=== PATIENT | male | born 1945 | race Caucasian/White ===

== ENCOUNTER → 2018-08-28 09:57 | Outpatient (CLI) | payer MEDICARE, SELFPAY | PROVIDERS: Family Provider Family Medicine; PCP Family Medicine; Visit Provider Family Medicine | DX: E11.621 Type 2 diabetes mellitus with foot ulcer (principal); L97.521 Non-pressure chronic ulcer of other part of left foot limited to breakdown of skin | CPT/HCPCS: 97597; 99202; 99213 ==

== ENCOUNTER → 2018-09-04 10:33 | Outpatient (CLI) | payer MEDICARE, SELFPAY | PROVIDERS: Family Provider Family Medicine; PCP Family Medicine; Visit Provider Family Medicine | DX: L89.893 Pressure ulcer of other site, stage 3 (principal); E08.40 Diabetes mellitus due to underlying condition with diabetic neuropathy, unspecified; E08.621 Diabetes mellitus due to underlying condition with foot ulcer; E11.59 Type 2 diabetes mellitus with other circulatory complications | CPT/HCPCS: 11042; 87070; 87077; 87186; 87205; 93922; 99213 ==

== ENCOUNTER → 2018-09-11 11:08 | Outpatient (CLI) | payer MEDICARE, SELFPAY | PROVIDERS: Family Provider Family Medicine; PCP Family Medicine; Visit Provider Podiatrist Primary Podiatric Medicine | DX: E11.621 Type 2 diabetes mellitus with foot ulcer (principal); L97.521 Non-pressure chronic ulcer of other part of left foot limited to breakdown of skin | CPT/HCPCS: 97597 ==

== ENCOUNTER → 2018-09-18 09:40 | Outpatient (CLI) | payer MEDICARE, SELFPAY | PROVIDERS: Family Provider Family Medicine; PCP Family Medicine; Visit Provider Podiatrist Primary Podiatric Medicine | DX: E11.621 Type 2 diabetes mellitus with foot ulcer (principal); L97.511 Non-pressure chronic ulcer of other part of right foot limited to breakdown of skin | CPT/HCPCS: 97597 ==

== ENCOUNTER → 2018-10-02 09:05 | Outpatient (CLI) | payer MEDICARE, SELFPAY | PROVIDERS: Family Provider Family Medicine; PCP Family Medicine; Visit Provider Family Medicine | DX: E11.621 Type 2 diabetes mellitus with foot ulcer (principal); L97.521 Non-pressure chronic ulcer of other part of left foot limited to breakdown of skin | CPT/HCPCS: 97597 ==

== ENCOUNTER → 2018-10-09 08:43 | Outpatient (CLI) | payer MEDICARE, SELFPAY | PROVIDERS: Family Provider Family Medicine; PCP Family Medicine; Visit Provider Podiatrist Primary Podiatric Medicine | DX: E11.621 Type 2 diabetes mellitus with foot ulcer (principal); L97.521 Non-pressure chronic ulcer of other part of left foot limited to breakdown of skin | CPT/HCPCS: 97597 ==

== ENCOUNTER → 2018-10-16 09:04 | Outpatient (CLI) | payer MEDICARE, SELFPAY | PROVIDERS: Family Provider Family Medicine; PCP Family Medicine; Visit Provider Podiatrist Primary Podiatric Medicine | DX: E11.621 Type 2 diabetes mellitus with foot ulcer (principal); L97.521 Non-pressure chronic ulcer of other part of left foot limited to breakdown of skin | CPT/HCPCS: 97597 ==

== ENCOUNTER → 2018-10-23 09:30 | Outpatient (CLI) | payer MEDICARE, SELFPAY | PROVIDERS: Family Provider Family Medicine; PCP Family Medicine; Visit Provider Podiatrist Primary Podiatric Medicine | DX: E11.621 Type 2 diabetes mellitus with foot ulcer (principal); L97.521 Non-pressure chronic ulcer of other part of left foot limited to breakdown of skin | CPT/HCPCS: 97597 ==

== ENCOUNTER → 2018-11-06 09:39 | Outpatient (CLI) | payer MEDICARE, SELFPAY | PROVIDERS: Family Provider Family Medicine; PCP Family Medicine; Visit Provider Podiatrist Primary Podiatric Medicine | DX: Z48.817 Encounter for surgical aftercare following surgery on the skin and subcutaneous tissue (principal) | CPT/HCPCS: 99212; 99213 ==

== ENCOUNTER → 2019-06-05 09:08 | Outpatient (CLI) | payer MEDICARE, SELFPAY ==
--- NOTE | 2019-06-05 | DI.US.S_ITS ---
PROCEDURE: US ABDOMEN COMPLETE INDICATIONS: EPIGASTRIC PAIN TECHNIQUE: Real-time scanning was performed of the abdominal and retroperitoneal organs, with image documentation. COMPARISON: None. FINDINGS: Liver: Liver is normal in size and homogeneous in echotexture. Gallbladder: No findings of gallstones or sludge are seen. The gallbladder wall is not thickened, measuring 3 mm or less. No specific pericholecystic fluid is seen. The sonographic Crawford sign is negative. Biliary ducts: Intrahepatic bile ducts are non-dilated. Extrahepatic bile duct caliber measures 5 mm. Normal is 6-7 mm or less in diameter, or 10 mm or less post-cholecystectomy. Pancreas: Visualized portions of the pancreas are sonographically normal. Spleen: Spleen is normal in size and homogeneous in echotexture. Kidneys: Kidneys are normal in size and echotexture. Right kidney measures 11.9 cm long; left kidney measures 11.4 cm long. No hydronephrosis or nephrolithiasis. No solid masses. Aorta: Visualized aorta is normal in caliber at less than 3 cm. Iliacs: Not seen. IVC: Intrahepatic inferior vena cava is patent. Miscellaneous: No free abdominal fluid. IMPRESSION: The gallbladder demonstrates a normal sonographic appearance. No biliary dilatation is seen. Dictated by: Chetan Saab M.D. on 06/05/2019 at 11:27 Approved by: Chetan Saab M.D. on 06/05/2019 at 11:28
== END ==
PROVIDERS: Family Provider Family Medicine; PCP Family Medicine; Referring Provider Family Medicine; Visit Provider Family Medicine
DX: R10.13 Epigastric pain (principal)
CPT/HCPCS: 76700

== ENCOUNTER → 2019-08-14 13:19 | Outpatient (CLI) | payer MEDICARE, SELFPAY ==
--- NOTE | 2019-08-14 | DI.MRI.S_ITS ---
PROCEDURE: MR STROKE Pre- and post-contrast brain MRI, non-contrast brain MR angiogram, pre- and postcontrast neck MR angiogram INDICATIONS: Sensorineural hearing loss, bilateral TECHNIQUE: Brain: Noncontrast axial T1 spin echo, axial T2 fast spin echo, sagittal and axial FLAIR, coronal T2 fast spin echo, axial gradient echo, axial diffusion and ADC through the brain. After the administration of contrast, axial 3D VIBE of the cranial vasculature and brain. Brain MRA: Non-contrast 3-D time of flight MR angiogram, with multiple gkgsyyr-dkjzrorxs-wmhkyiwajw (MIP) reformats performed. Neck MRA: Axial and sagittal TruFISP through the neck. Coronal dynamic MR angiogram during administration of contrast in the arterial and venous phases, with 3-dimenstional oflmhea-hajnnuzas-kmrzvkvqtd (MIP) reformats constructed from subtraction images. COMPARISON: None. FINDINGS: Image quality: Excellent. BRAIN: CSF spaces: Ventricles are normal in size and shape. Basal cisterns are patent. No extra-axial fluid collections. Brain: There is a small area of old infarct in the right frontoparietal lobe with encephalomalacia and gliosis. No intracranial bleeds or mass effects. Price-white matter interface is normal. Diffusion weighted images show no acute ischemic insults. Brainstem appears normal. Normal intravascular flow voids are present. No abnormal intracranial enhancement. Skull and face: Calvarial marrow signal is normal. Orbits appear normal. Sinuses: There is a mucus retention cyst or polyp in the left maxillary sinus. The mastoids are clear. BRAIN MR ANGIOGRAM: Anterior circulation: The right internal carotid artery is occluded distally. The left internal carotid is normal in size and enhancement. Possible small saccular aneurysm along the inferior wall of the distal left internal carotid (cavernous segment). The flow within the paired anterior cerebral arteries is normal and symmetric. The flow within the middle cerebral arteries is normal and symmetric. The right middle cerebral artery is supplied from collateral flows via the [place]. The anterior communicating artery is seen. No aneurysms. Posterior circulation: The visualized portions of the vertebral arteries demonstrate normal caliber, and join to form a normal appearing basilar artery. The flow within the posterior cerebral arteries is normal and symmetric. No stenoses, occlusions, or aneurysms. NECK MR ANGIOGRAM: Carotids: Great vessels demonstrate a conventional anatomy as they arise from the aortic arch. The origins of the common carotid arteries appear patent. The calibers and courses of both common carotid arteries are normal. There is occlusion of the right internal cord artery just beyond the carotid bifurcation. The left internal carotid artery demonstrates normal course and caliber. Posterior circulation: Dominant right vertebral artery which is patent and normal in caliber. The origin of the left vertebral artery is not well seen. More superior portions of both vertebral arteries demonstrate normal course and caliber, and join to form a normal appearing basilar artery. Miscellaneous: Subclavian arteries appear patent. Pre-contrast images through the neck show no soft tissue abnormalities. IMPRESSION: BRAIN MRI: 1. No acute intracranial abnormalities. 2. 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 3. Cerebral volume loss and chronic microvascular ischemic changes. 4. Mucus retention cyst or polyp in the left maxillary sinus. BRAIN MR ANGIOGRAM: 1. 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 2. 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 NECK MR ANGIOGRAM: 1. Occlusion of the right internal carotid artery just beyond the carotid bifurcation. 2. Left vertebral artery origin is not well-seen. 3. Dominant right vertebral artery. Dictated by: Emanuel Ricketts M.D. on 08/14/2019 at 15:11 Approved by: Emanuel Ricketts M.D. on 08/14/2019 at 15:46
== END ==
PROVIDERS: Family Provider Family Medicine; PCP Family Medicine; Referring Provider Family Medicine; Visit Provider Family Medicine
DX: H90.3 Sensorineural hearing loss, bilateral (principal); R27.0 Ataxia, unspecified; I65.21 Occlusion and stenosis of right carotid artery; I69.398 Other sequelae of cerebral infarction; G93.89 Other specified disorders of brain
CPT/HCPCS: 70548; 70553; A9579

== ENCOUNTER → 2020-04-23 09:32 | Outpatient (CLI) | payer MEDICARE, OTHER, SELFPAY ==
--- NOTE | 2020-04-23 18:29 | DI.NM.S_ITS ---
DATE OF SERVICE: 04/23/2020 PROCEDURE: Exercise perfusion study. INDICATIONS: Coronary artery disease, history of RCA stent, peripheral artery disease, hypertension, hyperlipidemia, shortness of breath, COPD. RADIOPHARMACEUTICAL: 26.9 millicurie technetium-99m Myoview IV was injected at stress and 13.9 millicurie technetium-99m Myoview IV was injected at rest. CARDIAC STRESS: The patient underwent exercise perfusion study under the supervision of an attending staff. He walked on modified Wally protocol for 3 minutes 28 seconds and achieved a heart rate of 123 beats per minute. There was a normal blood pressure response. The patient developed significant shortness of breath within 1 minute of exercise. No chest pain. Baseline rhythm was atrial fibrillation with controlled ventricular rate. During exercise, there was enhanced chronotropic response. Maximum heart rate was 179 beats per minute. During exercise, there were significant artifacts seen. Hence, difficult interpretation, however, in the immediate recovery, there were no significant ischemic changes seen. The patient remained in AFib. RAW DATA: There is increased subdiaphragmatic activity. GATED STUDY: Stress LV ejection fraction is 73 percent without any obvious wall motion abnormalities. Resting end-diastolic volume 115 mL. TID ratio 0.75, which is within normal limits. Lung/heart ratio 0.38, which is within normal limits. MYOCARDIAL PERFUSION: Stress supine, resting supine and stress prone images were compared to each other. Stress supine images revealed very small minimally decreased perfusion of inferior wall, which got resolved during prone images suggestive of diaphragmatic tissue attenuation artifact. Overall, I do not see any convincing ischemia infarction pattern. CONCLUSION: I will call this likely a normal myocardial perfusion study with evidence of diaphragmatic tissue attenuation artifact ,which got improved during prone images. The patient has baseline AFib. Poor exercise tolerance. Patient developed significant shortness of breath during exercise. The patient has underlying COPD, as well. Left ventricular function appears to be preserved. Overall, as far as perfusion scan is concerned, this is a low-risk myocardial perfusion scan. Correlate clinically. Brian Helton - MEENAKSHI/ebony/michael doc#: [id number]/job#: [id number] dd: 04/23/2020 17:25:00 dt: 04/23/2020 18:18:00 DICTATING MD/COPIES TO: Sidra Quijano MD COPIES MNE: BERNADINE;
== END ==
PROVIDERS: Family Provider Family Medicine; PCP Family Medicine; Referring Provider Internal Medicine Cardiovascular Disease; Visit Provider Internal Medicine Cardiovascular Disease
DX: I25.10 Atherosclerotic heart disease of native coronary artery without angina pectoris (principal); R42 Dizziness and giddiness; I73.9 Peripheral vascular disease, unspecified; I10 Essential (primary) hypertension; E78.5 Hyperlipidemia, unspecified; R06.02 Shortness of breath; J44.9 Chronic obstructive pulmonary disease, unspecified; Z95.5 Presence of coronary angioplasty implant and graft
CPT/HCPCS: 78452; 93017; A9502

== ENCOUNTER → 2020-05-22 10:51 | Outpatient (CLI) | payer MEDICARE, OTHER, SELFPAY ==
--- NOTE | 2020-05-22 | DI.MRI.S_ITS ---
PROCEDURE: MR STROKE Pre- and post-contrast brain MRI, non-contrast brain MR angiogram, pre- and postcontrast neck MR angiogram INDICATIONS: Dizziness and giddiness TECHNIQUE: Brain: Noncontrast axial T1 spin echo, axial T2 fast spin echo, sagittal and axial FLAIR, coronal T2 fast spin echo, axial gradient echo, axial diffusion and ADC through the brain. After the administration of contrast, axial 3D VIBE of the cranial vasculature and brain. Brain MRA: Non-contrast 3-D time of flight MR angiogram, with multiple dkxhwke-bavompkpp-dhxhdsiavn (MIP) reformats performed. Neck MRA: Axial and sagittal TruFISP through the neck. Coronal dynamic MR angiogram during administration of contrast in the arterial and venous phases, with 3-dimenstional rybpzic-aojscmirx-msraqkidgo (MIP) reformats constructed from subtraction images. COMPARISON: [facility], MR, MR STROKE, 08/14/2019, 13:58. FINDINGS: Image quality: Excellent. BRAIN: CSF spaces: Ventricles are normal in size and shape, with note made of stable asymmetry of the lateral ventricles, with the right smaller than the left. This is considered to be within developmental limits.. Basal cisterns are patent. No extra-axial fluid collections. Brain: No intracranial bleeds or mass effects. Price-white matter interface is normal. Diffusion weighted images show no acute ischemic insults. A remote infarction is again seen involving the right frontal parietal region. Brain parenchymal volume loss is seen. Chronic small vessel ischemic changes are seen. Brainstem appears normal. No abnormal intracranial enhancement. Relatively prominent perivascular spaces are noted. Skull and face: Calvarial marrow signal is normal. Orbits appear normal. Sinuses: No significant paranasal sinus abnormality is seen. There is moderate abnormal fluid seen within the left mastoid air cells. Mild leftward nasal septal deviation is incidentally noted. BRAIN MR ANGIOGRAM: Anterior circulation: There is no flow seen within the right internal carotid artery. The left internal carotid artery is robust. 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 The flow within the paired anterior cerebral arteries is normal and symmetric. The flow within the middle cerebral arteries is asymmetric and decreased on the right. The anterior communicating artery is seen. Posterior circulation: The visualized portions of the vertebral arteries demonstrate normal caliber, and join to form a normal appearing basilar artery. The flow within the posterior cerebral arteries is normal and symmetric. No stenoses, occlusions, or aneurysms. NECK MR ANGIOGRAM: Carotids: Great vessels demonstrate a conventional anatomy as they arise from the aortic arch. The origins of the common carotid arteries appear patent. The calibers and courses of both common carotid arteries are normal. The bifurcation regions demonstrate atherosclerotic irregularity. There is complete occlusion of the right internal carotid artery at its origin. There is a high-grade stenosis seen involving the right proximal external carotid artery, approximately 70%. No hemodynamically significant stenosis can be seen involving the left internal carotid artery. Posterior circulation: There is approximately 50% narrowing seen involving the origin of the left vertebral artery. More superior portions of both vertebral arteries demonstrate normal course. The right vertebral artery is dominant to the left. Miscellaneous: Subclavian arteries appear patent. Pre-contrast images through the neck show no soft tissue abnormalities. IMPRESSION: BRAIN MRI: No findings of acute or subacute infarction can be seen. Note is made of age-appropriate brain parenchymal volume loss and chronic small vessel ischemic changes. There is a remote right frontoparietal region infarct. No masses or abnormal enhancement can be seen. BRAIN MR ANGIOGRAM: No flow seen within the right internal carotid artery. There is mild asymmetric flow seen within the middle cerebral arteries, right decreased compared to left. 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 NECK MR ANGIOGRAM: There is complete occlusion of the right internal carotid artery at its origin, as previously demonstrated. There is no significant stenosis seen of the left internal carotid artery. There is approximately 50% narrowing seen involving the origin of the left vertebral artery. The right vertebral artery is dominant to the left. Dictated by: Chetan Saab M.D. on 05/22/2020 at 11:04 Approved by: Chetan Saab M.D. on 05/22/2020 at 11:22
== END ==
PROVIDERS: Family Provider Family Medicine; PCP Family Medicine; Referring Provider Family Medicine; Visit Provider Family Medicine
DX: R42 Dizziness and giddiness (principal); I65.21 Occlusion and stenosis of right carotid artery
CPT/HCPCS: 70548; 70553

== ENCOUNTER → 2020-10-10 11:43 | Outpatient (CLI) | payer MEDICARE, OTHER, SELFPAY ==
[2020-10-10 20:22] LABS: COVID19 - ORCAS (NP or Nasal) Negative (Negative)
== END ==
PROVIDERS: Family Provider Family Medicine; PCP Family Medicine; Visit Provider Family Medicine
DX: Z20.822 Contact with and (suspected) exposure to COVID-19 (principal)
CPT/HCPCS: C9803; U0003

== ENCOUNTER → 2020-12-05 08:33 | Outpatient (CLI) | payer MEDICARE, OTHER, SELFPAY ==
[2020-12-05 19:31] LABS: COVID19 - ORCAS (NP or Nasal) Negative (Negative)
== END ==
PROVIDERS: Family Provider Family Medicine; PCP Family Medicine; Referring Provider Family Medicine; Visit Provider Family Medicine
DX: Z20.822 Contact with and (suspected) exposure to COVID-19 (principal)
CPT/HCPCS: U0003

== ENCOUNTER → 2021-07-30 11:23 | Outpatient (CLI) | payer MEDICARE, OTHER, SELFPAY ==
[2021-07-30 20:05] LABS: Prothrombin Time 70.7 SECONDS (10.1-12.7)
[2021-07-30 20:15] LABS: INR 5.9 (0.9-1.3)
== END ==
PROVIDERS: Family Provider Family Medicine; PCP Family Medicine; Visit Provider Family Medicine
DX: Z79.01 Long term (current) use of anticoagulants (principal)
CPT/HCPCS: 85610

== ENCOUNTER → 2021-09-11 11:13 | Outpatient (CLI) | payer MEDICARE, OTHER, SELFPAY ==
[2021-09-11 19:57] LABS: COVID19 - ORCAS (NP or Nasal) Negative (Negative)
== END ==
PROVIDERS: Family Provider Family Medicine; PCP Family Medicine; Visit Provider Physician Assistant Medical
DX: Z20.822 Contact with and (suspected) exposure to COVID-19 (principal)
CPT/HCPCS: U0003

== ENCOUNTER → 2021-10-29 10:46 | Outpatient (CLI) | payer MEDICARE, OTHER, SELFPAY ==
[2021-10-29 19:33] LABS: Hemoglobin A1C% w Est Avg Glu 8.6 % (4.0-6.0)
== END ==
PROVIDERS: Family Provider Family Medicine; PCP Family Medicine; Visit Provider Physician Assistant
DX: E11.69 Type 2 diabetes mellitus with other specified complication (principal); E78.5 Hyperlipidemia, unspecified
CPT/HCPCS: 83036

== ENCOUNTER 2021-12-16 12:30 | Outpatient (RCR) | payer MEDICARE, OTHER, SELFPAY | END 2021-12-16 14:30 | LOC: PUL 12:30 | PROVIDERS: Family Provider Family Medicine; PCP Family Medicine; Referring Provider Internal Medicine Critical Care Medicine; Visit Provider Internal Medicine Critical Care Medicine | DX: J43.2 Centrilobular emphysema (principal) | CPT/HCPCS: 94626 ==

== ENCOUNTER → 2022-02-23 14:45 | Outpatient (CLI) | payer MEDICARE, OTHER, SELFPAY ==
[2022-02-23 19:23] LABS: Add Manual Diff / Slide Review NO; Alanine Aminotransferase 22 IU/L (<50); Albumin 3.7 g/dL (3.5-5.0); Albumin Globulin Ratio 1.3 (1.0-2.8); Alkaline Phosphatase 133 U/L (38-126); Aspartate Aminotransferase 23 IU/L (17-59); BUN Creatinine Ratio 19.4 (6-22); Basophils Absolute Auto 100 /uL (0-100); Basophils Percent Auto 1.2 % (0-2); Bilirubin Total 0.5 mg/dL (0.2-1.3); Blood Urea Nitrogen 19 mg/dL (9-20); Calcium 9.2 mg/dL (8.4-10.2); Carbon Dioxide 25 mmol/L (22-32); Chloride 103 mmol/L (98-107); Eosinophils Absolute Auto 700 /uL (0-450); Estimated Glomerular Filt Rate > 60 mL/min (>60); Globulin 2.8 g/dL (1.7-4.1); Glucose 132 mg/dL (80-110); HEMOLYSIS < 15 (0-50); Hematocrit 36.3 % (41-53); Hemoglobin 12.3 g/dL (13.5-17.5); Lymphocytes Absolute Auto 1200 /uL (1100-4500); Lymphocytes Percent Auto 13.9 % (25-40); Mean Corpuscular HGB Conc 33.8 % (30-36); Mean Corpuscular Hemoglobin 30.7 PG (26-34); Mean Corpuscular Volume 90.9 fL (80-100); Monocytes Absolute Auto 800 /uL (0-900); Monocytes Percent Auto 9.3 % (3-14); Neutrophils Absolute Auto 5900 /uL (1500-7000); Neutrophils Percent Auto 67.6 % (50-75); Platelet Count 195 X10^3/uL (150-400); Potassium 4.2 mmol/L (3.4-5.1); Red Blood Cell Count 3.99 X10^6/uL (4.5-5.9); Red Cell Distribution Width 15.1 % (11.6-14.8); Sodium 140 mmol/L (137-145); Total Protein 6.5 g/dL (6.3-8.2); Uric Acid 5.7 mg/dL (3.5-8.5); White Blood Cell Count 8.8 X10^3/uL (4.5-11.0)
[2022-02-23 20:25] LABS: Erythrocyte Sedimentation Rate 34 MM/HR (0-15)
== END ==
PROVIDERS: Family Provider Family Medicine; PCP Physician Assistant; Visit Provider Physician Assistant
DX: I27.81 Cor pulmonale (chronic) (principal); E11.9 Type 2 diabetes mellitus without complications; M79.673 Pain in unspecified foot
CPT/HCPCS: 80053; 84550; 85025; 85651

== ENCOUNTER → 2022-04-27 09:19 | Outpatient (CLI) | payer MEDICARE, OTHER, SELFPAY ==
[2022-04-27 19:46] LABS: BUN Creatinine Ratio 19.1 (6-22); Blood Urea Nitrogen 18 mg/dL (9-20); Calcium 8.7 mg/dL (8.4-10.2); Carbon Dioxide 25 mmol/L (22-32); Chloride 103 mmol/L (98-107); Cholesterol 138 mg/dL (140-199); Estimated Glomerular Filt Rate > 60 mL/min (>60); Glucose 117 mg/dL (80-110); HDL Cholesterol 36 mg/dL (40-60); HEMOLYSIS < 15 (0-50); LDL Cholesterol Calculated 82 mg/dL (<100); Potassium 4.5 mmol/L (3.4-5.1); Sodium 137 mmol/L (137-145); Triglycerides 98 mg/dL (35-150)
[2022-04-27 19:49] LABS: Add Manual Diff / Slide Review NO; Basophils Absolute Auto 100 /uL (0-100); Basophils Percent Auto 1.3 % (0-2); Eosinophils Absolute Auto 500 /uL (0-450); Hematocrit 37.6 % (41-53); Hemoglobin 12.2 g/dL (13.5-17.5); Lymphocytes Absolute Auto 1200 /uL (1100-4500); Mean Corpuscular HGB Conc 32.6 % (30-36); Mean Corpuscular Hemoglobin 29.6 PG (26-34); Mean Corpuscular Volume 90.9 fL (80-100); Monocytes Absolute Auto 700 /uL (0-900); Monocytes Percent Auto 9.5 % (3-14); Neutrophils Absolute Auto 5100 /uL (1500-7000); Neutrophils Percent Auto 66.2 % (50-75); Platelet Count 186 X10^3/uL (150-400); Red Blood Cell Count 4.14 X10^6/uL (4.5-5.9); Red Cell Distribution Width 14.3 % (11.6-14.8); White Blood Cell Count 7.8 X10^3/uL (4.5-11.0)
== END ==
PROVIDERS: Family Provider Family Medicine; PCP Physician Assistant; Visit Provider Internal Medicine Cardiovascular Disease
DX: I25.10 Atherosclerotic heart disease of native coronary artery without angina pectoris (principal); E78.5 Hyperlipidemia, unspecified
CPT/HCPCS: 80048; 80061; 85025

== ENCOUNTER → 2022-10-13 09:25 | Outpatient (CLI) | payer MEDICARE, OTHER, SELFPAY ==
[2022-10-13 19:57] LABS: Add Manual Diff / Slide Review NO; Basophils Absolute Auto 100 /uL (0-100); Basophils Percent Auto 1.2 % (0-2); Eosinophils Absolute Auto 300 /uL (0-450); Eosinophils Percent Auto 5.5 % (2-4); Hematocrit 33.3 % (41-53); Hemoglobin 11.1 g/dL (13.5-17.5); Lymphocytes Absolute Auto 1300 /uL (1100-4500); Lymphocytes Percent Auto 19.9 % (25-40); Mean Corpuscular HGB Conc 33.5 % (30-36); Mean Corpuscular Hemoglobin 30.3 PG (26-34); Mean Corpuscular Volume 90.6 fL (80-100); Monocytes Absolute Auto 800 /uL (0-900); Monocytes Percent Auto 12.2 % (3-14); Neutrophils Absolute Auto 3900 /uL (1500-7000); Neutrophils Percent Auto 61.2 % (50-75); Platelet Count 202 X10^3/uL (150-400); Red Blood Cell Count 3.67 X10^6/uL (4.5-5.9); Red Cell Distribution Width 15.9 % (11.6-14.8); White Blood Cell Count 6.3 X10^3/uL (4.5-11.0)
[2022-10-13 19:58] LABS: Alanine Aminotransferase 20 IU/L (<50); Albumin 3.4 g/dL (3.5-5.0); Alkaline Phosphatase 107 U/L (38-126); Aspartate Aminotransferase 20 IU/L (17-59); BUN Creatinine Ratio 18.3 (6-22); Bilirubin Total 0.8 mg/dL (0.2-1.3); Blood Urea Nitrogen 17 mg/dL (9-20); Calcium 8.9 mg/dL (8.4-10.2); Carbon Dioxide 25 mmol/L (22-32); Chloride 103 mmol/L (98-107); Estimated Glomerular Filt Rate > 60 mL/min (>60); Globulin 3.3 g/dL (1.7-4.1); Glucose 105 mg/dL (80-110); HEMOLYSIS < 15 (0-50); Potassium 4.5 mmol/L (3.4-5.1); Sodium 136 mmol/L (137-145); Total Protein 6.7 g/dL (6.3-8.2)
[2022-10-14 21:40] LABS: x Labcorp Estim. Avg Glu (eAG) 143 mg/dL (.); x Labcorp Hemoglobin A1c 6.6 % (4.8-5.6)
== END ==
PROVIDERS: Family Provider Family Medicine; PCP Physician Assistant; Visit Provider Physician Assistant
DX: I27.81 Cor pulmonale (chronic) (principal); E11.9 Type 2 diabetes mellitus without complications; L08.9 Local infection of the skin and subcutaneous tissue, unspecified
CPT/HCPCS: 80053; 83036; 85025

== ENCOUNTER → 2022-10-21 13:16 | Outpatient (CLI) | payer MEDICARE, OTHER, SELFPAY ==
[2022-10-25 11:52] LABS: Fecal Immunochemical Test Positive (Negative)
== END ==
PROVIDERS: Family Provider Family Medicine; PCP Physician Assistant; Visit Provider Physician Assistant
DX: D64.9 Anemia, unspecified (principal)
CPT/HCPCS: 82274

== ENCOUNTER → 2022-10-28 12:50 | Outpatient (CLI) | payer MEDICARE, OTHER, SELFPAY | PROVIDERS: Family Provider Family Medicine; PCP Physician Assistant; Referring Provider Physician Assistant; Visit Provider Surgery | DX: E11.622 Type 2 diabetes mellitus with other skin ulcer (principal); L98.492 Non-pressure chronic ulcer of skin of other sites with fat layer exposed; M19.041 Primary osteoarthritis, right hand; I48.91 Unspecified atrial fibrillation; Z79.84 Long term (current) use of oral hypoglycemic drugs; Z79.85 Long-term (current) use of injectable non-insulin antidiabetic drugs; Z79.01 Long term (current) use of anticoagulants | CPT/HCPCS: 11042; 99203; 99212 ==

== ENCOUNTER → 2022-11-04 15:34 | Outpatient (CLI) | payer MEDICARE, OTHER, SELFPAY | PROVIDERS: Family Provider Family Medicine; PCP Physician Assistant; Referring Provider Physician Assistant; Visit Provider Surgery | DX: E11.622 Type 2 diabetes mellitus with other skin ulcer (principal); L98.492 Non-pressure chronic ulcer of skin of other sites with fat layer exposed; Z79.01 Long term (current) use of anticoagulants | CPT/HCPCS: 11042 ==

== ENCOUNTER → 2022-11-11 10:32 | Outpatient (CLI) | payer MEDICARE, OTHER, SELFPAY | PROVIDERS: Family Provider Family Medicine; PCP Physician Assistant; Referring Provider Physician Assistant; Visit Provider Surgery | DX: E11.622 Type 2 diabetes mellitus with other skin ulcer (principal); L98.492 Non-pressure chronic ulcer of skin of other sites with fat layer exposed | CPT/HCPCS: 15275; Q4196 ==

== ENCOUNTER → 2022-11-18 11:12 | Outpatient (CLI) | payer MEDICARE, OTHER, SELFPAY | PROVIDERS: Family Provider Family Medicine; PCP Physician Assistant; Referring Provider Physician Assistant; Visit Provider Surgery | DX: E11.628 Type 2 diabetes mellitus with other skin complications (principal); S61.202A Unspecified open wound of right middle finger without damage to nail, initial encounter | CPT/HCPCS: 15275; Q4196 ==

== ENCOUNTER → 2023-01-07 09:26 | Outpatient (CLI) | payer MEDICARE, OTHER, SELFPAY | PROVIDERS: Family Provider Family Medicine; PCP Family Medicine; Visit Provider Family Medicine | DX: M00.9 Pyogenic arthritis, unspecified (principal) | CPT/HCPCS: 87070; 87075; 87077; 87147; 87186; 87205 ==

== ENCOUNTER → 2023-01-12 11:16 | Outpatient (CLI) | payer MEDICARE, OTHER, SELFPAY ==
[2023-01-12 12:46] LABS: Add Manual Diff / Slide Review NO; Basophils Absolute Auto 100 /uL (0-100); Basophils Percent Auto 1.2 % (0-2); Eosinophils Absolute Auto 400 /uL (0-450); Eosinophils Percent Auto 4.6 % (2-4); Hematocrit 23.6 % (41-53); Lymphocytes Absolute Auto 1200 /uL (1100-4500); Lymphocytes Percent Auto 15.9 % (25-40); Mean Corpuscular HGB Conc 34.1 % (30-36); Monocytes Absolute Auto 600 /uL (0-900); Monocytes Percent Auto 8.4 % (3-14); Neutrophils Absolute Auto 5400 /uL (1500-7000); Neutrophils Percent Auto 69.9 % (50-75); Platelet Count 290 X10^3/uL (150-400); Red Blood Cell Count 2.59 X10^6/uL (4.5-5.9); Red Cell Distribution Width 15.5 % (11.6-14.8); White Blood Cell Count 7.7 X10^3/uL (4.5-11.0)
[2023-01-12 12:55] LABS: Hemoglobin A1C% w Est Avg Glu 6.9 % (4.0-6.0)
[2023-01-12 13:37] LABS: Erythrocyte Sedimentation Rate > 140 MM/HR (0-15)
[2023-01-12 13:38] LABS: C-Reactive Protein Quant 2.8 mg/dL (<1.0)
[2023-01-12 16:41] LABS: Creatinine Urine Random 64.6 mg/dL
[2023-01-12 16:46] LABS: Microalbumi Creatinin Ratio Ur 122.2 ug/mg CR (<30); Microalbumin Urine Random 7.9 mg/dL (0-1.6)
== END ==
PROVIDERS: Family Provider Family Medicine; PCP Family Medicine; Referring Provider Family Medicine; Visit Provider Family Medicine
DX: I27.81 Cor pulmonale (chronic) (principal); E10.22 Type 1 diabetes mellitus with diabetic chronic kidney disease; M00.9 Pyogenic arthritis, unspecified; N18.5 Chronic kidney disease, stage 5; Z99.2 Dependence on renal dialysis
CPT/HCPCS: 36415; 82043; 82570; 83036; 85025; 85651; 86140

== ENCOUNTER → 2023-02-09 11:16 | Outpatient (CLI) | payer MEDICARE, OTHER, SELFPAY ==
[2023-02-09 19:19] LABS: BUN Creatinine Ratio 9.6 (6-22); Blood Urea Nitrogen 22 mg/dL (9-20); Cholesterol 115 mg/dL (140-199); Estimated Glomerular Filt Rate 29 mL/min (>60); HDL Cholesterol 39 mg/dL (40-60); LDL Cholesterol Calculated 58 mg/dL (<100); Triglycerides 91 mg/dL (35-150)
[2023-02-09 19:22] LABS: Add Manual Diff / Slide Review NO; Basophils Absolute Auto 100 /uL (0-100); Eosinophils Absolute Auto 200 /uL (0-450); Eosinophils Percent Auto 3.7 % (2-4); Hematocrit 23.7 % (41-53); Lymphocytes Absolute Auto 1100 /uL (1100-4500); Lymphocytes Percent Auto 17.9 % (25-40); Mean Corpuscular HGB Conc 33.8 % (30-36); Mean Corpuscular Hemoglobin 31.9 PG (26-34); Mean Corpuscular Volume 94.3 fL (80-100); Monocytes Absolute Auto 600 /uL (0-900); Monocytes Percent Auto 9.1 % (3-14); Neutrophils Absolute Auto 4200 /uL (1500-7000); Neutrophils Percent Auto 68.3 % (50-75); Platelet Count 208 X10^3/uL (150-400); Red Blood Cell Count 2.52 X10^6/uL (4.5-5.9); Red Cell Distribution Width 15.4 % (11.6-14.8); White Blood Cell Count 6.2 X10^3/uL (4.5-11.0)
[2023-02-09 19:25] LABS: HEMOLYSIS < 15 (0-50); Iron 102 ug/dL (49-181)
[2023-02-09 19:36] LABS: Percent Iron Saturation 34 % (20-50); Total Iron Binding Capacity 304 ug/dL (261-462); Transferrin 198 mg/dL (206-381)
[2023-02-09 19:43] LABS: Creatinine Urine Random 65.1 mg/dL
[2023-02-09 19:48] LABS: Microalbumi Creatinin Ratio Ur 79.8 ug/mg CR (<30); Microalbumin Urine Random 5.2 mg/dL (0-1.6)
[2023-02-09 19:49] LABS: TSH w/ Reflex to FT4 2.12 uIU/mL (0.47-4.68)
[2023-02-09 19:58] LABS: Reticulocyte Count, Percent 1.5 % (0.9-2.6)
[2023-02-09 20:04] LABS: Vitamin B12 935 pg/mL (239-931)
== END ==
PROVIDERS: Family Provider Family Medicine; PCP Family Medicine; Visit Provider Family Medicine
DX: E11.9 Type 2 diabetes mellitus without complications (principal); E11.8 Type 2 diabetes mellitus with unspecified complications; D64.9 Anemia, unspecified; I25.10 Atherosclerotic heart disease of native coronary artery without angina pectoris; E10.22 Type 1 diabetes mellitus with diabetic chronic kidney disease; N18.5 Chronic kidney disease, stage 5; E11.621 Type 2 diabetes mellitus with foot ulcer; L97.509 Non-pressure chronic ulcer of other part of unspecified foot with unspecified severity; E78.2 Mixed hyperlipidemia; E11.59 Type 2 diabetes mellitus with other circulatory complications; I15.2 Hypertension secondary to endocrine disorders; R19.5 Other fecal abnormalities; Z99.2 Dependence on renal dialysis; N18.6 End stage renal disease; D63.1 Anemia in chronic kidney disease
CPT/HCPCS: 80061; 82043; 82565; 82570; 82607; 83540; 83550; 84443; 84520; 85025; 85045

== ENCOUNTER → 2023-02-28 12:56 | Outpatient (CLI) | payer MEDICARE, OTHER, SELFPAY | LOC: WC 12:58 | PROVIDERS: Family Provider Family Medicine; PCP Family Medicine; Referring Provider Physician Assistant Surgical; Visit Provider Surgery | DX: I70.235 Atherosclerosis of native arteries of right leg with ulceration of other part of foot (principal); E11.51 Type 2 diabetes mellitus with diabetic peripheral angiopathy without gangrene; E11.622 Type 2 diabetes mellitus with other skin ulcer; L97.512 Non-pressure chronic ulcer of other part of right foot with fat layer exposed; M79.674 Pain in right toe(s); L98.492 Non-pressure chronic ulcer of skin of other sites with fat layer exposed | CPT/HCPCS: 97597; 99214 ==

== ENCOUNTER → 2023-03-09 08:47 | Outpatient (CLI) | payer MEDICARE, OTHER, SELFPAY ==
--- NOTE | 2023-03-09 08:49 | DI.RAD.S_ITS ---
PROCEDURE: XR FOOT RT MIN 3V INDICATIONS: Wounds to right foot TECHNIQUE: 3 views of the foot were acquired. COMPARISON: None. FINDINGS: Bones: No fractures or dislocations. No suspicious bony lesions. Dtbc-eq-qxjllony osteoarthritic changes. Soft tissues: No tibiotalar joint effusion. Achilles tendon appears normal. Soft tissue swelling. IMPRESSION: No acute osseous abnormalities. If there is clinical suspicion for osteomyelitis, consider a triple phase bone scan or MRI with and without contrast for further evaluation. Dictated by: Emanuel Ricketts M.D. on 03/09/2023 at 12:48 Approved by: Emanuel Ricketts M.D. on 03/09/2023 at 12:55
== END ==
PROVIDERS: Family Provider Family Medicine; PCP Family Medicine; Referring Provider Surgery; Visit Provider Surgery
DX: S91.301A Unspecified open wound, right foot, initial encounter (principal); M79.89 Other specified soft tissue disorders
CPT/HCPCS: 73630

== ENCOUNTER → 2023-03-09 12:51 | Outpatient (CLI) | payer MEDICARE, OTHER, SELFPAY | PROVIDERS: Family Provider Family Medicine; PCP Family Medicine; Referring Provider Physician Assistant Surgical; Visit Provider Surgery | DX: S91.301A Unspecified open wound, right foot, initial encounter (principal); M79.89 Other specified soft tissue disorders; E11.51 Type 2 diabetes mellitus with diabetic peripheral angiopathy without gangrene; L97.512 Non-pressure chronic ulcer of other part of right foot with fat layer exposed; R23.4 Changes in skin texture; L98.492 Non-pressure chronic ulcer of skin of other sites with fat layer exposed; R60.0 Localized edema; E11.22 Type 2 diabetes mellitus with diabetic chronic kidney disease; I12.9 Hypertensive chronic kidney disease with stage 1 through stage 4 chronic kidney disease, or unspecified chronic kidney disease; N18.9 Chronic kidney disease, unspecified; M19.90 Unspecified osteoarthritis, unspecified site; I25.119 Atherosclerotic heart disease of native coronary artery with unspecified angina pectoris; I48.91 Unspecified atrial fibrillation; J44.9 Chronic obstructive pulmonary disease, unspecified; Z95.820 Peripheral vascular angioplasty status with implants and grafts; Z95.818 Presence of other cardiac implants and grafts | CPT/HCPCS: 11042; 73630; 99212 ==

== ENCOUNTER → 2023-03-22 13:06 | Outpatient (CLI) | payer MEDICARE, OTHER, SELFPAY | PROVIDERS: Family Provider Family Medicine; PCP Family Medicine; Referring Provider Physician Assistant Surgical; Visit Provider Surgery | DX: I70.235 Atherosclerosis of native arteries of right leg with ulceration of other part of foot (principal); L97.512 Non-pressure chronic ulcer of other part of right foot with fat layer exposed; R60.0 Localized edema; L53.9 Erythematous condition, unspecified | CPT/HCPCS: 99213 ==

== ENCOUNTER → 2023-03-23 10:15 | Outpatient (CLI) | payer MEDICARE, OTHER, SELFPAY ==
[2023-03-23 19:16] LABS: Calcium 9.4 mg/dL (8.4-10.2); Carbon Dioxide 20 mmol/L (22-32); Chloride 106 mmol/L (98-107); Cholesterol 111 mg/dL (140-199); Estimated Glomerular Filt Rate 30 mL/min (>60); Glucose 182 mg/dL (80-110); HDL Cholesterol 35 mg/dL (40-60); HEMOLYSIS < 15 (0-50); LDL Cholesterol Calculated 65 mg/dL (<100); Potassium 4.7 mmol/L (3.4-5.1); Sodium 137 mmol/L (137-145); Triglycerides 56 mg/dL (35-150)
[2023-03-23 19:24] LABS: Add Manual Diff / Slide Review NO; Basophils Absolute Auto 100 /uL (0-100); Basophils Percent Auto 0.6 % (0-2); Eosinophils Absolute Auto 700 /uL (0-450); Eosinophils Percent Auto 7.3 % (2-4); Hematocrit 24.5 % (41-53); Hemoglobin 8.3 g/dL (13.5-17.5); Lymphocytes Absolute Auto 800 /uL (1100-4500); Lymphocytes Percent Auto 8.2 % (25-40); Mean Corpuscular HGB Conc 33.9 % (30-36); Mean Corpuscular Hemoglobin 31.8 PG (26-34); Mean Corpuscular Volume 93.8 fL (80-100); Monocytes Absolute Auto 1200 /uL (0-900); Monocytes Percent Auto 12.2 % (3-14); Neutrophils Absolute Auto 6900 /uL (1500-7000); Neutrophils Percent Auto 71.7 % (50-75); Platelet Count 231 X10^3/uL (150-400); Red Blood Cell Count 2.61 X10^6/uL (4.5-5.9); Red Cell Distribution Width 14.5 % (11.6-14.8); White Blood Cell Count 9.7 X10^3/uL (4.5-11.0)
[2023-03-23 19:32] LABS: BUN Creatinine Ratio 21.8 (6-22); Blood Urea Nitrogen 48 mg/dL (9-20)
[2023-03-23 19:34] LABS: Creatinine Urine Random 62.5 mg/dL
[2023-03-23 19:39] LABS: Microalbumi Creatinin Ratio Ur 52.8 ug/mg CR (<30); Microalbumin Urine Random 3.3 mg/dL (0-1.6)
[2023-03-23 19:57] LABS: Hemoglobin A1C% w Est Avg Glu 7.7 % (4.0-6.0)
== END ==
PROVIDERS: Family Provider Family Medicine; PCP Family Medicine; Visit Provider Family Medicine
DX: E11.9 Type 2 diabetes mellitus without complications (principal); N18.4 Chronic kidney disease, stage 4 (severe); D64.9 Anemia, unspecified; I25.10 Atherosclerotic heart disease of native coronary artery without angina pectoris; E78.2 Mixed hyperlipidemia; E11.59 Type 2 diabetes mellitus with other circulatory complications; I15.2 Hypertension secondary to endocrine disorders
CPT/HCPCS: 80048; 80061; 82043; 82570; 83036; 84443; 85025

== ENCOUNTER → 2023-04-05 11:49 | Outpatient (CLI) | payer MEDICARE, OTHER, SELFPAY | PROVIDERS: Family Provider Family Medicine; PCP Family Medicine; Referring Provider Physician Assistant Surgical; Visit Provider Surgery | DX: I70.235 Atherosclerosis of native arteries of right leg with ulceration of other part of foot (principal); L97.512 Non-pressure chronic ulcer of other part of right foot with fat layer exposed; R60.0 Localized edema; L84 Corns and callosities; L53.9 Erythematous condition, unspecified | CPT/HCPCS: 99211; 99213 ==

== ENCOUNTER → 2023-04-05 12:33 | Outpatient (CLI) | payer MEDICARE, OTHER, SELFPAY ==
[2023-04-05 13:06] LABS: Add Manual Diff / Slide Review NO; Basophils Absolute Auto 0 /uL (0-100); Basophils Percent Auto 0.2 % (0-2); Eosinophils Absolute Auto 0 /uL (0-450); Eosinophils Percent Auto 0.2 % (2-4); Hematocrit 25.4 % (41-53); Hemoglobin 8.4 g/dL (13.5-17.5); Lymphocytes Absolute Auto 1100 /uL (1100-4500); Lymphocytes Percent Auto 7.5 % (25-40); Mean Corpuscular HGB Conc 33.3 % (30-36); Mean Corpuscular Hemoglobin 31.6 PG (26-34); Mean Corpuscular Volume 94.9 fL (80-100); Monocytes Absolute Auto 400 /uL (0-900); Monocytes Percent Auto 2.5 % (3-14); Neutrophils Absolute Auto 13100 /uL (1500-7000); Neutrophils Percent Auto 89.6 % (50-75); Platelet Count 271 X10^3/uL (150-400); Red Blood Cell Count 2.67 X10^6/uL (4.5-5.9); Red Cell Distribution Width 14.6 % (11.6-14.8); White Blood Cell Count 14.6 X10^3/uL (4.5-11.0)
== END ==
PROVIDERS: Family Provider Family Medicine; PCP Family Medicine; Referring Provider Specialist; Visit Provider Specialist
DX: N18.5 Chronic kidney disease, stage 5 (principal)
CPT/HCPCS: 36415; 85025

== ENCOUNTER → 2023-04-13 12:01 | Outpatient (CLI) | payer MEDICARE, OTHER, SELFPAY | PROVIDERS: Family Provider Family Medicine; PCP Family Medicine; Referring Provider Physician Assistant Surgical; Visit Provider Surgery | DX: I70.235 Atherosclerosis of native arteries of right leg with ulceration of other part of foot (principal); L97.512 Non-pressure chronic ulcer of other part of right foot with fat layer exposed; R60.0 Localized edema; L84 Corns and callosities; L53.9 Erythematous condition, unspecified | CPT/HCPCS: 11042 ==

== ENCOUNTER → 2023-04-14 10:26 | Outpatient (CLI) | payer MEDICARE, OTHER, SELFPAY ==
[2023-04-14 21:17] LABS: Add Manual Diff / Slide Review NO; Basophils Absolute Auto 100 /uL (0-100); Basophils Percent Auto 0.8 % (0-2); Eosinophils Absolute Auto 400 /uL (0-450); Eosinophils Percent Auto 4.3 % (2-4); Hematocrit 25.4 % (41-53); Hemoglobin 8.7 g/dL (13.5-17.5); Lymphocytes Absolute Auto 800 /uL (1100-4500); Lymphocytes Percent Auto 9.8 % (25-40); Mean Corpuscular HGB Conc 34.4 % (30-36); Mean Corpuscular Hemoglobin 32.6 PG (26-34); Mean Corpuscular Volume 94.8 fL (80-100); Monocytes Absolute Auto 800 /uL (0-900); Neutrophils Absolute Auto 6200 /uL (1500-7000); Neutrophils Percent Auto 75.1 % (50-75); Platelet Count 152 X10^3/uL (150-400); Red Blood Cell Count 2.68 X10^6/uL (4.5-5.9); Red Cell Distribution Width 14.8 % (11.6-14.8); White Blood Cell Count 8.2 X10^3/uL (4.5-11.0)
[2023-04-14 21:28] LABS: BUN Creatinine Ratio 24.8 (6-22); Blood Urea Nitrogen 55 mg/dL (9-20); Calcium 8.6 mg/dL (8.4-10.2); Carbon Dioxide 27 mmol/L (22-32); Chloride 98 mmol/L (98-107); Estimated Glomerular Filt Rate 30 mL/min (>60); Glucose 315 mg/dL (80-110); HEMOLYSIS < 15 (0-50); Potassium 3.4 mmol/L (3.4-5.1); Sodium 135 mmol/L (137-145)
[2023-04-14 21:37] LABS: NT-proBNP (BNP-Adult 18+) 2180 pg/mL (<450)
[2023-04-15 19:05] LABS: Hemoglobin A1C% w Est Avg Glu 8.9 % (4.0-6.0)
== END ==
PROVIDERS: Family Provider Family Medicine; PCP Family Medicine; Visit Provider Family Medicine
DX: I50.9 Heart failure, unspecified (principal); E11.9 Type 2 diabetes mellitus without complications; R06.02 Shortness of breath; N18.4 Chronic kidney disease, stage 4 (severe)
CPT/HCPCS: 80048; 83036; 83880; 85025

== ENCOUNTER → 2023-04-26 10:13 | Outpatient (CLI) | payer MEDICARE, OTHER, SELFPAY | PROVIDERS: Family Provider Family Medicine; PCP Family Medicine; Visit Provider Physician Assistant | DX: R10.9 Unspecified abdominal pain (principal) | CPT/HCPCS: 87086 ==

== ENCOUNTER → 2023-05-12 11:20 | Outpatient (CLI) | payer MEDICARE, OTHER, SELFPAY | PROVIDERS: Family Provider Family Medicine; PCP Family Medicine; Referring Provider Physician Assistant Surgical; Visit Provider Surgery | DX: L97.512 Non-pressure chronic ulcer of other part of right foot with fat layer exposed (principal); I73.9 Peripheral vascular disease, unspecified; R60.0 Localized edema; L53.9 Erythematous condition, unspecified; E11.621 Type 2 diabetes mellitus with foot ulcer; N18.9 Chronic kidney disease, unspecified | CPT/HCPCS: 11042 ==

== ENCOUNTER → 2023-05-26 13:53 | Outpatient (CLI) | payer MEDICARE, OTHER, SELFPAY | PROVIDERS: Family Provider Family Medicine; PCP Family Medicine; Referring Provider Family Medicine; Visit Provider Surgery | DX: I73.9 Peripheral vascular disease, unspecified (principal); L97.512 Non-pressure chronic ulcer of other part of right foot with fat layer exposed; L97.516 Non-pressure chronic ulcer of other part of right foot with bone involvement without evidence of necrosis; E11.621 Type 2 diabetes mellitus with foot ulcer; R60.0 Localized edema; R23.4 Changes in skin texture; N18.9 Chronic kidney disease, unspecified; Z87.891 Personal history of nicotine dependence | CPT/HCPCS: 11042; 99212; 99213 ==

== ENCOUNTER → 2023-05-26 14:08 | Outpatient (CLI) | payer MEDICARE, OTHER, SELFPAY ==
--- NOTE | 2023-05-26 14:10 | DI.RAD.S_ITS ---
PROCEDURE: XR FOOT RT MIN 3V INDICATIONS: bone exposed on right 5th toe wound TECHNIQUE: 3 views of the foot were acquired. COMPARISON: [facility], CR, XR FOOT RT MIN 3V, 03/09/2023, 8:59. FINDINGS: Bones: There is osteopenia within the distal medial aspect of the 5th distal phalanx with possible cortical erosion. Osseous structures otherwise appear to be intact. Mild scattered degenerative changes throughout the forefoot. Small plantar calcaneal enthesophyte. Soft tissues: Arteriovascular calcifications are present and. Soft tissue edema is seen throughout the forefoot. There is abnormal skin contour within the 5th toe. Soft tissue calcifications are partially included in the lower leg overlying the distal fibular shaft on oblique view only. IMPRESSION: Osteopenia and suspected cortical erosion at the medial aspect of the 5th distal phalanx suspicious for osteomyelitis. MRI could be performed for further evaluation if indicated clinically. Approved by: Juarez Plata M.D. on 05/26/2023 at 17:02
[2023-05-26 15:25] LABS: Hemoglobin A1C% w Est Avg Glu 8.1 % (4.0-6.0)
[2023-05-26 15:42] LABS: BUN Creatinine Ratio 17.7 (6-22); Blood Urea Nitrogen 45 mg/dL (9-20); Estimated Glomerular Filt Rate 25 mL/min (>60)
== END ==
PROVIDERS: Family Provider Family Medicine; PCP Family Medicine; Referring Provider Surgery; Visit Provider Surgery
DX: E11.22 Type 2 diabetes mellitus with diabetic chronic kidney disease (principal); I12.9 Hypertensive chronic kidney disease with stage 1 through stage 4 chronic kidney disease, or unspecified chronic kidney disease; N18.4 Chronic kidney disease, stage 4 (severe); E11.621 Type 2 diabetes mellitus with foot ulcer; L97.516 Non-pressure chronic ulcer of other part of right foot with bone involvement without evidence of necrosis; L97.512 Non-pressure chronic ulcer of other part of right foot with fat layer exposed; E11.59 Type 2 diabetes mellitus with other circulatory complications; M85.871 Other specified disorders of bone density and structure, right ankle and foot; I25.10 Atherosclerotic heart disease of native coronary artery without angina pectoris; D64.9 Anemia, unspecified; I73.9 Peripheral vascular disease, unspecified; R60.0 Localized edema; Z87.891 Personal history of nicotine dependence
CPT/HCPCS: 11042; 36415; 73630; 82565; 83036; 84520; 99212

== ENCOUNTER → 2023-06-02 11:14 | Outpatient (CLI) | payer MEDICARE, OTHER, SELFPAY | PROVIDERS: Family Provider Family Medicine; PCP Family Medicine; Referring Provider Physician Assistant Surgical; Visit Provider Surgery | DX: I73.9 Peripheral vascular disease, unspecified (principal); E11.621 Type 2 diabetes mellitus with foot ulcer; S91.301D Unspecified open wound, right foot, subsequent encounter; S91.101D Unspecified open wound of right great toe without damage to nail, subsequent encounter; S91.109D Unspecified open wound of unspecified toe(s) without damage to nail, subsequent encounter; L97.512 Non-pressure chronic ulcer of other part of right foot with fat layer exposed; L97.516 Non-pressure chronic ulcer of other part of right foot with bone involvement without evidence of necrosis; L53.9 Erythematous condition, unspecified; R23.4 Changes in skin texture; R60.0 Localized edema; N18.9 Chronic kidney disease, unspecified; Z79.2 Long term (current) use of antibiotics; R20.8 Other disturbances of skin sensation | CPT/HCPCS: 11042; 87070; 87075; 87077; 87147; 87186; 87205; 99214 ==

== ENCOUNTER → 2023-06-07 14:51 | Outpatient (CLI) | payer MEDICARE, OTHER, SELFPAY | LOC: WC 15:00 | PROVIDERS: Family Provider Family Medicine; PCP Family Medicine; Referring Provider Physician Assistant Surgical; Visit Provider Surgery | DX: E11.621 Type 2 diabetes mellitus with foot ulcer (principal); L97.512 Non-pressure chronic ulcer of other part of right foot with fat layer exposed; I73.9 Peripheral vascular disease, unspecified; R23.4 Changes in skin texture | CPT/HCPCS: 11042 ==

== ENCOUNTER → 2023-06-09 11:25 | Outpatient (CLI) | payer MEDICARE, OTHER, SELFPAY ==
[2023-06-09 20:39] LABS: Add Manual Diff / Slide Review NO; Basophils Absolute Auto 100 /uL (0-100); Basophils Percent Auto 0.6 % (0-2); Eosinophils Absolute Auto 1000 /uL (0-450); Eosinophils Percent Auto 11.2 % (2-4); Hematocrit 26.3 % (41-53); Hemoglobin 8.8 g/dL (13.5-17.5); Lymphocytes Absolute Auto 1000 /uL (1100-4500); Lymphocytes Percent Auto 11.1 % (25-40); Mean Corpuscular HGB Conc 33.6 % (30-36); Mean Corpuscular Hemoglobin 31.3 PG (26-34); Mean Corpuscular Volume 93.3 fL (80-100); Monocytes Absolute Auto 1000 /uL (0-900); Monocytes Percent Auto 11.3 % (3-14); Neutrophils Absolute Auto 5900 /uL (1500-7000); Neutrophils Percent Auto 65.8 % (50-75); Platelet Count 131 X10^3/uL (150-400); Red Blood Cell Count 2.82 X10^6/uL (4.5-5.9); Red Cell Distribution Width 14.7 % (11.6-14.8)
[2023-06-09 20:56] LABS: BUN Creatinine Ratio 19.5 (6-22); Blood Urea Nitrogen 32 mg/dL (9-20); Calcium 8.7 mg/dL (8.4-10.2); Carbon Dioxide 23 mmol/L (22-32); Chloride 108 mmol/L (98-107); Estimated Glomerular Filt Rate 42 mL/min (>60); Glucose 117 mg/dL (80-110); HEMOLYSIS < 15 (0-50); Potassium 4.1 mmol/L (3.4-5.1); Sodium 138 mmol/L (137-145)
[2023-06-09 21:09] LABS: Hemoglobin A1C% w Est Avg Glu 7.7 % (4.0-6.0)
== END ==
PROVIDERS: Family Provider Family Medicine; PCP Family Medicine; Visit Provider Family Medicine
DX: N18.4 Chronic kidney disease, stage 4 (severe) (principal); E11.9 Type 2 diabetes mellitus without complications; E78.2 Mixed hyperlipidemia; E11.59 Type 2 diabetes mellitus with other circulatory complications; I15.2 Hypertension secondary to endocrine disorders
CPT/HCPCS: 80048; 83036; 85025

== ENCOUNTER → 2023-06-14 14:50 | Outpatient (CLI) | payer MEDICARE, OTHER, SELFPAY | PROVIDERS: Family Provider Family Medicine; PCP Family Medicine; Referring Provider Physician Assistant Surgical; Visit Provider Surgery | DX: I73.9 Peripheral vascular disease, unspecified (principal); L97.512 Non-pressure chronic ulcer of other part of right foot with fat layer exposed; E11.621 Type 2 diabetes mellitus with foot ulcer; L97.516 Non-pressure chronic ulcer of other part of right foot with bone involvement without evidence of necrosis; R60.0 Localized edema; R23.4 Changes in skin texture; N18.9 Chronic kidney disease, unspecified | CPT/HCPCS: 11042 ==

== ENCOUNTER → 2023-06-27 10:10 | Outpatient (CLI) | payer MEDICARE, OTHER, SELFPAY ==
[2023-06-27 20:41] LABS: Alanine Aminotransferase 15 IU/L (<50); Albumin 3.4 g/dL (3.5-5.0); Albumin Globulin Ratio 1.1 (1.0-2.8); Alkaline Phosphatase 105 U/L (38-126); Aspartate Aminotransferase 20 IU/L (17-59); BUN Creatinine Ratio 22.3 (6-22); Bilirubin Total 0.6 mg/dL (0.2-1.3); Blood Urea Nitrogen 40 mg/dL (9-20); Calcium 9.3 mg/dL (8.4-10.2); Carbon Dioxide 23 mmol/L (22-32); Chloride 109 mmol/L (98-107); Cholesterol 109 mg/dL (140-199); Estimated Glomerular Filt Rate 38 mL/min (>60); Globulin 3.1 g/dL (1.7-4.1); Glucose 119 mg/dL (80-110); HDL Cholesterol 47 mg/dL (40-60); HEMOLYSIS < 15 (0-50); LDL Cholesterol Calculated 51 mg/dL (<100); Potassium 4.7 mmol/L (3.4-5.1); Sodium 140 mmol/L (137-145); Total Protein 6.5 g/dL (6.3-8.2); Triglycerides 57 mg/dL (35-150)
[2023-06-27 20:46] LABS: Add Manual Diff / Slide Review NO; Basophils Absolute Auto 100 /uL (0-100); Basophils Percent Auto 1.1 % (0-2); Eosinophils Absolute Auto 300 /uL (0-450); Eosinophils Percent Auto 4.9 % (2-4); Hemoglobin 9.3 g/dL (13.5-17.5); Lymphocytes Absolute Auto 1100 /uL (1100-4500); Lymphocytes Percent Auto 16.5 % (25-40); Mean Corpuscular HGB Conc 33.4 % (30-36); Mean Corpuscular Hemoglobin 31.1 PG (26-34); Mean Corpuscular Volume 93.1 fL (80-100); Monocytes Absolute Auto 500 /uL (0-900); Monocytes Percent Auto 8.3 % (3-14); Neutrophils Absolute Auto 4400 /uL (1500-7000); Neutrophils Percent Auto 69.2 % (50-75); Platelet Count 174 X10^3/uL (150-400); Red Cell Distribution Width 15.1 % (11.6-14.8); White Blood Cell Count 6.4 X10^3/uL (4.5-11.0)
[2023-06-27 20:48] LABS: Hemoglobin A1C% w Est Avg Glu 6.7 % (4.0-6.0)
[2023-06-27 20:54] LABS: Reticulocyte Count, Percent 1.1 % (0.9-2.6)
[2023-06-27 21:13] LABS: Creatinine Urine Random 73.9 mg/dL
[2023-06-27 21:30] LABS: Microalbumi Creatinin Ratio Ur 18.9 ug/mg CR (<30); Microalbumin Urine Random 1.4 mg/dL (0-1.6)
== END ==
PROVIDERS: Family Provider Family Medicine; PCP Family Medicine; Visit Provider Family Medicine
DX: E11.9 Type 2 diabetes mellitus without complications (principal); N18.6 End stage renal disease; D63.1 Anemia in chronic kidney disease; Z99.2 Dependence on renal dialysis; N18.4 Chronic kidney disease, stage 4 (severe); E11.59 Type 2 diabetes mellitus with other circulatory complications; I15.2 Hypertension secondary to endocrine disorders
CPT/HCPCS: 80053; 80061; 82043; 82570; 83036; 85025; 85045

== ENCOUNTER → 2023-06-28 10:50 | Outpatient (CLI) | payer MEDICARE, OTHER, SELFPAY | LOC: WC 10:51 | PROVIDERS: Family Provider Family Medicine; PCP Family Medicine; Referring Provider Physician Assistant Surgical; Visit Provider Surgery | DX: L97.512 Non-pressure chronic ulcer of other part of right foot with fat layer exposed (principal); I73.9 Peripheral vascular disease, unspecified; E11.621 Type 2 diabetes mellitus with foot ulcer; L97.516 Non-pressure chronic ulcer of other part of right foot with bone involvement without evidence of necrosis; I96 Gangrene, not elsewhere classified; R60.0 Localized edema; R23.4 Changes in skin texture; N18.9 Chronic kidney disease, unspecified | CPT/HCPCS: 11042; 99213 ==

== ENCOUNTER → 2023-07-12 11:04 | Outpatient (CLI) | payer MEDICARE, OTHER, SELFPAY | PROVIDERS: Family Provider Family Medicine; PCP Family Medicine; Referring Provider Physician Assistant Surgical; Visit Provider Surgery | DX: I73.9 Peripheral vascular disease, unspecified (principal); L97.512 Non-pressure chronic ulcer of other part of right foot with fat layer exposed; E11.621 Type 2 diabetes mellitus with foot ulcer; L97.516 Non-pressure chronic ulcer of other part of right foot with bone involvement without evidence of necrosis; R60.0 Localized edema; R23.4 Changes in skin texture; N18.9 Chronic kidney disease, unspecified | CPT/HCPCS: 11042; 97597 ==

== ENCOUNTER → 2023-07-26 10:58 | Outpatient (CLI) | payer MEDICARE, OTHER, SELFPAY | LOC: WC 10:59 | PROVIDERS: Family Provider Family Medicine; PCP Family Medicine; Referring Provider Physician Assistant Surgical; Visit Provider Surgery | DX: E11.621 Type 2 diabetes mellitus with foot ulcer (principal); L97.512 Non-pressure chronic ulcer of other part of right foot with fat layer exposed; L97.516 Non-pressure chronic ulcer of other part of right foot with bone involvement without evidence of necrosis; I73.9 Peripheral vascular disease, unspecified; R60.0 Localized edema; R23.4 Changes in skin texture | CPT/HCPCS: 11042; 99212; 99213 ==

== ENCOUNTER → 2023-08-11 14:50 | Outpatient (CLI) | payer MEDICARE, OTHER, SELFPAY | LOC: WC 14:51 | PROVIDERS: Family Provider Family Medicine; PCP Family Medicine; Referring Provider Physician Assistant Surgical; Visit Provider Surgery | DX: L97.512 Non-pressure chronic ulcer of other part of right foot with fat layer exposed (principal); L97.516 Non-pressure chronic ulcer of other part of right foot with bone involvement without evidence of necrosis; I73.9 Peripheral vascular disease, unspecified; E11.621 Type 2 diabetes mellitus with foot ulcer; R60.0 Localized edema; R23.4 Changes in skin texture | CPT/HCPCS: 99213 ==

== ENCOUNTER → 2023-08-17 15:03 | Outpatient (CLI) | payer MEDICARE, OTHER, SELFPAY ==
--- NOTE | 2023-08-17 15:04 | DI.US.S_ITS ---
PROCEDURE: US ABDOMEN COMPLETE INDICATIONS: pain around umbilical hernia TECHNIQUE: Real-time scanning was performed of the abdominal and retroperitoneal organs, with image documentation. COMPARISON: [facility], US, US ABDOMEN COMPLETE, 06/05/2019, 9:27. FINDINGS: Liver: Liver is normal in size and homogeneous in echotexture. Gallbladder: No gallstones identified. Normal gallbladder wall. No pericholecystic fluid. Negative sonographic Crawford sign. Biliary ducts: Intrahepatic bile ducts are non-dilated. Extrahepatic bile duct caliber measures 5.5 mm. Normal is 6-7 mm or less in diameter, or 10 mm or less post-cholecystectomy. Pancreas: Not well seen Spleen: Spleen is normal in size and homogeneous in echotexture. Kidneys: Kidneys are normal in size and echotexture. Right kidney measures 10.4 cm long; left kidney measures 10 cm long. No hydronephrosis or nephrolithiasis. No solid masses. Aorta: Visualized aorta is normal in caliber at less than 3 cm. Iliacs: Proximal common iliac arteries are normal in caliber at less than 2.5 cm. IVC: Intrahepatic inferior vena cava is patent. Miscellaneous: No free abdominal fluid. Reducible fat containing umbilical hernia. IMPRESSION: 1. Increased hepatic echogenicity noted possibly related to hepatic steatosis but other sources of hepatocellular disease cannot be excluded. Recommend clinical correlation. 2. Reducible umbilical hernia. Dictated by: Jitendra Edgar [facility] Interpreted: Porsche Meehan MD on 08/17/2023 at 16:36 Transcribed by: CLARISA on 08/18/2023 at 17:00 Approved by: Porsche Meehan M.D. on 08/22/2023 at 9:56
== END ==
PROVIDERS: Family Provider Family Medicine; PCP Family Medicine; Referring Provider Physician Assistant Medical; Visit Provider Physician Assistant Medical
DX: K42.9 Umbilical hernia without obstruction or gangrene (principal); R10.9 Unspecified abdominal pain
CPT/HCPCS: 76700

== ENCOUNTER → 2023-10-24 08:24 | Outpatient (CLI) | payer MEDICARE, OTHER, SELFPAY ==
[2023-10-24 20:04] LABS: Add Manual Diff / Slide Review NO; Alanine Aminotransferase 20 IU/L (<50); Albumin 3.5 g/dL (3.5-5.0); Albumin Globulin Ratio 1.2 (1.0-2.8); Alkaline Phosphatase 87 U/L (38-126); Aspartate Aminotransferase 21 IU/L (17-59); BUN Creatinine Ratio 20.8 (6-22); Basophils Absolute Auto 100 /uL (0-100); Basophils Percent Auto 1.3 % (0-2); Bilirubin Total 0.5 mg/dL (0.2-1.3); Blood Urea Nitrogen 38 mg/dL (9-20); Calcium 8.8 mg/dL (8.4-10.2); Carbon Dioxide 24 mmol/L (22-32); Chloride 113 mmol/L (98-107); Cholesterol 95 mg/dL (140-199); Eosinophils Absolute Auto 500 /uL (0-450); Eosinophils Percent Auto 7.4 % (2-4); Estimated Glomerular Filt Rate 37 mL/min (>60); Globulin 2.9 g/dL (1.7-4.1); Glucose 115 mg/dL (80-110); HDL Cholesterol 39 mg/dL (40-60); HEMOLYSIS < 15 (0-50); Hematocrit 27.3 % (41-53); Hemoglobin 9.3 g/dL (13.5-17.5); LDL Cholesterol Calculated 41 mg/dL (<100); Lymphocytes Absolute Auto 1200 /uL (1100-4500); Lymphocytes Percent Auto 17.4 % (25-40); Mean Corpuscular Hemoglobin 31.8 PG (26-34); Mean Corpuscular Volume 93.5 fL (80-100); Monocytes Absolute Auto 700 /uL (0-900); Neutrophils Absolute Auto 4300 /uL (1500-7000); Neutrophils Percent Auto 63.9 % (50-75); Platelet Count 142 X10^3/uL (150-400); Potassium 4.3 mmol/L (3.4-5.1); Red Blood Cell Count 2.92 X10^6/uL (4.5-5.9); Red Cell Distribution Width 13.9 % (11.6-14.8); Sodium 140 mmol/L (137-145); Total Protein 6.4 g/dL (6.3-8.2); Triglycerides 74 mg/dL (35-150); White Blood Cell Count 6.7 X10^3/uL (4.5-11.0)
[2023-10-24 20:10] LABS: Hemoglobin A1C% w Est Avg Glu 6.2 % (4.0-6.0)
[2023-10-24 20:11] LABS: Creatinine Urine Random 38.23 mg/dL
[2023-10-24 20:19] LABS: Microalbumin Urine Random 0.9 mg/dL (0-1.6)
== END ==
PROVIDERS: Family Provider Family Medicine; PCP Family Medicine; Referring Provider Family Medicine; Visit Provider Family Medicine
DX: I50.9 Heart failure, unspecified (principal); E11.22 Type 2 diabetes mellitus with diabetic chronic kidney disease; N18.4 Chronic kidney disease, stage 4 (severe); E11.59 Type 2 diabetes mellitus with other circulatory complications; E78.2 Mixed hyperlipidemia; I25.10 Atherosclerotic heart disease of native coronary artery without angina pectoris; D64.9 Anemia, unspecified; I73.9 Peripheral vascular disease, unspecified; I15.2 Hypertension secondary to endocrine disorders; I48.20 Chronic atrial fibrillation, unspecified
CPT/HCPCS: 80053; 80061; 82043; 82570; 83036; 85025

== ENCOUNTER → 2023-11-03 12:09 | Outpatient (CLI) | payer MEDICARE, OTHER, SELFPAY | PROVIDERS: Family Provider Family Medicine; PCP Family Medicine; Visit Provider Physician Assistant Medical | DX: T87.43 Infection of amputation stump, right lower extremity (principal) | CPT/HCPCS: 87070; 87075; 87205 ==

== ENCOUNTER → 2023-11-22 13:01 | Outpatient (CLI) | payer MEDICARE, OTHER, SELFPAY ==
--- NOTE | 2023-11-22 13:03 | DI.CT.S_ITS ---
PROCEDURE: CT ABDOMEN PELVIS W CON INDICATIONS: LLQ pain, emesis TECHNIQUE: After the administration of intravenous contrast, axial sections acquired from the lung bases to the pubic symphysis. Coronal and sagittal reformats were performed. For radiation dose reduction, the following was used: automated exposure control, adjustment of mA and/or kV according to patient size. COMPARISON: None. FINDINGS: Lower thorax: Heart size is enlarged. Right basilar pleural based atelectasis and or consolidation/infiltrate. Left lung bases clear.. Liver: Normal in size and attenuation. No contour deformity present. Biliary system: No calcified cholelithiasis or pericholecystic inflammation. No intra or extrahepatic bile duct dilatation. Pancreas: Unremarkable without mass or inflammation evident. Spleen: Normal in size and density. Adrenals: Normal morphology and density. Reproductive system: Unremarkable as visualized. Urinary system: Normal renal size and attenuation. No renal calculi, hydronephrosis, or solid mass present. Urinary bladder is nondistended resulting in bladder wall thickening Gastrointestinal system: The bowel is unremarkable without evidence of bowel obstruction or inflammation. The stomach appears unremarkable. Moderate fecal debris noted throughout the colon Appendix: Normal appendix identified. No evidence of appendicitis. Peritoneal spaces: No mesenteric or retroperitoneal adenopathy. No free air. No free fluid. Vasculature: Aortic atherosclerotic vascular calcification noted without evidence of aneurysm. Abdominal wall: Left inguinal hernia(s) contain fat without bowel involvement. Musculoskeletal: Normal bone mineralization. Degenerative disc disease and arthropathy noted in lower lumbar spine. No acute fractures. IMPRESSION: No acute CT findings in the abdomen and pelvis. Moderate fecal debris throughout the colon. No evidence of diverticulitis. Dense atherosclerotic vascular calcification. Additional chronic findings as above. Approved by: Jayjay May M.D. on 11/22/2023 at 16:47
== END ==
PROVIDERS: Family Provider Family Medicine; PCP Family Medicine; Referring Provider Family Medicine; Visit Provider Family Medicine
DX: K40.90 Unilateral inguinal hernia, without obstruction or gangrene, not specified as recurrent (principal); I70.0 Atherosclerosis of aorta; R10.32 Left lower quadrant pain; R11.10 Vomiting, unspecified; I51.7 Cardiomegaly; M51.36 Other intervertebral disc degeneration, lumbar region; M47.816 Spondylosis without myelopathy or radiculopathy, lumbar region
CPT/HCPCS: 74177; Q9967

== ENCOUNTER → 2023-12-12 09:40 | Outpatient (CLI) | payer MEDICARE, OTHER, SELFPAY ==
--- NOTE | 2023-12-12 18:01 | DI.NM.S_ITS ---
DATE OF SERVICE: 12/12/2023 NUCLEAR CARDIOLOGY MYOCARDIAL PERFUSION STUDY PROCEDURE: Pharmacologic vasodilator stress and rest myocardial perfusion imaging with gating to assess ejection fraction and regional wall motion. ORDERING PROVIDER: Dr. Irving Dominguez. INDICATIONS: The patient is a 78-year-old male with chronic atrial fibrillation and renal insufficiency with atypical chest discomfort. PHARMACOLOGIC STRESS: Per protocol, 0.4 mg of regadenoson was infused with a normal hemodynamic response. He had no chest discomfort or other anginal symptoms. His resting ECG showed atrial fibrillation with a controlled ventricular response and normal ST segments. With stress, there were no significant ST-segment shifts or additional arrhythmias. Per protocol, 26.5 millicuries of technetium-99m Myoview was injected and was imaged 15 minutes later using a gated acquisition SPECT protocol. Earlier in the day while at rest, he had been injected with 10.3 millicuries of technetium-99m Myoview was imaged 15 minutes later, again using a gated SPECT acquisition protocol. FINDINGS: 1. Raw data. There is fairly good myocardial tracer uptake. The lung/heart ratio is normal at 0.32 with a normal TID ratio of 0.77. 2. Quantitated gated SPECT: Post-stress ejection fraction is estimated at 77% without any focal wall motion abnormality. The resting ejection fraction is estimated at 70% with a mildly increased resting end- diastolic volume of 127 mL. 3. Myocardial perfusion imaging: Post-stress supine images show a fairly uniform pattern of tracer activity without any significant perfusion defects, supported by normal perfusion imaging in the prone position. The resting images show similar perfusion pattern without any clear areas of improvement. IMPRESSION: 1. Normal myocardial perfusion study. 2. No significant perfusion defects to suggest myocardial ischemia or previous myocardial infarction. 3. Normal left ventricular systolic function without any focal wall motion abnormality but mildly increased left ventricular volumes. 4. No angina or ECG evidence of ischemia with pharmacologic vasodilator stress. 5. Compared to the previous myocardial perfusion study of 04/23/2020, there has been no significant change. The previous resting end-diastolic volume was 115 mL with similar ejection fractions and today's perfusion images appear unchanged from the previous study. Brian Helton - LENCHO/ebony/DEMARIO doc#: [id number]/job#: [id number] dd: 12/12/2023 16:58:00 dt: 12/12/2023 17:21:00 DICTATING MD/COPIES TO: Irving Mcmillan MD; Irving Dominguez MD COPIES MNE: SIMBA;
== END ==
PROVIDERS: Family Provider Family Medicine; PCP Family Medicine; Referring Provider Family Medicine; Visit Provider Family Medicine
DX: R07.9 Chest pain, unspecified (principal)
CPT/HCPCS: 78452; 93017; A9502; J2785

== ENCOUNTER → 2024-07-17 10:37 | Outpatient (CLI) | payer MEDICARE, OTHER, SELFPAY | PROVIDERS: PCP Family Medicine; Referring Provider Family Medicine; Visit Provider Surgery | DX: E11.622 Type 2 diabetes mellitus with other skin ulcer (principal); L97.812 Non-pressure chronic ulcer of other part of right lower leg with fat layer exposed; I73.9 Peripheral vascular disease, unspecified; L53.8 Other specified erythematous conditions | CPT/HCPCS: 11042; 87070; 87075; 87077; 87147; 87186; 87205; 99213; 99214 ==

== ENCOUNTER → 2024-07-17 11:46 | Outpatient (CLI) | payer MEDICARE, OTHER, SELFPAY ==
--- NOTE | 2024-07-17 11:48 | DI.RAD.S_ITS ---
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 COMPARISON: None. FINDINGS: Bones: BKA amputation changes are typical. No plain film evidence of osteomyelitis. Joints: The tibialfemoral and patellofemoral joints show mild degeneration. Soft tissues: Normal IMPRESSION: Typical BK amputation changes. No plain film evidence of osteomyelitis. Dictated by: Apolinar Desouza M.D. on 07/18/2024 at 7:42 Approved by: Apolinar Desouza M.D. on 07/18/2024 at 7:43
== END ==
PROVIDERS: PCP Family Medicine; Referring Provider Surgery; Visit Provider Surgery
DX: S81.801A Unspecified open wound, right lower leg, initial encounter (principal); Z89.511 Acquired absence of right leg below knee
CPT/HCPCS: 73590; 87070; 87075; 87205

== ENCOUNTER → 2024-07-24 13:29 | Outpatient (CLI) | payer MEDICARE, OTHER, SELFPAY ==
--- NOTE | 2024-07-24 | OV.WND_ITS ---
PROGRESS NOTE DETAILS PATIENT NAME: ESVIN ROWLEY PATIENT NUMBER: [id number] CLINICIAN: AYDEN POPE RN PATIENT DATE OF : 1945 PHYSICIAN / REDUCING SALON ATTENDANT: AICHA ROMO PATIENT SUBJECTIVE CHIEF COMPLAINT THIS INFORMATION WAS OBTAINED FROM THE PATIENT. THE WOUND IS DOING OKAY I THINK GENERAL NOTES RIGHT LEG DIABETIC ULCER. ALLERGIES PENICILLIN (SEVERITY: MODERATE, REACTION: HIVES, SWELLINING, BLISTERS), BACTRIM (SEVERITY: SEVERE, REACTION: KIDNEY FAILURE) HPI THIS INFORMATION WAS OBTAINED FROM THE PATIENT. THE FOLLOWING HPI ELEMENTS WERE DOCUMENTED FOR THE PATIENT'S WOUND: LOCATION: R BKA INCISION DURATION: 08/23/23 CONTEXT: SURGICAL/DIABETIC ASSOCIATED SIGNS AND SYMPTOMS: NONE THE PATIENT IS A 79 YEAR OLD MALE WITH ARTHRITIS, CAD, CKD, ATRIAL FIBRILLATION, TYPE II DIABETES MELLITUS, AND PAD WHO RETURNS TODAY FOR FOLLOW UP OF SURGICAL/DIABETIC WOUND ON RIGHT BKA INCISION. THE PATIENT UNDERWENT A RIGHT BELOW-KNEE AMPUTATION AUGUST 23, 2023 BECAUSE OF OSTEOMYELITIS RIGHT FOOT AND REPORTS THAT HE HAS HAD AN OPEN WOUND EVER SINCE HIS SURGERY. THE WOUND GOT LARGER WHEN HE STARTED USING A PROSTHESIS. HE WAS SEEN FOR THE 1ST TIME LAST WEEK AND STARTED ON DRESSING CHANGES WITH HYDROFERA BLUE. THE PATIENT REPORTS HAVING SOME MILD DISCOMFORT AND SOME SLIGHT DRAINAGE BUT HAS NOT NOTED ANY ERYTHEMA NOR HAS HE HAD ANY FEVER OR CHILLS. HE IS NOT CURRENTLY USING THE PROSTHESIS. THE PATIENT REPORTS A GOOD APPETITE AND DENIES HAVING ANY OTHER RECENT CHANGES IN HIS OVERALL HEALTH. HE DOES NOT ROUTINELY MEASURE HIS BLOOD SUGARS. HIS LAST HEMOGLOBIN A1C WAS 6.2 ON OCTOBER 24, 2023. THE PATIENT IS ON OZEMPIC AND ELIQUIS. HE DOES NOT SMOKE CIGARETTES. ON EXAM TODAY THE ULCER HAS UNCHANGED, NO SIGN OF INFECTION. LABS: 07/17/24: CULTURE GREW MRSA. 07/17/24: X-RAY RIGHT BKA: TYPICAL BK AMPUTATION CHANGES. NO PLAIN FILM EVIDENCE OF OSTEOMYELITIS. 10/24/23: HEMOGLOBIN A1C 6.2 MEDICAL HISTORY THIS INFORMATION WAS OBTAINED FROM THE CHART, PATIENT. PATIENT HAS A MEDICAL HISTORY OF: ESVIN ROWLEY [id number] 1945 CORONARY ARTERY DISEASE (CAD) CHRONIC OBSTRUCTIVE PULMONARY DISEASE (COPD) TYPE II DIABETES ANEMIA PAD ATRIAL FIBRILLATION PANIOBULAR EMPHYSEMA ANGINA HYPERTENSION BRONCHITIS KIDNEY FAILURE - 11/23/2022 GASTRO ESOPH. REFLUX DISEASE (GERD) OSTEOMYELITIS HYPERLIPIDEMIA PERIPHERAL VASCULAR DISEASE ADDITIONAL INFORMATION DOES PATIENT HAVE A HISTORY OF CANCER? YES? COMPLETE ALL QUESTIONS.: NO SURGICAL HISTORY THIS INFORMATION WAS OBTAINED FROM THE CHART, PATIENT. PATIENT HAS A SURGICAL HISTORY OF: LEFT SFA ANGIO GRAM- 08/09/2018 CAD- 06/12/2018 HISTORY OF TONSILECTOMY- CARDIAC STENTS- RIGHT LOWER EXTREMITY ANGIOGRAM AND DRUG COATED BALLOON ANGIOPLASTY- ANGIOGRAM OF RLE W/ STENTING OF THE MID SFA- 02/23/2023 RIGHT BKA- 08/23/2023 OBJECTIVE VITALS HEIGHT/LENGTH: 68 IN (172.72 CM), WEIGHT: 209.2 LBS (95.09 KGS), BMI: 31.8, TEMPERATURE: 99.2 ?F (37.33 ?C), PULSE: 69 BPM, RESPIRATORY RATE: 18 BREATHS/MIN, BLOOD PRESSURE: 138/75 MMHG, PULSE OXIMETRY: 97 %. GENERAL NOTES PT DOES NOT CHECK GLUCOSE DAILY. PHYSICAL EXAM CONSTITUTIONAL: VITAL SIGNS REVIEWED AND NOTED. WELL DEVELOPED, WELL NOURISHED, AND IN NO ACUTE DISTRESS. ALERT AND ORIENTED X3. RESPIRATORY: EVEN RESPIRATIONS WITHOUT USE OF ACCESSORY MUSCLES. NO INTERCOASTAL RETRACTIONS NOTED. EVEN AND NON LABORED RESPIRATION. INTEGUMENTARY (HAIR, SKIN): RIGHT BELOW-KNEE AMPUTATION, NO ERYTHEMA. NO SWELLING OR TENDERNESS. SEE WOUND ASSESSMENT. SKIN WARM AND DRY. NO RASHES. ESVIN ROWLEY [id number] 1945 NEUROLOGICAL: SENSATION: SYMMETRIC FUNCTION BY INFORMAL OBSERVATION. PSYCHIATRIC: ORIENTATION TO TIME, PLACE AND PERSON: NORMAL AFFECT WITH NORMAL THOUGHT PATTERN. ADDITIONAL INFORMATION THE PATIENT'S POTENTIAL TO HEAL IS: FAIR. WOUND ASSESSMENT(S) WOUND #10 RIGHT LEG IS A CHRONIC GONSALVES GRADE 2 DIABETIC ULCER ACQUIRED ON 08/23/2023 AND HAS RECEIVED A STATUS OF NOT HEALED. INITIAL WOUND ENCOUNTER MEASUREMENTS ARE 0.3CM LENGTH X 0.6CM WIDTH X 0.3 CM DEPTH, WITH AN AREA OF 0.18 SQ CM AND A VOLUME OF 0.054 CUBIC CM.INITIAL WOUND ENCOUNTER PREVIOUS MEASUREMENTS FROM 07/17/2024 ARE 0.4CM LENGTH X 0.7CM WIDTH X 0.2CM DEPTH, WITH AN AREA OF 0.28 SQ CM AND A VOLUME OF 0.056 CUBIC CM. ADIPOSE IS EXPOSED. NO TUNNELING HAS BEEN NOTED. NO SINUS TRACT HAS BEEN NOTED. NO UNDERMINING HAS BEEN NOTED. THERE IS A SMALL AMOUNT OF SEROSANGUINEOUS DRAINAGE NOTED WHICH HAS NO ODOR. THE PATIENT REPORTS A WOUND PAIN OF LEVEL 5/10. THE WOUND MARGIN IS UNATTACHED WOUND BED HAS YES, PINK, FIRM, GRANULATION, YES SLOUGH, NO ESCHAR, NO EPITHELIALIZATION. THE PERIWOUND SKIN EXHIBITED ERYTHEMA. THE PERIWOUND SKIN DID NOT EXHIBIT BRAWNY INDURATION, EDEMA, EXCORIATION, INDURATION, CALLUS, CREPITUS, FLUCTUANCE, RASH, MACERATION, ATROPHIE NEGIN, CYANOSIS, ECCHYMOSIS, HEMOSIDEROSIS, PALLOR AND RUBOR. THE PERIWOUND SKIN WAS NOT FRIABLE, DRY/SCALY AND MOIST. THE TEMPERATURE OF THE PERIWOUND SKIN IS WNL. PERIWOUND SKIN DOES NOT EXHIBIT SIGNS OR SYMPTOMS OF INFECTION. LOCAL PULSE IS PALPABLE. ADDITIONAL INFORMATION OTHER DEVITALIZED TISSUE PRESENT: BIOFILM ASSESSMENT ACTIVE PROBLEMS ICD-10 (ENCOUNTER DIAGNOSIS) L97.812 - NON-PRESSURE CHRONIC ULCER OF OTHER PART OF RIGHT LOWER LEG WITH FAT LAYER EXPOSED (ENCOUNTER DIAGNOSIS) E11.622 - TYPE 2 DIABETES MELLITUS WITH OTHER SKIN ULCER (ENCOUNTER DIAGNOSIS) I73.9 - PERIPHERAL VASCULAR DISEASE, UNSPECIFIED GENERAL NOTES ULCER RIGHT BKA STABLE, NO SIGN OF INFECTION THE FOLLOWING FACTORS HAVE BEEN IDENTIFIED THAT MAY AFFECT WOUND HEALING: DEVITALIZED TISSUE BIOFILM PAD DIABETES ADVANCED AGE INFECTION MOISTURE IMBALANCE ANTICOAGULATION GOALS: REMOVED DEVITALIZED TISSUE REMOVE AND PREVENT BIOFILM PRESSURE OFFLOADING MANAGE COMORBIDITIES PREVENT AND TREAT INFECTION WOUND CLOSURE ESVIN ROWLEY [id number] 1945 PLAN: DEBRIDEMENT, SWITCH TO DRESSING CHANGES WITH GENTAMICIN CREAM, CONTINUE PROTEIN SUPPLEMENTATION , VITAMIN-C, AND ZINC. CHECK HEMOGLOBIN A1C. FOLLOW UP IN 1 WEEK FOR A RECHECK. NEED TO OBTAIN RESULTS OF RECENT LABS. PROCEDURES WOUND #10 WOUND #10 (DIABETIC ULCER) IS LOCATED ON THE RIGHT LEG. A SKIN/SUBCUTANEOUS TISSUE LEVEL SURGICAL DEBRIDEMENT WITH A TOTAL AREA DEBRIDED OF 0.45 SQ CM. WAS PERFORMED BY AICHA ROMO MD. DERMIS, EPIDERMIS AND SUBCUTANEOUS WERE REMOVED ALONG WITH DEVITALIZED TISSUE: BIOFILM, EXUDATE AND SLOUGH. THE FOLLOWING INSTRUMENT(S) WERE USED: CURETTE. PAIN CONTROL WAS ACHIEVED USING EMLA LIDOCAINE/PRILOCAINE 2.5%/2.5%. A TIME OUT WAS CONDUCTED PRIOR TO THE START OF THE PROCEDURE. A MODERATE AMOUNT OF BLEEDING WAS CONTROLLED WITH SILVER NITRATE. THE PROCEDURE WAS TOLERATED WELL WITH A PAIN LEVEL OF 0 THROUGHOUT AND A PAIN LEVEL OF 0 FOLLOWING THE PROCEDURE. POST DEBRIDEMENT MEASUREMENTS: 0.5CM LENGTH X 0.9CM WIDTH X 0.3CM DEPTH; WITH AN AREA OF 0.45 SQ CM AND A VOLUME OF 0.135 CUBIC CM. ADDITIONAL INFORMATION MUSCLE FASCIA OR BONE REMOVED AND SENT TO PATHOLOGY?: NO PLAN WOUND ORDERS: WOUND #10 RIGHT LEG HAND HYGIENE HAND HYGIENE - WASH HANDS BEFORE AND AFTER WOUND CARE. CALL THE WOUND CENTER AT [phone] IF YOU HAVE SIGNS OR SYMPTOMS OF INFECTION, FEVER CHILLS OR SHAKES, INCREASED DRAINAGE, INCREASED ODOR OR UNUSUAL REDNESS. AFTER WOUND CENTER HOURS PLEASE NOTIFY YOUR PCP OR GO TO THE EMERGENCY ROOM. CLEANSER CLEANSE WOUND WITH NORMAL SALINE CLEANSE WOUND WITH HYPOCHLOROUS ACID (VASHE OR SIMILAR) THEN APPLY HYPOCHLOROUS ACID SOAKED 4X4 GAUZE TO WOUND BED FOR 5-10 MINUTES AFTER WOUND ASSESSMENT COMPLETED. - PURCHASE VASHE TO USE WOUND CLEANSER. MAY SHOWER, LEAVE WOUND DRESSING INTACT. COVER WOUND DRESSING WITH A WATERPROOF BARRIER. KEEP DRESSING DRY. NO BATHS PLEASE. PROCEDURE / ANESTHETIC 5% TOPICAL LIDOCAINE TO WOUND BED PRIOR TO PROCEDURE, IN CLINIC ONLY. TOPICAL TREATMENTS APPLY ANTIBIOTIC/ANTIMICROBIAL OINTMENT/CREAM TO THE WOUND BED. - GENTAMICIN CREAM, FILLING WOUND BED. DRESSING ORDERS APPLY DRESSING(S) AND SECURE WITH: - FOAM SECURED WITH TAPE. DRESSING CHANGE FREQUENCY CHANGE DRESSING DAILY. - TO APPLY THE GENTAMICIN CREAM. ADDITIONAL ORDERS: OFF-LOADING / PRESSURE RELIEF OTHER ORDER: - KEEP PRESSURE OFF YOUR WOUND. USE WHEELCHAIR TO OFFLOAD ULCER. DIETARY TAKE VITAMIN C 1000MG BY MOUTH DAILY. TAKE ZINC 25MG BY MOUTH DAILY. FOLLOW A DIABETIC DIET. INCREASE THE PROTEIN IN YOUR DIET. - AIM FOR ADDITIONAL 30 GRAMS BETWEEN MEALS. ESVIN ROWLEY [id number] 1945 FOLLOW-UP APPOINTMENTS RETURN APPOINTMENT 1 WEEK SCRIBING ATTESTATION I ATTEST, THE NURSE, THAT I SCRIBED THESE ORDERS FOR THE WOUND CARE PROVIDER. PROVIDER REVIEW AND ATTESTATION: REVIEWED AND EVALUATED LABS. REVIEWED HOSPITAL RECORDS. DISCUSSED THE PLAN OF CARE @ BEDSIDE WITH - THE PATIENT AND I AGREE AND ATTEST TO THE ABOVE INFORMATION PROVIDED FROM OTHER LICENSED PROFESSIONALS. PLAN OF CARE: 01. ENSURE/ESTABLISH OPTIMAL BLOOD FLOW : - ORDER VASCULAR CONSULT FOR EVALUATION/TREATMENT AND/OR NON-INVASIVE VASCULAR TESTING. - PT CURRENTLY SEEING VASCULAR SURGEON - DR. FERGUSON @ [facility] VASCULAR. STATUS: COMPLETED DATE: 07/17/2024 02. ASSESS FOR/TREAT INFECTION : - EVALUATE FOR SIGNS AND SYMPTOMS OF INFECTION AND DOCUMENT FINDINGS. STATUS: CONTINUED DATE: 07/24/2024 - OBTAIN CULTURE AND SENSITIVITY (CANDS) OR TISSUE CULTURE WHEN INFECTION IS SUSPECTED. (NOTE:) CONSIDER REPEATING WHEN WOUND HEALING <40% AFTER 30 DAYS OF WOUND CARE. STATUS: COMPLETED DATE: 07/17/2024 03. DEBRIDE WEEKLY OR MORE OFTEN PRN : - DEBRIDEMENT BY ANY METHOD TO REMOVE DEVITALIZED/NECROTIC TISSUE TO PROMOTE HEALING AND PREVENT FURTHER COMPLICATIONS. GOAL IS TO STIMULATE AND/OR MAINTAIN ACUTE PHASE OF WOUND HEALING BY REDUCING BACTERIAL BURDEN AND DEVITALIZED/NON-VIABLE TISSUE. STATUS: CONTINUED DATE: 07/24/2024 04. OPTIMIZE GLUCOSE CONTROL AND NUTRITION : - ORDER/REVIEW PERTINENT LABS TO EVALUATE RENAL FUNCTION, GLUCOSE CONTROL, AND NUTRITIONAL STATUS. STATUS: CONTINUED DATE: 07/24/2024 - COMPLETE A NUTRITION RISK ASSESSMENT. STATUS: COMPLETED DATE: 07/17/2024 05. OFFLOADING PLAN : - ORDER/REVIEW RADIOLOGY TESTS FOR SUSPECTED INFECTION, SIGNIFICANT FINDINGS, OR WHEN STRUCTURE PRESENT AND/OR ULCER LOCATED OVER BONY PROMINENCE. STATUS: COMPLETED DATE: 07/17/2024 06. OPTIMIZE HOST FACTORS: - ASSESS AND REVIEW PATIENT HISTORY FOR WOUND ETIOLOGY, CO-MORBID CONDITIONS, MEDICATION REGIME, AND SMOKING HISTORY. STATUS: CONTINUED DATE: 07/24/2024 07. DRESSING SELECTION : - EDUCATE THE PATIENT/FAMILY/CAREGIVER TO MONITOR DRESSING DAILY. CHANGE DRESSING ONLY NEEDED BUT NEVER LESS FREQUENTLY THAN WEEKLY SO THAT WOUND BED CAN BE REASSESSED. STATUS: CONTINUED DATE: 07/24/2024 08. ADVANCED MODALITIES : - RE-EVALUATE PLAN OF CARE IF NO EVIDENCE OF HEALING (40% IN 4 WEEKS). STATUS: CONTINUED DATE: 07/24/2024 09. FALL PREVENTION : - COMPLETE FALL ASSESSMENT. STATUS: COMPLETED DATE: 07/17/2024 10. PAIN MANAGEMENT : - COMPLETE PAIN ASSESSMENT STATUS: COMPLETED DATE: 07/17/2024 - INSTRUCT THE PATIENT TO CALL ?TIME-OUT? IF PAIN IS TOO INTENSE DURING PROCEDURE. ESVIN ROWLEY [id number] 1945 STATUS: CONTINUED DATE: 07/24/2024 11. MEASURABLE GOALS FOR WOUND HEALING AND/OR HYPERBARIC OXYGEN THERAPY : - WOUND CLOSURE STATUS: CONTINUED DATE: 07/24/2024 12. DURATION/FREQUENCY OF WOUND CARE VISITS : - 1X WEEKLY FOR 30 DAYS STATUS: CONTINUED DATE: 07/24/2024 ELECTRONIC SIGNATURE(S) SIGNED BY: DATE: AICHA ROMO MD 07/24/2024 16:43:20 (PT) ENTERED BY: AICHA ROMO MD ON 07/24/2024 16:41:31 (PT) ESVIN ROWLEY [id number] 1945
== END ==
LOC: WC 13:33
PROVIDERS: PCP Family Medicine; Referring Provider Family Medicine; Visit Provider Surgery
DX: E11.622 Type 2 diabetes mellitus with other skin ulcer (principal); L97.812 Non-pressure chronic ulcer of other part of right lower leg with fat layer exposed; I73.9 Peripheral vascular disease, unspecified; L53.8 Other specified erythematous conditions
CPT/HCPCS: 11042

== ENCOUNTER → 2024-07-31 11:08 | Outpatient (CLI) | payer MEDICARE, OTHER, SELFPAY | LOC: WC 11:10 | PROVIDERS: PCP Family Medicine; Referring Provider Family Medicine; Visit Provider Surgery | DX: E11.622 Type 2 diabetes mellitus with other skin ulcer (principal); L97.812 Non-pressure chronic ulcer of other part of right lower leg with fat layer exposed; I73.9 Peripheral vascular disease, unspecified | CPT/HCPCS: 11042; 99213 ==

== ENCOUNTER 2024-08-07 12:53 | Observation (INO) | payer MEDICARE, OTHER, SELFPAY ==
[2024-08-07 13:06] VITALS: BP 170/70; PULSE 70; RESP 18; TEMP 36.3; O2SAT 97; BMI 30.4
[2024-08-07 13:35] LABS: Add Manual Diff / Slide Review NO; Basophils Absolute Auto 100 /uL (0-100); Basophils Percent Auto 0.8 % (0-2); Eosinophils Absolute Auto 300 /uL (0-450); Eosinophils Percent Auto 3.8 % (2-4); Hematocrit 31.4 % (41-53); Hemoglobin 10.6 g/dL (13.5-17.5); Lymphocytes Absolute Auto 1200 /uL (1100-4500); Lymphocytes Percent Auto 18.3 % (25-40); Mean Corpuscular HGB Conc 33.8 % (30-36); Mean Corpuscular Hemoglobin 31.7 PG (26-34); Mean Corpuscular Volume 93.7 fL (80-100); Monocytes Absolute Auto 500 /uL (0-900); Neutrophils Absolute Auto 4700 /uL (1500-7000); Neutrophils Percent Auto 69.1 % (50-75); Platelet Count 155 X10^3/uL (150-400); Red Blood Cell Count 3.35 X10^6/uL (4.5-5.9); White Blood Cell Count 6.7 X10^3/uL (4.5-11.0)
[2024-08-07 13:47] LABS: Alanine Aminotransferase 36 IU/L (<50); Albumin 4.2 g/dL (3.5-5.0); Albumin Globulin Ratio 1.2 (1.0-2.8); Alkaline Phosphatase 76 U/L (38-126); Aspartate Aminotransferase 36 IU/L (17-59); BUN Creatinine Ratio 31.9 (6-22); Bilirubin Total 0.6 mg/dL (0.2-1.3); Blood Urea Nitrogen 67 mg/dL (9-20); Calcium 9.4 mg/dL (8.4-10.2); Carbon Dioxide 18 mmol/L (22-32); Chloride 110 mmol/L (98-107); Estimated Glomerular Filt Rate 31 mL/min (>60); Globulin 3.4 g/dL (1.7-4.1); Glucose 172 mg/dL (80-110); HEMOLYSIS < 15 (0-50); Potassium 4.5 mmol/L (3.4-5.1); Sodium 139 mmol/L (137-145); Total Protein 7.6 g/dL (6.3-8.2)
--- NOTE | 2024-08-07 14:05 | ED.WOUNDLAC ---
HPI - Wound/Laceration <Allen Muniz PA-C - Last Filed: 08/07/24 16:51> General Chief Complaint: Wound/Laceration Stated Complaint: Wound on right hand that isn't healing Time Seen by Provider: 08/07/24 13:31 History of Present Illness HPI narrative: 79-year-old male with past medical history diabetes, status post right BKA, GERD, CHF, hyperlipidemia, hypertension, chronic AFib, CAD, CKD, peripheral vascular disease, COPD presents to the ED with a worsening leg wound. Patient had a BKA of the right leg, developed an ulcer on the stump which has been worsening. Patient was seeing wound care weekly, was seen last week and started on p.o. linezolid for an infection. Wound culture from 07/20/2024 was positive for MRSA. Patient has been taking it for 5 days with no improvement and states that his wound is worsening. Patient was seen at Wound Care again today, they sent him to the ED for IV antibiotics and admission due to failure on outpatient antibiotics. Patient denies fever, chills, nausea, vomiting, chest pain, shortness of breath. Patient endorses worsening pain at the site of the wound, increased purulent drainage. Related Data Home Medications Medication Instructions Recorded Confirmed albuterol sulfate 90 mcg/actuation 2 puff inhalation Q4-6H PRN 08/04/20 08/07/24 aerosol inhaler Shortness Of Breath Or Wheezing mometasone 220 mcg/actuation(120 1 inh inhalation BID 10/10/20 08/07/24 doses)breath activated powder inhaler tiotropium 2.5 mcg-olodaterol 2.5 2 puff inhalation DAILY 12/24/22 08/07/24 mcg/actuation mist for inhalation rosuvastatin 10 mg tablet 10 mg PO DAILY 10/10/23 08/07/24 gabapentin 300 mg capsule See Rx Instructions PO BEDTIME PRN 11/09/23 08/07/24 Pain, Mild Vitamin B-12 daily 1,000 mcg PO DAILY 12/06/23 08/07/24 [address]ing Permit 1 ea DAILY 08/07/24 08/07/24 semaglutide 0.25 mg or 0.5 mg (2 0.5 mg SUBCUT QWEEK 08/07/24 08/07/24 mg/3 mL) subcutaneous pen injector (Ozempic) Previous Rx's Medication Instructions Recorded apixaban 2.5 mg tablet 2.5 mg PO BID #180 tabs 10/10/23 furosemide 20 mg tablet 20 mg PO Q OTHER DAY #45 tabs 10/10/23 montelukast 10 mg tablet 10 mg PO DAILY #90 tabs 10/10/23 omeprazole 20 mg capsule,delayed 20 mg PO DAILY #90 caps 10/10/23 release tamsulosin 0.4 mg capsule 0.4 mg PO DAILY #90 caps 07/05/24 metoprolol tartrate 25 mg tablet 25 mg PO BID #90 tabs 07/12/24 Allergies Allergy/AdvReac Type Severity Reaction Status Date / Time sulfamethoxazole Allergy Severe CHRIS Verified 06/21/24 10:05 [From Sulfamethoxazole-Trimethoprim] trimethoprim Allergy Severe CHRIS Verified 06/21/24 10:05 [From Sulfamethoxazole-Trimethoprim] Review of Systems <Allen Muniz PA-C - Last Filed: 08/07/24 16:51> Constitutional Constitutional: Denies chills, Denies fatigue, Denies fever(s), Denies frequent falls, Denies lethargy and Denies weakness Eyes Eyes: Denies change in vision, Denies eye discharge, Denies irritation and Denies loss of vision ENT Ears, Nose, Mouth, and Throat: Denies change in voice, Denies dizziness, Denies neck pain, Denies sore throat and Denies throat swelling Cardiovascular Cardiovascular: Denies chest pain, Denies irregular heart rhythm, Denies lightheadedness, Denies palpitations, Denies dyspnea, Denies dyspnea on exertion and Denies orthopnea Respiratory Respiratory: Denies cough, Denies dyspnea, Denies dyspnea on exertion and Denies wheezing Gastrointestinal Gastrointestinal: Denies abdominal pain, Denies change in bowel habits, Denies diarrhea, Denies nausea and Denies vomiting Musculoskeletal Musculoskeletal: Denies neck pain and Denies numbness Integumentary/Breasts Skin/Breast: Denies pruritus, Denies erythema, Denies rash and Reports wounds Comments: Worsening wound on right leg stump. Pain, swelling, redness, discharge. Neurologic Neurologic: Denies behavioral changes, Denies confusion, Denies dizziness, Denies frequent falls, Denies loss of vision, Denies numbness and Denies weakness Psychiatric Psychiatric: Denies anxiety, Denies behavioral changes, Denies confusion, Denies depression, Denies homicidal ideation and Denies suicidal ideation Endocrine Endocrine: Denies fatigue, Denies flushing and Denies palpitations Hematologic/Lymphatic Hematologic/Lymphatic: Denies easy bruising Allergic/Immunologic Allergic/Immunologic: Denies urticaria, Denies throat swelling and Denies wheezing Patient History <Allen Muniz PA-C - Last Filed: 08/07/24 16:51> Medical History Foot pain, left Diabetes mellitus type 2, uncontrolled Peripheral vascular disease Surgical History History of tonsillectomy Social History household members: spouse Smoking Status: Former smoker alcohol intake: former Smoking Status: Former smoker Exam <Allen Muniz PA-C - Last Filed: 08/07/24 16:51> Narrative Exam Narrative: Const General:?cooperative, healthy appearing and comfortable [facility] Head:?normal to inspection Ears:?hearing grossly normal bilaterally Nose:?external nose normal Face and sinus:?normal facial exam and sinuses nontender Mouth:?oral mucosae normal Throat:?posterior oropharynx normal Eyes General:?appearance normal, both eyes and all related structures Neck Neck:?normal visual inspection and no lymphadenopathy noted Resp Effort & Inspection:?normal respiratory effort Auscultation:?clear to auscultation bilaterally Cardio Rate:?regular rate Rhythm:?regular rhythm Integumentary There is a ulcer to the right leg stump. Mild purulence noted. Surrounding erythema. Tender to touch. Neurovascularly intact Neuro General:?patient alert, patient awake and patient oriented x3 Initial Vital Signs Initial Vital Signs: Vital Signs Temperature 97.4 F L 08/07/24 13:06 Pulse Rate 70 08/07/24 13:06 Respiratory Rate 18 08/07/24 13:06 Blood Pressure 170/70 H 08/07/24 13:06 Pulse Oximetry 97 08/07/24 13:06 Oxygen Delivery Method Room Air 08/07/24 13:06 <Edwin Gallo MD - Last Filed: 08/08/24 07:07> Initial Vital Signs Initial Vital Signs: Vital Signs Temperature 97.4 F L 08/07/24 13:06 Pulse Rate 70 08/07/24 13:06 Respiratory Rate 18 08/07/24 13:06 Blood Pressure 170/70 H 08/07/24 13:06 Pulse Oximetry 97 08/07/24 13:06 Oxygen Delivery Method Room Air 08/07/24 13:06 Course <Allen Muniz PA-C - Last Filed: 08/07/24 16:51> Orders Ordered: Acetaminophen (Acetaminophen 325 Mg Tablet) 650 mg PO Q6H PRN PRN Reason: Fever/Mild Pain (1-3) Hydrocodone Bitart/Acetaminophen (Hydrocodone/Acet 5/325 Tablet) 1 tab PO Q4H PRN PRN Reason: Pain, Moderate (4-6) Albuterol/Ipratropium (Albuterol/Ipratropium 3 Ml Ampul) 3 ml INH [id number] [facility] Last Admin: 08/07/24 23:08 Dose: Not Given Documented By: Admin: 08/07/24 20:16 Dose: 3 ml Documented By: MELI Albuterol/Ipratropium (Albuterol/Ipratropium 3 Ml Ampul) 3 ml INH RTQ2HR PRN PRN Reason: shortness of breath Apixaban (Apixaban 5 Mg Tablet) 2.5 mg PO BID [facility] Last Admin: 08/07/24 21:17 Dose: 2.5 mg Documented By: TOVA Atorvastatin Calcium (Atorvastatin 20 Mg Tablet) 20 mg PO DAILY [facility] Budesonide (Budesonide 0.5 Mg/2 Ml Neb) 0.5 mg INH RTBID [facility] Last Admin: 08/07/24 20:16 Dose: 0.5 mg Documented By: MELI Furosemide (Furosemide 20 Mg Tablet) 20 mg PO Q48H [facility] Last Admin: 08/07/24 17:41 Dose: 20 mg Documented By: JOSE MANUEL Vancomycin HCl 750 mg/ Sodium (Chloride) 250 mls @ 250 mls/hr IV Q24H [facility] Last Infusion: 08/07/24 19:56 Dose: Infused Documented By: Admin: 08/07/24 17:43 Dose: 250 mls/hr Documented By: JOSE MANUEL Dextrose (D10w) 100 mls @ 1,200 mls/hr IV PRN PRN PRN Reason: Hypoglycemia Insulin Human Lispro (Insulin Lispro 100 Unit/Ml 3ml Vial) 0 unit SUBCUT ACHS [facility]; Protocol Last Admin: 08/07/24 21:21 Dose: Not Given Documented By: Admin: 08/07/24 17:44 Dose: 2 unit Documented By: JOSE MANUEL Co-signed By: ABRIL Metoprolol Tartrate (Metoprolol Ir 25 Mg Tablet) 25 mg PO BID [facility] Last Admin: 08/07/24 21:17 Dose: 25 mg Documented By: TOVA Naloxone HCl (Naloxone 0.4 Mg/Ml Vial) 0.2 mg IV Q2MIN PRN PRN Reason: Opiate Reversal Ondansetron HCl (Ondansetron 4 Mg Odt) 4 mg PO Q8HR PRN PRN Reason: Nausea And Vomiting Pantoprazole Sodium (Pantoprazole Dr 20 Mg Tablet) 20 mg PO DAILY [facility] Tamsulosin HCl (Tamsulosin 0.4 Mg Capsule) 0.4 mg PO DAILY [facility] Vancomycin HCl (Vancomycin Per Pharmacy) 1 request MISC NOW PRN PRN Reason: Wound Healing Vancomycin HCl (Vancomycin Trough) 1 request MISC NOW ONE Stop: 08/10/24 16:31 Discontinued Medications Enoxaparin Sodium (Enoxaparin 40 Mg/0.4 Ml Syringe) 40 mg SUBCUT DAILY [facility] Vital Signs Vital signs: Vital Signs - 8 hr 08/07/24 13:06 Temperature 97.4 F L Pulse Rate 70 Respiratory Rate 18 Blood Pressure 170/70 H Pulse Oximetry 97 Oxygen Delivery Method Room Air <Edwin Gallo MD - Last Filed: 08/08/24 07:07> Orders Ordered: Acetaminophen (Acetaminophen 325 Mg Tablet) 650 mg PO Q6H PRN PRN Reason: Fever/Mild Pain (1-3) Hydrocodone Bitart/Acetaminophen (Hydrocodone/Acet 5/325 Tablet) 1 tab PO Q4H PRN PRN Reason: Pain, Moderate (4-6) Albuterol/Ipratropium (Albuterol/Ipratropium 3 Ml Ampul) 3 ml INH [id number] [facility] Last Admin: 08/07/24 23:08 Dose: Not Given Documented By: Admin: 08/07/24 20:16 Dose: 3 ml Documented By: MELI Albuterol/Ipratropium (Albuterol/Ipratropium 3 Ml Ampul) 3 ml INH RTQ2HR PRN PRN Reason: shortness of breath Apixaban (Apixaban 5 Mg Tablet) 2.5 mg PO BID [facility] Last Admin: 08/07/24 21:17 Dose: 2.5 mg Documented By: SHADIAW Atorvastatin Calcium (Atorvastatin 20 Mg Tablet) 20 mg PO DAILY [facility] Budesonide (Budesonide 0.5 Mg/2 Ml Neb) 0.5 mg INH RTBID [facility] Last Admin: 08/07/24 20:16 Dose: 0.5 mg Documented By: MELI Furosemide (Furosemide 20 Mg Tablet) 20 mg PO Q48H [facility] Last Admin: 08/07/24 17:41 Dose: 20 mg Documented By: JOSE MANUEL Vancomycin HCl 750 mg/ Sodium (Chloride) 250 mls @ 250 mls/hr IV Q24H [facility] Last Infusion: 08/07/24 19:56 Dose: Infused Documented By: Admin: 08/07/24 17:43 Dose: 250 mls/hr Documented By: JOSE MANUEL Dextrose (D10w) 100 mls @ 1,200 mls/hr IV PRN PRN PRN Reason: Hypoglycemia Insulin Human Lispro (Insulin Lispro 100 Unit/Ml 3ml Vial) 0 unit SUBCUT ACHS [facility]; Protocol Last Admin: 08/07/24 21:21 Dose: Not Given Documented By: Admin: 08/07/24 17:44 Dose: 2 unit Documented By: JOSE MANUEL Co-signed By: ABRIL Metoprolol Tartrate (Metoprolol Ir 25 Mg Tablet) 25 mg PO BID [facility] Last Admin: 08/07/24 21:17 Dose: 25 mg Documented By: TOVA Naloxone HCl (Naloxone 0.4 Mg/Ml Vial) 0.2 mg IV Q2MIN PRN PRN Reason: Opiate Reversal Ondansetron HCl (Ondansetron 4 Mg Odt) 4 mg PO Q8HR PRN PRN Reason: Nausea And Vomiting Pantoprazole Sodium (Pantoprazole Dr 20 Mg Tablet) 20 mg PO DAILY [facility] Tamsulosin HCl (Tamsulosin 0.4 Mg Capsule) 0.4 mg PO DAILY [facility] Vancomycin HCl (Vancomycin Per Pharmacy) 1 request MISC NOW PRN PRN Reason: Wound Healing Vancomycin HCl (Vancomycin Trough) 1 request MISC NOW ONE Stop: 08/10/24 16:31 Discontinued Medications Enoxaparin Sodium (Enoxaparin 40 Mg/0.4 Ml Syringe) 40 mg SUBCUT DAILY [facility] Vital Signs Vital signs: Vital Signs - 8 hr 04/08/25 13:06 Temperature 97.4 F L Pulse Rate 70 Respiratory Rate 18 Blood Pressure 170/70 H Pulse Oximetry 97 Oxygen Delivery Method Room Air MDM - Wound/Laceration <Allen Muniz PA-C - Last Filed: 08/07/24 16:51> Lab Data 08/07/24 13:20 08/07/24 17:27 Labs: Lab Results 08/07/24 Range/Units 13:20 WBC 6.7 (4.5-11.0) X10^3/uL RBC 3.35 L (4.5-5.9) X10^6/uL Hgb 10.6 L (13.5-17.5) g/dL Hct 31.4 L (41-53) % MCV 93.7 (80-100) fL MCH 31.7 (26-34) PG MCHC 33.8 (30-36) % RDW 14.0 (11.6-14.8) % Plt Count 155 (150-400) X10^3/uL Neut % (Auto) 69.1 (50-75) % Lymph % (Auto) 18.3 L (25-40) % [place] % (Auto) 8.0 (3-14) % Eos % (Auto) 3.8 (2-4) % Baso % (Auto) 0.8 (0-2) % Neut # (Auto) 4700 (0717-7366) /uL Lymph # (Auto) 1200 (4342-7812) /uL [place] # (Auto) 500 (0-900) /uL Eos # (Auto) 300 (0-450) /uL Baso # (Auto) 100 (0-100) /uL Sodium 139 (137-145) mmol/L Potassium 4.5 (3.4-5.1) mmol/L Chloride 110 H (98-107) mmol/L Carbon Dioxide 18 L (22-32) mmol/L BUN 67 H (9-20) mg/dL Creatinine 2.10 H (0.66-1.25) mg/dL Estimated GFR 31 L (>60) mL/min BUN/Creatinine Ratio 31.9 H (6-22) Glucose 172 H (80-110) mg/dL Hemoglobin A1c 6.6 H (4.0-6.0) % Calcium 9.4 (8.4-10.2) mg/dL Total Bilirubin 0.6 (0.2-1.3) mg/dL AST 36 (17-59) IU/L ALT 36 (<50) IU/L Alkaline Phosphatase 76 (38-126) U/L Total Protein 7.6 (6.3-8.2) g/dL Albumin 4.2 (3.5-5.0) g/dL Globulin 3.4 (1.7-4.1) g/dL Albumin/Globulin Ratio 1.2 (1.0-2.8) [facility] Narrative Medical decision making narrative: 79-year-old male with past medical history diabetes, status post right BKA, GERD, CHF, hyperlipidemia, hypertension, chronic AFib, CAD, CKD, peripheral vascular disease, COPD presents to the ED with a worsening leg wound. Spoke with Erna Valente Pa-c from the wound care clinic. She states that while she did not actually see the patient, the nurses did and sent him to the ED since they saw a drastic worsening of the wound. Labs, wound culture, blood cultures obtained. Labs significant for a creatinine of 2.1 GFR 31, indicating worsening kidney function from 10/24/2023 where the creatinine was 1.83 with a GFR of 37. Unclear if this is an CHRIS or a progression of CKD. WBCs 6.7. No indication of sepsis. Will start fluids, IV antibiotics, likely admit. Hospitalist Dr. Pederson was consulted. He graciously admits the patient for observation and IV antibiotics and wound care. Plan of care and disposition discussed with patient and patient's family. They verbalized understanding. Medical records reviewed: Yes <Edwin Gallo MD - Last Filed: 08/08/24 07:07> Lab Data Labs: Lab Results 08/07/24 Range/Units 13:20 WBC 6.7 (4.5-11.0) X10^3/uL RBC 3.35 L (4.5-5.9) X10^6/uL Hgb 10.6 L (13.5-17.5) g/dL Hct 31.4 L (41-53) % MCV 93.7 (80-100) fL MCH 31.7 (26-34) PG MCHC 33.8 (30-36) % RDW 14.0 (11.6-14.8) % Plt Count 155 (150-400) X10^3/uL Neut % (Auto) 69.1 (50-75) % Lymph % (Auto) 18.3 L (25-40) % [place] % (Auto) 8.0 (3-14) % Eos % (Auto) 3.8 (2-4) % Baso % (Auto) 0.8 (0-2) % Neut # (Auto) 4700 (3960-3854) /uL Lymph # (Auto) 1200 (6195-7783) /uL [place] # (Auto) 500 (0-900) /uL Eos # (Auto) 300 (0-450) /uL Baso # (Auto) 100 (0-100) /uL Sodium 139 (137-145) mmol/L Potassium 4.5 (3.4-5.1) mmol/L Chloride 110 H (98-107) mmol/L Carbon Dioxide 18 L (22-32) mmol/L BUN 67 H (9-20) mg/dL Creatinine 2.10 H (0.66-1.25) mg/dL Estimated GFR 31 L (>60) mL/min BUN/Creatinine Ratio 31.9 H (6-22) Glucose 172 H (80-110) mg/dL Hemoglobin A1c 6.6 H (4.0-6.0) % Calcium 9.4 (8.4-10.2) mg/dL Total Bilirubin 0.6 (0.2-1.3) mg/dL AST 36 (17-59) IU/L ALT 36 (<50) IU/L Alkaline Phosphatase 76 (38-126) U/L Total Protein 7.6 (6.3-8.2) g/dL Albumin 4.2 (3.5-5.0) g/dL Globulin 3.4 (1.7-4.1) g/dL Albumin/Globulin Ratio 1.2 (1.0-2.8) Discharge Plan Departure Patient Disposition: Admitted As Inpatient Clinical Impression: Infected wound Admit Date/Time: 08/07/24 16:21 Admit Provider: Ilan Wu ED Sign-out <Edwin Gallo MD - Last Filed: 08/08/24 07:07> Cosign ED Attending Cosignature Attestation: I was immediately available in the department for consultation. This documentation has been reviewed and I agree with assessment and plan. Supervised by Edwin Gallo MD
--- NOTE | 2024-08-07 16:37 | PM.HP.1 ---
History of Present Illness History of Present Illness Date Patient Seen: 08/07/24 Time Patient Seen: 16:37 Chief complaint: Wound Narrative: Chief complaint: Nonhealing and increasing wound right stump History of present illness: 79-year-old male status post right BKA August 2023 had a small wound that started in April the lateral aspect of the incision. Patient has been back and forth to vascular surgery wound clinic and placed on antibiotics including doxycycline ultimately linezolid. Unfortunately the wound has been progressively opening though not large is now 1.8 sq cm with margins that are not showing signs of healing. Request from the wound clinic for admission for intravenous antibiotics and inpatient care. Patient has type 2 diabetes peripheral vascular disease peripheral vascular insufficiency Current medications: Albuterol MDI 2 puffs q.4 hours as needed Ascorbic acid 250 mg daily Vitamin B12 1000 mcg daily Linezolid 600 mg daily Iron sulfate 325 mg daily Furosemide 20 mg every other day Gabapentin 300 mg 2 at HS Metoprolol 25 mg twice a day Mometasone 200/HFA aerosolized inhaler 2 inhalers b.i.d. Singulair 10 mg daily new line Nitrostat sublingual Omeprazole 20 mg daily MiraLax daily Crestor 40 mg daily Ozempic 0.25 mg injection daily Flomax 0.4 mg HS Anoro Ellipta Diskus inhaler inhaled daily Review of systems: No fever or chills new line no change in appetite No difficulty swallowing No palpitations chest pain No shortness a breath cough No nausea vomiting diarrhea No urinary symptoms Physical exam: Elderly gentleman obese with a below-knee amputation stump HEENT unremarkable Neck no JVD Nonlabored respirations Abdomen soft Right lower extremity stump has well-healed scar from medial to past the midline and then a 1.8 cm wound with small amount of kee and black eschar in the base poor margins without significant healing. Assessment and plan: Chronic wound with worsening a wound culture demonstrated MRSA although this is probably unreliable the wounds actually does not appear infected at the time of my evaluation. IV vancomycin for now dose per pharmacy Wound care evaluation and consensus decision on possible wound VAC that might help with healing Patient lives in [facility] and resources for wound care management need to be addressed Type 2 diabetes on Ozempic monotherapy Sliding scale insulin for hyperglycemia if needed DVT prophylaxis Lovenox Full code blue 55 minutes were required in the management of this patient for admission [facility] Medical History (Updated 06/06/24 @ 11:34 by Irving Dominguez MD) Foot pain, left Diabetes mellitus type 2, uncontrolled Peripheral vascular disease Surgical History (Updated 08/30/17 @ 06:19 by Conversion Provider) History of tonsillectomy Social History (Updated 08/04/20 @ 13:34 by Evelia Ham CMA) Smoking Status: Former smoker Meds Home Medications and Allergies Home Medications Medication Instructions Recorded Confirmed Type Disabled Parking Permit ea ##1 10/22/16 06/21/24 Rx albuterol sulfate 90 mcg/actuation 2 puff inhalation Q4-6H PRN 08/04/20 06/21/24 History aerosol inhaler mometasone 220 mcg/actuation(120 1 inh inhalation BID 10/10/20 06/21/24 History doses)breath activated powder inhaler tiotropium 2.5 mcg-olodaterol 2.5 2 puff inhalation DAILY 12/24/22 06/21/24 History mcg/actuation mist for inhalation apixaban 2.5 mg tablet 2.5 mg PO BID #180 tabs 10/10/23 06/21/24 Rx furosemide 20 mg tablet 20 mg PO Q OTHER DAY #45 tabs 10/10/23 06/21/24 Rx montelukast 10 mg tablet 10 mg PO DAILY #90 tabs 10/10/23 06/21/24 Rx omeprazole 20 mg capsule,delayed 20 mg PO DAILY #90 caps 10/10/23 06/21/24 Rx release rosuvastatin 10 mg tablet 10 mg PO DAILY 10/10/23 06/21/24 History semaglutide 0.25 mg or 0.5 mg (2 0.25 mg (0.368 mL) SUBCUT QWEEK #3 10/11/23 06/21/24 Rx mg/3 mL) subcutaneous pen injector mL (Ozempic) gabapentin 300 mg capsule See Rx Instructions PO BEDTIME PRN 11/09/23 06/21/24 History Vitamin B-12 daily PO 12/06/23 06/21/24 History amoxicillin 500 mg capsule 1,000 mg (2 x 500 mg) PO Q12H #28 06/06/24 06/21/24 Rx caps tamsulosin 0.4 mg capsule 0.4 mg PO DAILY #90 caps 07/05/24 Rx metoprolol tartrate 25 mg tablet 25 mg PO BID #90 tabs 07/12/24 Rx gentamicin 0.1 % topical cream 1 applic topical DAILY #30 grams 07/20/24 Rx Allergies Allergy/AdvReac Type Severity Reaction Status Date / Time sulfamethoxazole Allergy Severe CHRIS Verified 06/21/24 10:05 [From Sulfamethoxazole-Trimethoprim] trimethoprim Allergy Severe CHIRS Verified 06/21/24 10:05 [From Sulfamethoxazole-Trimethoprim] Exam Vital Signs (past 8 hours): - 08/07/24 13:06 Temperature 97.4 F L Pulse Rate 70 Respiratory Rate 18 Blood Pressure 170/70 H Pulse Oximetry 97 Oxygen Delivery Method Room Air Oxygen Delivery Method Room Air Objective Labs 08/07/24 13:20 08/07/24 13:20 Labs: Laboratory Results - last 24 hr 08/07/24 13:20 WBC 6.7 RBC 3.35 L Hgb 10.6 L Hct 31.4 L MCV 93.7 MCH 31.7 MCHC 33.8 RDW 14.0 Plt Count 155 Neut % (Auto) 69.1 Lymph % (Auto) 18.3 L [place] % (Auto) 8.0 Eos % (Auto) 3.8 Baso % (Auto) 0.8 Neut # (Auto) 4700 Lymph # (Auto) 1200 [place] # (Auto) 500 Eos # (Auto) 300 Baso # (Auto) 100 Sodium 139 Potassium 4.5 Chloride 110 H Carbon Dioxide 18 L BUN 67 H Creatinine 2.10 H Estimated GFR 31 L BUN/Creatinine Ratio 31.9 H Glucose 172 H Calcium 9.4 Total Bilirubin 0.6 AST 36 ALT 36 Alkaline Phosphatase 76 Total Protein 7.6 Albumin 4.2 Globulin 3.4 Albumin/Globulin Ratio 1.2 Assessment & Plan Time-Based Coding :: [TOTAL MINUTES] spent with patient and on the chart (including review of chart, obtaining history, exam, reviewing outside data, placing orders, documenting exam and treatment plan, and counseling patient) on [DATE].
[2024-08-07 16:50] VITALS: BP 188/77; PULSE 78; RESP 16; TEMP 36.3; O2SAT 97
[2024-08-07 17:06] VITALS: BMI 30.4
[2024-08-07] MEDS: FUROSEMIDE 20 MG TABLET PO (17:41)
[2024-08-07] MEDS: VANCOMYCIN HCL 750 MG in SODIUM CHLORIDE 0.9% 250 ML 250 MG IV (17:43)
[2024-08-07] MEDS: INSULIN LISPRO 100 UNIT/ML 3ML VIAL SUBCUT (17:44)
[2024-08-07 17:45] LABS: Alanine Aminotransferase 40 IU/L (<50); Albumin 4.3 g/dL (3.5-5.0); Albumin Globulin Ratio 1.2 (1.0-2.8); Alkaline Phosphatase 86 U/L (38-126); Aspartate Aminotransferase 39 IU/L (17-59); BUN Creatinine Ratio 30.4 (6-22); Bilirubin Total 0.5 mg/dL (0.2-1.3); Blood Urea Nitrogen 62 mg/dL (9-20); Calcium 9.3 mg/dL (8.4-10.2); Carbon Dioxide 18 mmol/L (22-32); Chloride 109 mmol/L (98-107); Estimated Glomerular Filt Rate 32 mL/min (>60); Globulin 3.6 g/dL (1.7-4.1); Glucose 193 mg/dL (80-110); HEMOLYSIS < 15 (0-50); Potassium 4.3 mmol/L (3.4-5.1); Sodium 138 mmol/L (137-145); Total Protein 7.9 g/dL (6.3-8.2)
[2024-08-07 18:00] VITALS: BP 168/52; PULSE 68; RESP 16; O2SAT 97
[2024-08-07 18:24] LABS: Hemoglobin A1C% w Est Avg Glu 6.6 % (4.0-6.0)
[2024-08-07 19:42] VITALS: BP 184/74; PULSE 67; RESP 16; TEMP 35.6; O2SAT 98
[2024-08-07 20:16] VITALS: PULSE 67; RESP 20; O2SAT 97
[2024-08-07] MEDS: ALBUTEROL/IPRATROPIUM 3 ML AMPUL INH (20:16)
[2024-08-07] MEDS: BUDESONIDE 0.5 MG/2 ML NEB INH (20:16)
[2024-08-07] MEDS: APIXABAN 5 MG TABLET 2.5 MG PO (21:17)
[2024-08-07] MEDS: METOPROLOL IR 25 MG TABLET PO (21:17)
[2024-08-08 02:00] VITALS: BP 149/50; PULSE 63; RESP 17; TEMP 35.7; O2SAT 99
[2024-08-08 07:54] VITALS: BP 149/62; PULSE 81; RESP 15; TEMP 36.3; O2SAT 97
[2024-08-08] MEDS: TAMSULOSIN 0.4 MG CAPSULE PO (08:56)
[2024-08-08] MEDS: APIXABAN 5 MG TABLET 2.5 MG PO ×2 (08:56→20:36)
[2024-08-08] MEDS: ATORVASTATIN 20 MG TABLET PO (08:56)
[2024-08-08] MEDS: METOPROLOL IR 25 MG TABLET PO ×2 (08:57→20:36)
[2024-08-08] MEDS: PANTOPRAZOLE DR 20 MG TABLET PO (08:58)
[2024-08-08] MEDS: ALBUTEROL/IPRATROPIUM 3 ML AMPUL INH ×4 (09:04→19:30)
[2024-08-08] MEDS: BUDESONIDE 0.5 MG/2 ML NEB INH ×2 (09:04→19:29)
[2024-08-08 09:05] VITALS: PULSE 86; RESP 16; O2SAT 99
[2024-08-08] MEDS: INSULIN LISPRO 100 UNIT/ML 3ML VIAL SUBCUT ×3 (12:20→20:43)
[2024-08-08 14:00] VITALS: BP 165/55; PULSE 77; RESP 16; TEMP 36.4; O2SAT 98
[2024-08-08 16:36] LABS: Alanine Aminotransferase 37 IU/L (<50); Albumin 4.3 g/dL (3.5-5.0); Albumin Globulin Ratio 1.2 (1.0-2.8); Alkaline Phosphatase 73 U/L (38-126); Aspartate Aminotransferase 33 IU/L (17-59); BUN Creatinine Ratio 24.3 (6-22); Bilirubin Total 0.5 mg/dL (0.2-1.3); Blood Urea Nitrogen 55 mg/dL (9-20); Calcium 9.1 mg/dL (8.4-10.2); Carbon Dioxide 18 mmol/L (22-32); Chloride 106 mmol/L (98-107); Estimated Glomerular Filt Rate 29 mL/min (>60); Globulin 3.6 g/dL (1.7-4.1); Glucose 185 mg/dL (80-110); HEMOLYSIS < 15 (0-50); Potassium 4.6 mmol/L (3.4-5.1); Sodium 137 mmol/L (137-145); Total Protein 7.9 g/dL (6.3-8.2)
--- NOTE | 2024-08-08 16:43 | CM.DANOTE ---
DCP Assessment note pt is a 79yo M admitted due to wound care concerns. PMH Of a right BKA August 2023 and the wound just has not healed right since. pt diabetes potential contributing factor to slow healing wound. PCP Irving Dominguez Payer Medicare and [facility]. NEPHROLOGY NURSE reviewed EMR. pt has been going to OP wound clinic at for long time. per RN, wound has improved with IV abx. per provider in morning rounds, wound small but 1/2 inch deep, wondering if wound vac would help with healing process to promote blood flow to area. wound care consult pending. NEPHROLOGY NURSE lvm with wound care clinic to notify of wound care consult. NEPHROLOGY NURSE met with pt and family in room and introduced self and role. pt lives with spouse mahi on [facility] [address] drives. has DME needed for home. has a year priority boarding [employer] pass. no Hx of HH. does not believe he is home bound to qualify. open to wound vac if recommended. waiting to hear from wound care provider. spouse is having catarac surgery in [place] tomorrow. dtr will transport pt home if he discharges tomorrow. if no wound vac needed, no DCP needs anticipated at this time. P: pending wound care plan. will follow closely for recs. home with family support at ok. CM team will continue to follow closely PARI Goddard Discharge Planning/Care Management CM Discharge Assessment Start: 08/08/24 16:42 Freq: Status: Active Protocol: Document 08/08/24 16:42 SL (Rec: 08/08/24 16:43 SL Desktop) Discharge Planning Assessment Assigned Tip Stitcher PARI Patel DPOA/Assigned Designee Name Suki spouse Contact Information [phone] Advance Directives? No History Provided By Patient,Significant Other Prior Living Arrangements House Household Members spouse Type of transporation used prior to Drives own vehicle admit Independent with ADL's Yes Is patient alert and oriented? Yes Community Services used prior to Wound Care admission: Discharge Plan Home Referrals Initiated None needed Whiteboard Updated in Patient Room with Yes name and ext. # of Tip Stitcher Review Status In Process Please Provide Date Initial DC 08/08/24 Assessment Was Performed Next Review Type Continued Stay Review
[2024-08-08] MEDS: VANCOMYCIN HCL 750 MG in SODIUM CHLORIDE 0.9% 250 ML 250 MG IV (17:19)
--- NOTE | 2024-08-08 17:36 | PM.PN.1 ---
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 Patient has been back and forth to vascular surgery wound clinic and placed on antibiotics including doxycycline ultimately linezolid. Unfortunately the wound has been progressively opening though not large is now 1.8 sq cm with margins that are not showing signs of healing. Request from the wound clinic for admission for intravenous antibiotics and inpatient care. Patient has type 2 diabetes peripheral vascular disease peripheral vascular insufficiency Hospital course: 08/08: Case reviewed with Erna MCKINNEY for the wound clinic a wound VAC was ordered: The order in [employer] is ?Apply change dressing? And then in the instructions put wound VAC Assessment and plan: Chronic wound with worsening a wound culture demonstrated MRSA although this is probably unreliable the wounds actually does not appear infected at the time of my evaluation. IV vancomycin for now dose per pharmacy Wound care evaluation and consensus decision on possible wound VAC that might help with healing Patient lives in [facility] and resources for wound care management need to be addressed Type 2 diabetes on Ozempic monotherapy Sliding scale insulin for hyperglycemia if needed DVT prophylaxis Lovenox Full code blue 35 minutes were required in the management of this patient Exam Vital Signs (past 8 hours): - 08/08/24 14:00 Temperature 97.5 F L Pulse Rate 77 Respiratory Rate 16 Blood Pressure 165/55 H Pulse Oximetry 98 Oxygen Flow Rate 0 Fraction of Inspired Oxygen 21 SaO2/FiO2 Ratio 461 Oxygen Delivery Method Room Air Oxygen Flow Rate 0 Objective Labs 08/07/24 13:20 08/08/24 16:20 Labs: Laboratory Results - last 24 hr 08/07/24 08/07/24 08/08/24 13:20 17:27 16:20 Sodium 138 137 Potassium 4.3 4.6 Chloride 109 H 106 Carbon Dioxide 18 L 18 L BUN 62 H 55 H Creatinine 2.04 H 2.26 H Estimated GFR 32 L 29 L BUN/Creatinine Ratio 30.4 H 24.3 H Glucose 193 H 185 H Hemoglobin A1c 6.6 H Calcium 9.3 9.1 Total Bilirubin 0.5 0.5 AST 39 33 ALT 40 37 Alkaline Phosphatase 86 73 Total Protein 7.9 7.9 Albumin 4.3 4.3 Globulin 3.6 3.6 Albumin/Globulin Ratio 1.2 1.2 [facility] Medical History Foot pain, left Diabetes mellitus type 2, uncontrolled Peripheral vascular disease Surgical History History of tonsillectomy Social History household members: spouse Smoking Status: Former smoker alcohol intake: former Assessment & Plan Time-Based Coding :: [TOTAL MINUTES] spent with patient and on the chart (including review of chart, obtaining history, exam, reviewing outside data, placing orders, documenting exam and treatment plan, and counseling patient) on [DATE].
--- NOTE | 2024-08-08 17:37 | PM.CN.IH.1 ---
History of Present Illness Consult details Date Patient Seen: 08/08/24 Time Patient Seen: 05:00 Chief complaint: Wound Reason for consult: wound consult Requesting provider: Ilan Wu Narrative: Chief complaint: Nonhealing and increasing wound right stump History of present illness: The patient is a 79 year old male with arthritis, CAD, CKD, atrial fibrillation, Type II diabetes mellitus, and PAD currently hospitalized for IV antibiotics to treat chronic wound of right BKA incision. He is a regular patient at the wound care clinic. The patient underwent a right below-knee amputation August 23, 2023 because of osteomyelitis of the right foot. The wound got larger when he started using a prosthesis. The patient has been receiving dressing changes with iodoflex and linezolid for the week prior to hospitalization. His wound was showing some deterioration at nursing follow up and we recommended transfer to the hospital for IV antibiotics. Culture 07/17/24 had shown scant MRSA with multiple antibiotic resistance. He is currently on IV vancomycin. His would does not appear infected at this time. He reports he is generally feeling well at his baseline without fevers or other complaints. On exam today, there is slough and granulation tissue in the wound bed with no significant erythema to periwound area. Expectation is to discharge tomorrow. Meds Home Medications and Allergies Home Medications Medication Instructions Recorded Confirmed Type albuterol sulfate 90 mcg/actuation 2 puff inhalation Q4-6H PRN 08/04/20 08/07/24 History aerosol inhaler Shortness Of Breath Or Wheezing mometasone 220 mcg/actuation(120 1 inh inhalation BID 10/10/20 08/07/24 History doses)breath activated powder inhaler tiotropium 2.5 mcg-olodaterol 2.5 2 puff inhalation DAILY 12/24/22 08/07/24 History mcg/actuation mist for inhalation apixaban 2.5 mg tablet 2.5 mg PO BID #180 tabs 10/10/23 08/07/24 Rx furosemide 20 mg tablet 20 mg PO Q OTHER DAY #45 tabs 10/10/23 08/07/24 Rx montelukast 10 mg tablet 10 mg PO DAILY #90 tabs 10/10/23 08/07/24 Rx omeprazole 20 mg capsule,delayed 20 mg PO DAILY #90 caps 10/10/23 08/07/24 Rx release rosuvastatin 10 mg tablet 10 mg PO DAILY 10/10/23 08/07/24 History gabapentin 300 mg capsule See Rx Instructions PO BEDTIME PRN 11/09/23 08/07/24 History Pain, Mild Vitamin B-12 daily 1,000 mcg PO DAILY 12/06/23 08/07/24 History tamsulosin 0.4 mg capsule 0.4 mg PO DAILY #90 caps 07/05/24 08/07/24 Rx metoprolol tartrate 25 mg tablet 25 mg PO BID #90 tabs 07/12/24 08/07/24 Rx Disabled Parking Permit 1 ea DAILY 08/07/24 08/07/24 History semaglutide 0.25 mg or 0.5 mg (2 0.5 mg SUBCUT QWEEK 08/07/24 08/07/24 History mg/3 mL) subcutaneous pen injector (Ozempic) Allergies Allergy/AdvReac Type Severity Reaction Status Date / Time sulfamethoxazole Allergy Severe CHRIS Verified 06/21/24 10:05 [From Sulfamethoxazole-Trimethoprim] trimethoprim Allergy Severe CHRIS Verified 06/21/24 10:05 [From Sulfamethoxazole-Trimethoprim] Exam Vital Signs (past 8 hours): - 08/08/24 14:00 Temperature 97.5 F L Pulse Rate 77 Respiratory Rate 16 Blood Pressure 165/55 H Pulse Oximetry 98 Oxygen Flow Rate 0 Fraction of Inspired Oxygen 21 SaO2/FiO2 Ratio 461 Oxygen Delivery Method Room Air Oxygen Flow Rate 0 Const General:?cooperative and comfortable HENMT Head:?normal to inspection Ears:?hearing grossly normal bilaterally Eyes General:?appearance normal, both eyes and all related structures Resp Effort & Inspection:?normal respiratory effort Integumentary There is a ulcer to the right leg stump. Slough and granulation tissue in wound bend. Periwound w/ slight inflammation no significant erythema. Ulcer appox 1x1 cm and 0.5cm deep. Neurovascularly intact Neuro General:?patient alert, patient awake and patient oriented x3 Family present: and daughter Objective Labs 08/07/24 13:20 08/08/24 16:20 Labs: Laboratory Results - last 24 hr 08/07/24 08/07/24 08/08/24 13:20 17:27 16:20 Sodium 138 137 Potassium 4.3 4.6 Chloride 109 H 106 Carbon Dioxide 18 L 18 L BUN 62 H 55 H Creatinine 2.04 H 2.26 H Estimated GFR 32 L 29 L BUN/Creatinine Ratio 30.4 H 24.3 H Glucose 193 H 185 H Hemoglobin A1c 6.6 H Calcium 9.3 9.1 Total Bilirubin 0.5 0.5 AST 39 33 ALT 40 37 Alkaline Phosphatase 86 73 Total Protein 7.9 7.9 Albumin 4.3 4.3 Globulin 3.6 3.6 Albumin/Globulin Ratio 1.2 1.2 [facility] Medical History Foot pain, left Diabetes mellitus type 2, uncontrolled Peripheral vascular disease Surgical History History of tonsillectomy Social History household members: spouse Tobacco & Substance Use Smoking Status: Former smoker alcohol intake: former Assessment & Plan Assessment and plan (1) Infected wound: Status: Acute (2) Non-healing wound of amputation stump: Status: Acute Plan Continue IV antibiotics while in patient, and recommend discharge on oral antibiotic until f/u at wound care Dressing: I applied new hydrofera blue dressing with bordered foam today until we can proceed with wound vac. Recommend proceed with wound vac placement - if unable to procure before discharge, switch to hydrofera blue foam covered with foam dressing QOD Discussed option for HBO therapy - likely will be difficult due to transportation from [facility]. Patient's family will consider. Consider referral to ID at f/u F/u as planned at wound clinic next week Tuesday Time-Based Coding :: [55 MINUTES] spent with patient and on the chart (including review of chart, obtaining history, exam, reviewing outside data, placing orders, documenting exam and treatment plan, and counseling patient) on [08/08/24]. PROFEE Charge Codes Inpatient or Observation consultation: [id number]
[2024-08-08 19:30] VITALS: PULSE 86; RESP 18; O2SAT 95
[2024-08-08 20:00] VITALS: BP 159/69; PULSE 99; RESP 17; TEMP 35.8; O2SAT 95
[2024-08-08] MEDS: HYDROCODONE/ACET 5/325 TABLET 1 TAB PO (20:36)
[2024-08-09] MEDS: GABAPENTIN 300 MG CAPSULE PO (00:06)
--- NOTE | 2024-08-09 01:37 | PC.NURSE ---
NOC Shift Note- Patient called complaining of burning pain to wound site. Patient reports burning pain at 9 or 10/10. Wound site is not red or warm to touch. sent message to hospitalist. Hospitalist asked if patient takes gabapentin oir lyrica at home. Patient does take gabapentin 300mg PO QHS at home which had not been ordered since this hospital admission. Doctor ordered gabapentin 300mg PO QHS to jeet now. Patient tolerated without issue. Patient currently sitting ujp to recliner chair resting quietly with eyes closeed, Safety6 measures in place. call lacy within reach. Will continue to monitor.
[2024-08-09] MEDS: ALBUTEROL/IPRATROPIUM 3 ML AMPUL INH ×2 (07:55→11:04)
[2024-08-09] MEDS: BUDESONIDE 0.5 MG/2 ML NEB INH (07:55)
[2024-08-09 08:00] VITALS: BP 153/78; PULSE 86; RESP 18; TEMP 36.2; O2SAT 95
[2024-08-09] MEDS: TAMSULOSIN 0.4 MG CAPSULE PO (08:51)
[2024-08-09] MEDS: METOPROLOL IR 25 MG TABLET PO (08:52)
[2024-08-09] MEDS: APIXABAN 5 MG TABLET 2.5 MG PO (08:52)
[2024-08-09] MEDS: PANTOPRAZOLE DR 20 MG TABLET PO (08:52)
[2024-08-09] MEDS: ATORVASTATIN 20 MG TABLET PO (08:52)
--- NOTE | 2024-08-09 12:54 | CM.DPC ---
DCP Discharge Home Per MD, placed Wound Consult order yesterday to confirm if wound vac needed at d/c and one was placed bedside here yesterday in case needed at d/c. Per Wound Consult, recommending ongoing dressing changes at home and outpt f/u and do not feel wound vac needed but if so then they can manage in outpt setting vs place wound vac in outpt setting. Ana at [facility] confirms that pt has next outpt appointment scheduled in a couple days on 08/14/24 at 1015 and they updated pt and spouse on this yesterday. Ana states pt has dressing supplies at home but they will call spouse today to confirm they have enough to get through the weekend and if not then spouse can stop by [facility] before they go back to [facility] to meat pickler some additional supplies. SW met bedside with pt and updated on above and he confirms he is agreeable with d/c to home today and is aware of his next appt at [facility] and states spouse is completing her eye procedure at [facility] today and Dtr providing transport for both of them home and should be bedside by around 1400. Updated RN and awaiting discharge orders. Pt and spouse already have priority board medical pass from his outpt [facility] appointments. PARI Cortes
--- NOTE | 2024-08-09 13:03 | P.DS_ITS ---
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 Patient has been back and forth to vascular surgery wound clinic and placed on antibiotics including doxycycline ultimately linezolid. Unfortunately the wound has been progressively opening though not large is now 1.8 sq cm with margins that are not showing signs of healing. Request from the wound clinic for admission for intravenous antibiotics and inpatient care. Patient has type 2 diabetes peripheral vascular disease peripheral vascular insufficiency Hospital course: Patient received 48 hours of IV vancomycin no changes in the wound wound VAC was placed. And was tolerated. Benefit of the wound VAC is questionable but this can be still considered however at this point will continue with the Iodoflex management discharge to home follow-up in 4 days wound care to monitor the progress by Erna MCKINNEY Review of systems: No fever or chills new line no change in appetite No difficulty swallowing No palpitations chest pain No shortness a breath cough No nausea vomiting diarrhea No urinary symptoms Physical exam: Elderly gentleman obese with a below-knee amputation stump HEENT unremarkable Neck no JVD Nonlabored respirations Abdomen soft Right lower extremity stump has well-healed scar from medial to past the midline and then a 1.8 cm wound with small amount of kee and black eschar in the base poor margins without significant healing. Assessment and plan: Chronic wound with worsening a wound culture demonstrated MRSA although this is probably unreliable the wounds actually does not appear infected at the time of my evaluation. IV vancomycin for now dose per pharmacy Wound care evaluation and consensus decision on possible wound VAC that might help with healing Patient lives in [facility] and resources for wound care management need to be addressed Per Wound Care Continue IV antibiotics while in patient, and recommend discharge on oral antibiotic until f/u at wound care Dressing: I applied new hydrofera blue dressing with bordered foam today until we can proceed with wound vac. Recommend proceed with wound vac placement - if unable to procure before discharge, switch to hydrofera blue foam covered with foam dressing QOD Discussed option for HBO therapy - likely will be difficult due to transportation from [facility]. Patient's family will consider. Consider referral to ID at f/u F/u as planned at wound clinic next week Tuesday Type 2 diabetes on Ozempic monotherapy Sliding scale insulin for hyperglycemia if needed DVT prophylaxis Lovenox Full code blue 35 minutes were required in the management of this patient for admission Discharge Providers Provider Date of admission: 08/07/24 16:21 Discharge Date: 08/09/24 Primary care physician: Irving Dominguez MD Consults: 08/07/24 16:36 Consult to Inpatient Wound Care Nurse Routine Comment: Reason for consultation: wound vac evaluation on-healing Has provider been notified: No Consult to Wound Care Routine Comment: Consulting Provider: Pranay Wound Care Discharge provider: Ilan Wu MD Exam Vital Signs (past 8 hours): - 08/09/24 08:00 Temperature 97.2 F L Pulse Rate 86 Respiratory Rate 18 Blood Pressure 153/78 H Pulse Oximetry 95 Oxygen Flow Rate 0 Fraction of Inspired Oxygen 21 SaO2/FiO2 Ratio 466 Oxygen Delivery Method Room Air Oxygen Flow Rate 0 Objective Labs 08/07/24 13:20 08/08/24 16:20 Labs: Laboratory Results - last 24 hr 08/08/24 16:20 Sodium 137 Potassium 4.6 Chloride 106 Carbon Dioxide 18 L BUN 55 H Creatinine 2.26 H Estimated GFR 29 L BUN/Creatinine Ratio 24.3 H Glucose 185 H Calcium 9.1 Total Bilirubin 0.5 AST 33 ALT 37 Alkaline Phosphatase 73 Total Protein 7.9 Albumin 4.3 Globulin 3.6 Albumin/Globulin Ratio 1.2 PFSH Medical History Foot pain, left Diabetes mellitus type 2, uncontrolled Peripheral vascular disease Surgical History History of tonsillectomy Social History household members: spouse Smoking Status: Former smoker alcohol intake: former Discharge Plan Discharge Plan Patient Disposition: Home Discharge orders & Medications Prescriptions: New linezolid [Zyvox] 600 mg tablet 600 mg PO BID Qty: 1 0RF Continued Vitamin B-12 daily 1,000 mcg PO DAILY tamsulosin 0.4 mg capsule 0.4 mg PO DAILY Qty: 90 1RF Rx Instructions: Take one capsule daily with dinner. metoprolol tartrate 25 mg tablet 25 mg PO BID Qty: 90 1RF Rx Instructions: Patient to take one half tablet twice daily. Check and record blood pressures. Disabled Parking Permit kit 1 ea DAILY Ozempic 0.25 mg or 0.5 mg (2 mg/3 mL) Pen Injector 0.5 mg SUBCUT QWEEK albuterol sulfate 90 mcg/actuation HFA aerosol inhaler 2 puff inhalation Q4-6H PRN (Reason: Shortness Of Breath Or Wheezing) gabapentin 300 mg capsule See Rx Instructions PO BEDTIME PRN (Reason: Pain, Mild) Rx Instructions: orally bedtime PRN; Take one to two capsules before bed for nerve pain mometasone 220 mcg/ actuation (120) aerosol powdr breath activated 1 inh inhalation BID tiotropium-olodaterol 2.5-2.5 mcg/actuation mist 2 puff inhalation DAILY apixaban 2.5 mg tablet 2.5 mg PO BID Qty: 180 0RF furosemide 20 mg tablet 20 mg PO Q OTHER DAY Qty: 45 0RF montelukast 10 mg tablet 10 mg PO DAILY Qty: 90 1RF omeprazole 20 mg capsule,delayed release(DR/EC) 20 mg PO DAILY Qty: 90 3RF rosuvastatin 10 mg tablet 10 mg PO DAILY Follow up/Referrals: Irving Dominguez MD [Primary Care Provider] - Visit Report/Discharge Packet Stand Alone Forms: Patient Portal/API, Stroke Signs & Symptoms Discharge Data Primary Care Provider: Irving Dominguez Attending Provider: Ilan Wu Admit Date/Time: 08/07/24 16:21
--- NOTE | 2024-08-09 15:46 | PC.NURSE ---
Pt sitting in chair most day. Denies discomfort. wound vac discontinued intact and new dsg placed as directed HOme instructions given Pt escorted by staff via W/C to waiting vehicle in stable condition.
== END 2024-08-09 15:55 | disposition home or self-care (01) ==
LOC: ED 15:22 → AC 16:21
PROVIDERS: Emergency Medicine; Admitting Provider Internal Medicine; Emergency Provider Student in an Organized Health Care Education/Training Program; PCP Family Medicine; Visit Provider Internal Medicine
DX: E11.622 Type 2 diabetes mellitus with other skin ulcer (principal); L97.819 Non-pressure chronic ulcer of other part of right lower leg with unspecified severity; I73.9 Peripheral vascular disease, unspecified; Z87.891 Personal history of nicotine dependence; Z89.511 Acquired absence of right leg below knee; Z89.512 Acquired absence of left leg below knee; Z79.84 Long term (current) use of oral hypoglycemic drugs
CPT/HCPCS: 36415; 80053; 82962; 83036; 85025; 87040; 87070; 87205; 94640; 96365; 96366; 99283; 99284; G0378; J1815; J3370

== ENCOUNTER → 2024-08-07 14:36 | Outpatient (CLI) | payer MEDICARE, OTHER, SELFPAY | PROVIDERS: PCP Family Medicine; Referring Provider Family Medicine; Visit Provider Physician Assistant | DX: E11.621 Type 2 diabetes mellitus with foot ulcer (principal); L97.812 Non-pressure chronic ulcer of other part of right lower leg with fat layer exposed | CPT/HCPCS: 99213 ==

== ENCOUNTER → 2024-08-14 14:04 | Outpatient (CLI) | payer MEDICARE, OTHER, SELFPAY ==
[2024-08-07 17:06] VITALS: BMI 30.4
== END ==
LOC: WC 14:06
PROVIDERS: PCP Family Medicine; Referring Provider Family Medicine; Visit Provider Surgery
DX: E11.622 Type 2 diabetes mellitus with other skin ulcer (principal); L97.812 Non-pressure chronic ulcer of other part of right lower leg with fat layer exposed; I73.9 Peripheral vascular disease, unspecified; M79.604 Pain in right leg; Z79.01 Long term (current) use of anticoagulants
CPT/HCPCS: 11042

== ENCOUNTER → 2024-08-21 12:49 | Outpatient (CLI) | payer MEDICARE, OTHER, SELFPAY ==
[2024-08-07 17:06] VITALS: BMI 30.4
== END ==
LOC: WC 12:53
PROVIDERS: PCP Family Medicine; Referring Provider Family Medicine; Visit Provider Surgery
DX: E11.622 Type 2 diabetes mellitus with other skin ulcer (principal); L97.812 Non-pressure chronic ulcer of other part of right lower leg with fat layer exposed; I73.9 Peripheral vascular disease, unspecified
CPT/HCPCS: 11042; 97607

== ENCOUNTER → 2024-08-23 13:39 | Outpatient (CLI) | payer MEDICARE, OTHER, SELFPAY ==
[2024-08-07 17:06] VITALS: BMI 30.4
== END ==
LOC: WC 13:41
PROVIDERS: PCP Family Medicine; Referring Provider Family Medicine; Visit Provider Surgery
DX: E11.621 Type 2 diabetes mellitus with foot ulcer (principal); L97.812 Non-pressure chronic ulcer of other part of right lower leg with fat layer exposed
CPT/HCPCS: 97607

== ENCOUNTER → 2024-08-30 09:50 | Outpatient (CLI) | payer MEDICARE, OTHER, SELFPAY ==
[2024-08-07 17:06] VITALS: BMI 30.4
== END ==
LOC: WC 09:51
PROVIDERS: PCP Family Medicine; Referring Provider Family Medicine; Visit Provider Surgery
DX: E11.622 Type 2 diabetes mellitus with other skin ulcer (principal); L97.812 Non-pressure chronic ulcer of other part of right lower leg with fat layer exposed; M86.171 Other acute osteomyelitis, right ankle and foot; I73.9 Peripheral vascular disease, unspecified; Z89.511 Acquired absence of right leg below knee; I48.91 Unspecified atrial fibrillation; M13.89 Other specified arthritis, multiple sites; I25.10 Atherosclerotic heart disease of native coronary artery without angina pectoris; E11.22 Type 2 diabetes mellitus with diabetic chronic kidney disease; N18.9 Chronic kidney disease, unspecified
CPT/HCPCS: 11042; 87070; 87075; 87205; 97607

== ENCOUNTER → 2024-09-03 13:54 | Outpatient (CLI) | payer MEDICARE, OTHER, SELFPAY ==
[2024-08-07 17:06] VITALS: BMI 30.4
[2024-09-03 19:26] LABS: Add Manual Diff / Slide Review NO; Basophils Absolute Auto 0 /uL (0-100); Basophils Percent Auto 0.7 % (0-2); Eosinophils Absolute Auto 200 /uL (0-450); Hematocrit 30.6 % (41-53); Hemoglobin 10.4 g/dL (13.5-17.5); Lymphocytes Absolute Auto 1100 /uL (1100-4500); Lymphocytes Percent Auto 16.4 % (25-40); Mean Corpuscular Hemoglobin 32.3 PG (26-34); Mean Corpuscular Volume 94.8 fL (80-100); Monocytes Absolute Auto 600 /uL (0-900); Monocytes Percent Auto 9.3 % (3-14); Neutrophils Absolute Auto 4800 /uL (1500-7000); Neutrophils Percent Auto 70.6 % (50-75); Platelet Count 141 X10^3/uL (150-400); Red Blood Cell Count 3.23 X10^6/uL (4.5-5.9); Red Cell Distribution Width 14.1 % (11.6-14.8); White Blood Cell Count 6.8 X10^3/uL (4.5-11.0)
[2024-09-03 19:40] LABS: Alanine Aminotransferase 28 IU/L (<50); Albumin 3.7 g/dL (3.5-5.0); Albumin Globulin Ratio 1.3 (1.0-2.8); Alkaline Phosphatase 84 U/L (38-126); Aspartate Aminotransferase 29 IU/L (17-59); Bilirubin Total 0.5 mg/dL (0.2-1.3); Blood Urea Nitrogen 44 mg/dL (9-20); Calcium 8.3 mg/dL (8.4-10.2); Carbon Dioxide 24 mmol/L (22-32); Chloride 104 mmol/L (98-107); Estimated Glomerular Filt Rate 37 mL/min (>60); Globulin 2.8 g/dL (1.7-4.1); Glucose 164 mg/dL (70-99); HEMOLYSIS < 15 (0-50); Potassium 4.9 mmol/L (3.4-5.1); Sodium 137 mmol/L (137-145); Total Protein 6.5 g/dL (6.3-8.2)
== END ==
PROVIDERS: PCP Family Medicine; Visit Provider Specialist
DX: I12.9 Hypertensive chronic kidney disease with stage 1 through stage 4 chronic kidney disease, or unspecified chronic kidney disease; N17.0 Acute kidney failure with tubular necrosis; N18.6 End stage renal disease; D63.1 Anemia in chronic kidney disease; E83.9 Disorder of mineral metabolism, unspecified; E78.2 Mixed hyperlipidemia
CPT/HCPCS: 80053; 85025

== ENCOUNTER → 2024-09-06 09:24 | Outpatient (CLI) | payer MEDICARE, OTHER, SELFPAY ==
[2024-08-07 17:06] VITALS: BMI 30.4
== END ==
PROVIDERS: PCP Family Medicine; Referring Provider Family Medicine; Visit Provider Surgery
DX: E11.622 Type 2 diabetes mellitus with other skin ulcer (principal); L97.812 Non-pressure chronic ulcer of other part of right lower leg with fat layer exposed; I73.9 Peripheral vascular disease, unspecified; Z89.511 Acquired absence of right leg below knee; I48.91 Unspecified atrial fibrillation; I25.10 Atherosclerotic heart disease of native coronary artery without angina pectoris
CPT/HCPCS: 11042; 97607

== ENCOUNTER → 2024-09-06 10:06 | Outpatient (CLI) | payer MEDICARE, OTHER, SELFPAY ==
[2024-08-07 17:06] VITALS: BMI 30.4
--- NOTE | 2024-09-06 10:09 | DI.RAD.S_ITS ---
PROCEDURE: XR CHEST 2V INDICATIONS: At risk for pneumonia. Cough. TECHNIQUE: 2 views of the chest were acquired. COMPARISON: [facility] ([facility]), CR, XR CHEST 2V, 04/27/2023, 14:23. FINDINGS: Surgical changes and devices: None. Lungs and pleura: Prominence of the upper lobe vascularity and there is diffuse, widespread bilateral interstitial opacities. Mild blunting of the costophrenic angles. No pneumothorax. Mediastinum: Mediastinal contours are normal. Heart size is enlarged. Bones and chest wall: No suspicious bony abnormalities. Soft tissues appear unremarkable. IMPRESSION: Cephalization of the lung vessels with interstitial opacities, small effusions and cardiomegaly suspicious for CHF/fluid overload and/or atypical pneumonia. Recommend clinical correlation and follow-up. Dictated by: Jitendra MA Interpreted: Porsche Meehan MD on 09/06/2024 at 10:48 Approved by: Porsche Meehan M.D. on 09/06/2024 at 21:52
== END ==
PROVIDERS: PCP Family Medicine; Referring Provider Family Medicine; Visit Provider Physician Assistant
DX: I51.7 Cardiomegaly (principal); R05.9 Cough, unspecified
CPT/HCPCS: 71046

== ENCOUNTER → 2024-09-12 08:34 | Outpatient (CLI) | payer MEDICARE, OTHER, SELFPAY ==
--- NOTE | 2024-09-12 08:36 | DI.US.S_ITS ---
PROCEDURE: US ARTERIAL DUPLEX LE RT INDICATIONS: non-healing ulcer on right leg stump, BKA TECHNIQUE: Color and pulse Doppler interrogation was performed of the right lower extremity lower extremity arterial system, with image documentation. COMPARISON: None. FINDINGS: Common femoral artery: 150 cm/sec, with triphasic flow. Deep femoral artery: 82 cm/sec, with triphasic flow. Proximal superficial femoral artery: 140 cm/sec, with triphasic flow. Mid superficial femoral artery: 19 cm/sec, with monophasic flow. Distal superficial femoral artery: 87 through 37 cm/sec, with monophasic flow. Popliteal artery: 20 cm/sec, with monophasic flow. Posterior tibial artery: 20 cm/sec, with monophasic flow. Price-scale imaging description: Extensive atherosclerotic plaque. IMPRESSION: Suspected hemodynamically significant stenosis within the superficial femoral artery, as there is a transition from triphasic to monophasic flow proximally. Dictated by: Guillermo Mcneal M.D. on 09/12/2024 at 15:42 Approved by: Guillermo Mcneal M.D. on 09/12/2024 at 15:43
== END ==
PROVIDERS: PCP Family Medicine; Referring Provider Surgery; Visit Provider Surgery
DX: E11.622 Type 2 diabetes mellitus with other skin ulcer (principal); I70.201 Unspecified atherosclerosis of native arteries of extremities, right leg
CPT/HCPCS: 93926

== ENCOUNTER → 2024-09-12 09:49 | Outpatient (CLI) | payer MEDICARE, OTHER, SELFPAY | PROVIDERS: PCP Family Medicine; Referring Provider Family Medicine; Visit Provider Surgery | DX: E11.622 Type 2 diabetes mellitus with other skin ulcer (principal); L97.815 Non-pressure chronic ulcer of other part of right lower leg with muscle involvement without evidence of necrosis; R23.4 Changes in skin texture; I73.9 Peripheral vascular disease, unspecified; L98.8 Other specified disorders of the skin and subcutaneous tissue; Z89.511 Acquired absence of right leg below knee | CPT/HCPCS: 15271; 99213; Q4196 ==

== ENCOUNTER → 2024-09-19 08:57 | Outpatient (CLI) | payer MEDICARE, OTHER, SELFPAY | PROVIDERS: PCP Family Medicine; Referring Provider Family Medicine; Visit Provider Surgery | DX: E11.622 Type 2 diabetes mellitus with other skin ulcer (principal); L97.812 Non-pressure chronic ulcer of other part of right lower leg with fat layer exposed; I73.9 Peripheral vascular disease, unspecified | CPT/HCPCS: 15271; Q4196 ==

== ENCOUNTER → 2024-09-26 09:03 | Outpatient (CLI) | payer MEDICARE, OTHER, SELFPAY | PROVIDERS: PCP Family Medicine; Referring Provider Family Medicine; Visit Provider Surgery | DX: E11.622 Type 2 diabetes mellitus with other skin ulcer (principal); L97.815 Non-pressure chronic ulcer of other part of right lower leg with muscle involvement without evidence of necrosis; I73.9 Peripheral vascular disease, unspecified | CPT/HCPCS: 15271; Q4196 ==

== ENCOUNTER → 2024-10-02 09:52 | Outpatient (CLI) | payer MEDICARE, OTHER, SELFPAY | LOC: WC 09:55 | PROVIDERS: PCP Family Medicine; Referring Provider Family Medicine; Visit Provider Surgery | DX: E11.622 Type 2 diabetes mellitus with other skin ulcer (principal); L97.815 Non-pressure chronic ulcer of other part of right lower leg with muscle involvement without evidence of necrosis; R23.4 Changes in skin texture; I96 Gangrene, not elsewhere classified; I73.9 Peripheral vascular disease, unspecified; Z79.01 Long term (current) use of anticoagulants | CPT/HCPCS: 11042; 97607 ==

== ENCOUNTER → 2024-10-09 09:55 | Outpatient (CLI) | payer MEDICARE, OTHER, SELFPAY | LOC: WC 09:57 | PROVIDERS: PCP Family Medicine; Referring Provider Family Medicine; Visit Provider Surgery | DX: E11.622 Type 2 diabetes mellitus with other skin ulcer (principal); L97.815 Non-pressure chronic ulcer of other part of right lower leg with muscle involvement without evidence of necrosis; I73.9 Peripheral vascular disease, unspecified; Z79.01 Long term (current) use of anticoagulants; Z89.511 Acquired absence of right leg below knee | CPT/HCPCS: 11042; 97607; 99213 ==

== ENCOUNTER → 2024-10-16 09:52 | Outpatient (CLI) | payer MEDICARE, OTHER, SELFPAY | LOC: WC 09:54 | PROVIDERS: PCP Family Medicine; Referring Provider Family Medicine; Visit Provider Surgery | DX: E11.622 Type 2 diabetes mellitus with other skin ulcer (principal); L97.812 Non-pressure chronic ulcer of other part of right lower leg with fat layer exposed; I73.9 Peripheral vascular disease, unspecified; Z79.01 Long term (current) use of anticoagulants; Z89.511 Acquired absence of right leg below knee | CPT/HCPCS: 11042; 97607 ==

== ENCOUNTER → 2024-10-22 13:05 | Outpatient (CLI) | payer MEDICARE, OTHER, SELFPAY | LOC: WC 11-21 13:06 | PROVIDERS: PCP Family Medicine; Referring Provider Family Medicine; Visit Provider Surgery | DX: E11.622 Type 2 diabetes mellitus with other skin ulcer (principal); L97.815 Non-pressure chronic ulcer of other part of right lower leg with muscle involvement without evidence of necrosis | CPT/HCPCS: 99213 ==

== ENCOUNTER → 2024-10-30 15:47 | Outpatient (CLI) | payer MEDICARE, OTHER, SELFPAY | LOC: WC 15:48 | PROVIDERS: PCP Family Medicine; Referring Provider Family Medicine; Visit Provider Surgery | DX: E11.622 Type 2 diabetes mellitus with other skin ulcer (principal); L97.815 Non-pressure chronic ulcer of other part of right lower leg with muscle involvement without evidence of necrosis; I73.9 Peripheral vascular disease, unspecified; R60.0 Localized edema; Z79.01 Long term (current) use of anticoagulants | CPT/HCPCS: 11042 ==

== ENCOUNTER → 2024-11-06 12:20 | Outpatient (CLI) | payer MEDICARE, OTHER, SELFPAY | PROVIDERS: PCP Family Medicine; Referring Provider Family Medicine; Visit Provider Surgery | DX: E11.622 Type 2 diabetes mellitus with other skin ulcer (principal); L97.815 Non-pressure chronic ulcer of other part of right lower leg with muscle involvement without evidence of necrosis; I73.9 Peripheral vascular disease, unspecified; R60.0 Localized edema; Z79.01 Long term (current) use of anticoagulants; Z89.511 Acquired absence of right leg below knee | CPT/HCPCS: 11042; 99213 ==

== ENCOUNTER → 2024-11-13 14:14 | Outpatient (CLI) | payer MEDICARE, OTHER, SELFPAY | LOC: WC 14:32 | PROVIDERS: PCP Family Medicine; Referring Provider Family Medicine; Visit Provider Surgery | DX: E11.622 Type 2 diabetes mellitus with other skin ulcer (principal); L97.815 Non-pressure chronic ulcer of other part of right lower leg with muscle involvement without evidence of necrosis; I73.9 Peripheral vascular disease, unspecified; R60.0 Localized edema; Z79.01 Long term (current) use of anticoagulants | CPT/HCPCS: 11042 ==

== ENCOUNTER → 2024-11-20 11:28 | Outpatient (CLI) | payer MEDICARE, OTHER, SELFPAY | LOC: WC 11:30 | PROVIDERS: PCP Family Medicine; Referring Provider Family Medicine; Visit Provider Surgery | DX: E11.622 Type 2 diabetes mellitus with other skin ulcer (principal); L97.815 Non-pressure chronic ulcer of other part of right lower leg with muscle involvement without evidence of necrosis; I73.9 Peripheral vascular disease, unspecified; Z89.511 Acquired absence of right leg below knee; Z79.84 Long term (current) use of oral hypoglycemic drugs; Z79.85 Long-term (current) use of injectable non-insulin antidiabetic drugs | CPT/HCPCS: 11042 ==

== ENCOUNTER → 2024-11-27 11:35 | Outpatient (CLI) | payer MEDICARE, OTHER, SELFPAY | LOC: WC 11:36 | PROVIDERS: PCP Family Medicine; Referring Provider Family Medicine; Visit Provider Surgery | DX: E11.622 Type 2 diabetes mellitus with other skin ulcer (principal); L97.815 Non-pressure chronic ulcer of other part of right lower leg with muscle involvement without evidence of necrosis; L97.812 Non-pressure chronic ulcer of other part of right lower leg with fat layer exposed; L08.89 Other specified local infections of the skin and subcutaneous tissue; T87.89 Other complications of amputation stump; E11.628 Type 2 diabetes mellitus with other skin complications; I73.9 Peripheral vascular disease, unspecified; I12.9 Hypertensive chronic kidney disease with stage 1 through stage 4 chronic kidney disease, or unspecified chronic kidney disease; N18.9 Chronic kidney disease, unspecified; I48.91 Unspecified atrial fibrillation; Z79.01 Long term (current) use of anticoagulants; D64.9 Anemia, unspecified; E78.5 Hyperlipidemia, unspecified; J44.9 Chronic obstructive pulmonary disease, unspecified; I25.10 Atherosclerotic heart disease of native coronary artery without angina pectoris; Z79.84 Long term (current) use of oral hypoglycemic drugs; Z89.511 Acquired absence of right leg below knee | CPT/HCPCS: 11042; 87070; 87075; 87077; 87186; 87205; 99213 ==

== ENCOUNTER → 2024-12-25 11:18 | Outpatient (CLI) | payer MEDICARE, OTHER, SELFPAY | LOC: WC 11:20 | PROVIDERS: PCP Family Medicine; Referring Provider Family Medicine; Visit Provider Surgery | DX: E11.622 Type 2 diabetes mellitus with other skin ulcer (principal); L97.815 Non-pressure chronic ulcer of other part of right lower leg with muscle involvement without evidence of necrosis; T87.89 Other complications of amputation stump; Z89.511 Acquired absence of right leg below knee; E11.51 Type 2 diabetes mellitus with diabetic peripheral angiopathy without gangrene; I48.91 Unspecified atrial fibrillation; I10 Essential (primary) hypertension; Z79.01 Long term (current) use of anticoagulants; I25.10 Atherosclerotic heart disease of native coronary artery without angina pectoris; E11.22 Type 2 diabetes mellitus with diabetic chronic kidney disease; N18.9 Chronic kidney disease, unspecified; Z79.84 Long term (current) use of oral hypoglycemic drugs; J44.9 Chronic obstructive pulmonary disease, unspecified; D64.9 Anemia, unspecified; K21.9 Gastro-esophageal reflux disease without esophagitis; M13.80 Other specified arthritis, unspecified site | CPT/HCPCS: 11042 ==

== ENCOUNTER → 2025-01-09 11:20 | Outpatient (CLI) | payer MEDICARE, OTHER, SELFPAY | PROVIDERS: PCP Family Medicine; Referring Provider Family Medicine; Visit Provider Surgery | DX: E11.622 Type 2 diabetes mellitus with other skin ulcer (principal); L97.815 Non-pressure chronic ulcer of other part of right lower leg with muscle involvement without evidence of necrosis; T87.89 Other complications of amputation stump; I73.9 Peripheral vascular disease, unspecified | CPT/HCPCS: 15271; 99213; Q4199 ==

== ENCOUNTER → 2025-01-15 11:37 | Outpatient (CLI) | payer MEDICARE, OTHER, SELFPAY | PROVIDERS: PCP Family Medicine; Referring Provider Family Medicine; Visit Provider Surgery | DX: E11.622 Type 2 diabetes mellitus with other skin ulcer (principal); L97.812 Non-pressure chronic ulcer of other part of right lower leg with fat layer exposed; I73.9 Peripheral vascular disease, unspecified; R60.0 Localized edema | CPT/HCPCS: 15271; Q4199 ==

== ENCOUNTER → 2025-01-22 11:06 | Outpatient (CLI) | payer MEDICARE, OTHER, SELFPAY | LOC: WC 11:07 | PROVIDERS: PCP Family Medicine; Referring Provider Family Medicine; Visit Provider Surgery | DX: E11.622 Type 2 diabetes mellitus with other skin ulcer (principal); T87.89 Other complications of amputation stump; L97.812 Non-pressure chronic ulcer of other part of right lower leg with fat layer exposed; I73.9 Peripheral vascular disease, unspecified; R60.0 Localized edema | CPT/HCPCS: 15271; Q4199 ==

== ENCOUNTER → 2025-01-29 12:59 | Outpatient (CLI) | payer MEDICARE, OTHER, SELFPAY | LOC: WC 13:23 | PROVIDERS: PCP Family Medicine; Referring Provider Family Medicine; Visit Provider Surgery | DX: E11.622 Type 2 diabetes mellitus with other skin ulcer (principal); L97.815 Non-pressure chronic ulcer of other part of right lower leg with muscle involvement without evidence of necrosis; T87.89 Other complications of amputation stump; Z89.511 Acquired absence of right leg below knee; E11.51 Type 2 diabetes mellitus with diabetic peripheral angiopathy without gangrene; E11.22 Type 2 diabetes mellitus with diabetic chronic kidney disease; N18.9 Chronic kidney disease, unspecified; I48.91 Unspecified atrial fibrillation; Z79.01 Long term (current) use of anticoagulants; I25.10 Atherosclerotic heart disease of native coronary artery without angina pectoris; Z79.85 Long-term (current) use of injectable non-insulin antidiabetic drugs; M06.9 Rheumatoid arthritis, unspecified; J44.9 Chronic obstructive pulmonary disease, unspecified; K21.9 Gastro-esophageal reflux disease without esophagitis; E78.5 Hyperlipidemia, unspecified; Z88.0 Allergy status to penicillin; Z88.1 Allergy status to other antibiotic agents | CPT/HCPCS: 15271; Q4199 ==

== ENCOUNTER → 2025-02-05 12:05 | Outpatient (CLI) | payer MEDICARE, OTHER, SELFPAY | LOC: WC 12:10 | PROVIDERS: PCP Family Medicine; Referring Provider Family Medicine; Visit Provider Surgery | DX: E11.622 Type 2 diabetes mellitus with other skin ulcer (principal); L97.815 Non-pressure chronic ulcer of other part of right lower leg with muscle involvement without evidence of necrosis; R60.0 Localized edema; T87.89 Other complications of amputation stump; Z89.511 Acquired absence of right leg below knee; E11.51 Type 2 diabetes mellitus with diabetic peripheral angiopathy without gangrene; E11.22 Type 2 diabetes mellitus with diabetic chronic kidney disease; I12.9 Hypertensive chronic kidney disease with stage 1 through stage 4 chronic kidney disease, or unspecified chronic kidney disease; N18.9 Chronic kidney disease, unspecified; I25.10 Atherosclerotic heart disease of native coronary artery without angina pectoris; I48.91 Unspecified atrial fibrillation; Z79.01 Long term (current) use of anticoagulants; Z87.891 Personal history of nicotine dependence; Z79.85 Long-term (current) use of injectable non-insulin antidiabetic drugs; M19.90 Unspecified osteoarthritis, unspecified site; Z88.0 Allergy status to penicillin; Z88.1 Allergy status to other antibiotic agents | CPT/HCPCS: 15271; 99213; Q4199 ==

== ENCOUNTER → 2025-02-12 11:12 | Outpatient (CLI) | payer MEDICARE, OTHER, SELFPAY | LOC: WC 11:15 | PROVIDERS: PCP Family Medicine; Referring Provider Internal Medicine; Visit Provider Surgery | DX: L97.812 Non-pressure chronic ulcer of other part of right lower leg with fat layer exposed (principal); E11.622 Type 2 diabetes mellitus with other skin ulcer; R60.0 Localized edema; I73.9 Peripheral vascular disease, unspecified; Z79.01 Long term (current) use of anticoagulants; Z89.511 Acquired absence of right leg below knee | CPT/HCPCS: 15271; Q4199 ==

== ENCOUNTER → 2025-02-19 11:31 | Outpatient (CLI) | payer MEDICARE, OTHER, SELFPAY | LOC: WC 11:32 | PROVIDERS: PCP Family Medicine; Referring Provider Family Medicine; Visit Provider Surgery | DX: E11.622 Type 2 diabetes mellitus with other skin ulcer (principal); L97.812 Non-pressure chronic ulcer of other part of right lower leg with fat layer exposed; T87.89 Other complications of amputation stump; I73.9 Peripheral vascular disease, unspecified | CPT/HCPCS: 15271; Q4199 ==

== ENCOUNTER → 2025-02-20 09:18 | Outpatient (CLI) | payer MEDICARE, OTHER, SELFPAY ==
[2025-02-20 18:47] LABS: Add Manual Diff / Slide Review NO; Hematocrit 32.2 % (41-53); Hemoglobin 10.7 g/dL (13.5-17.5); Lymphocytes Absolute Auto 1300 /uL (1100-4500); Mean Corpuscular HGB Conc 33.3 % (30-36); Mean Corpuscular Hemoglobin 30.6 PG (26-34); Mean Corpuscular Volume 92.0 fL (80-100); Platelet Count 163 X10^3/uL (150-400)
[2025-02-20 19:02] LABS: Blood Urea Nitrogen 45 mg/dL (9-20); Calcium 8.8 mg/dL (8.4-10.2); Carbon Dioxide 23 mmol/L (22-32); Chloride 110 mmol/L (98-107); Cholesterol 95 mg/dL (140-199); Estimated Glomerular Filt Rate 40 mL/min (>60); Glucose 139 mg/dL (70-99); HDL Cholesterol 35 mg/dL (40-60); HEMOLYSIS < 15 (0-50); Potassium 4.6 mmol/L (3.4-5.1); Sodium 139 mmol/L (137-145); Triglycerides 62 mg/dL (35-150)
[2025-02-20 19:05] LABS: Hemoglobin A1C% w Est Avg Glu 7.0 % (4.0-6.0)
[2025-02-20 19:11] LABS: NT-proBNP (BNP-Adult 18+) 812 pg/mL (<450)
[2025-02-20 19:20] LABS: Microalbumi Creatinin Ratio Ur 61.0 ug/mg CR (<30)
== END ==
PROVIDERS: Physician Assistant Medical; PCP Family Medicine; Visit Provider Family Medicine
DX: N18.6 End stage renal disease (principal); E11.51 Type 2 diabetes mellitus with diabetic peripheral angiopathy without gangrene; R06.2 Wheezing; Z99.2 Dependence on renal dialysis; D63.1 Anemia in chronic kidney disease; I25.810 Atherosclerosis of coronary artery bypass graft(s) without angina pectoris; I50.9 Heart failure, unspecified; E78.2 Mixed hyperlipidemia
CPT/HCPCS: 80048; 80061; 82043; 82570; 83036; 83880; 85025

== ENCOUNTER → 2025-02-26 11:58 | Outpatient (CLI) | payer MEDICARE, OTHER, SELFPAY | PROVIDERS: PCP Family Medicine; Referring Provider Family Medicine; Visit Provider Surgery | DX: L97.812 Non-pressure chronic ulcer of other part of right lower leg with fat layer exposed (principal); E11.622 Type 2 diabetes mellitus with other skin ulcer; I73.9 Peripheral vascular disease, unspecified; R60.0 Localized edema; Z79.01 Long term (current) use of anticoagulants | CPT/HCPCS: 11042 ==

== ENCOUNTER → 2025-03-05 13:32 | Outpatient (CLI) | payer MEDICARE, OTHER, SELFPAY | LOC: WC 13:33 | PROVIDERS: PCP Family Medicine; Referring Provider Family Medicine; Visit Provider Surgery | DX: E11.622 Type 2 diabetes mellitus with other skin ulcer (principal); L97.812 Non-pressure chronic ulcer of other part of right lower leg with fat layer exposed; I73.9 Peripheral vascular disease, unspecified; R60.0 Localized edema; Z89.511 Acquired absence of right leg below knee | CPT/HCPCS: 11042; 99213 ==

== ENCOUNTER → 2025-03-20 11:24 | Outpatient (CLI) | payer MEDICARE, OTHER, SELFPAY ==
--- OUTSIDE RECORDS SUMMARY | 2025-03-22 16:02 | XMS_ITS | Clinical Summary ---
Author Organization [facility] Address [address] [place] [id number] Phone Care Team Providers Care Clerk Of Works Name Role Phone Irving Dominguez MD Primary Care Provider [phone] Allergies Active Allergy Reactions Criticality Noted Date Comments Penicillins Dermatitis,Hives,Cuong h Medium 12/10/2010 Sulfamethoxazole-Trimet hoprim Other (see comments) High 12/08/2022 Kidney failure Other Reaction(s): Other (See Comments) Kidney failure Medications albuterol HFA (PROVENTIL HFA) 108 (90 Base) MCG/ACT inhaler Inhale 1 puff if needed 3 Active clopidogrel (PLAVIX) 75 MG tablet Take 75 mg by mouth 1 (one) time each day 9 Active gabapentin (NEURONTIN) 100 MG capsule Take 100-200 mg by mouth in the morning and 100-200 mg in the evening. Active metoprolol tartrate (LOPRESSOR) 50 MG tablet Take 25 mg by mouth 1 (one) time each day 0 Active rosuvastatin (CRESTOR) 40 MG tablet Take 10 mg by mouth 1 (one) time each day 3 Active cyanocobalamin (VITAMIN B-12) 1000 MCG tablet Take 1,000 mcg by mouth 1 (one) time each day Active torsemide (DEMADEX) 20 MG tablet Take 20 mg by mouth 1 (one) time each day Active omeprazole (PriLOSEC) [address] capsule Take 20 mg by mouth 1 (one) time each day Active pantoprazole (PROTONIX) 40 MG EC tablet Take 40 mg by mouth 1 (one) time each day before breakfast Active ascorbic acid (VITAMIN C) 250 MG tablet Take 250 mg by mouth in the morning. Active omega-3 (FISH OIL) 300 MG capsule Take 300 mg by mouth 1 (one) time each day Active Umeclidinium-Vi lanterol (Anoro Ellipta) 62.5-25 MCG/ACT aerosol powder Inhale 1 puff in the morning. 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 Alcohol Use Standard Drinks/Week Comments Not Currently 0 (1 standard drink = 0.6 oz pur e alcohol) Sex and Gender Information Value Date Recorded Sex Assigned at Not on file Legal Sex Male 10:13 AM MDT Gender Identity Not on file Sexual Orientation Not on file Last Filed Vital Signs Vital Sign Reading Time Taken Comments Blood Pressure 152/60 09/12/2024 1:14 PM PDT Pulse 73 09/12/2024 1:14 PM PDT Temperature - - Respiratory Rate - - Oxygen Saturation 97% 09/12/2024 1:14 PM PDT Inhaled Oxygen Concentration - - Weight 97 kg (213 lb 13.5 oz) 09/12/2024 1:14 PM PDT Height 172.7 cm (5' 8) 09/12/2024 1:14 PM PDT Body Mass Index 32.52 09/12/2024 1:14 PM PDT Plan of Treatment Health Maintenance Due Date Last Done Comments Diabetic Foot Exam 1955 Ophthalmology Exam 1955 COVID-19 Vaccine (2024-2 6 season) 2024 08/05/2021, 03/18/2021, 07/15/2020, Additional history exists Influenza Vaccine (#1) 2024 2, 01/30/2021, 02/24/2020, Additional history exists Pneumococcal PPSV23/PCV13 65 + Years / High and Highest Risk Completed 06/24/2015, 05/06/2015, 01/30/2010 Insurance MEDICARE PM INTERFACED INSURANCE PM INTERFACED INSURANCE PM INTERFACED INSURANCE PM INTERFACED INSURANCE PM INTERFACED INSURANCE Care Teams Clerk Of Works Relationship Specialty Start Date End Date Irving Dominguez MD [facility] [address] [address] PCP - General Family Medicine 03/22/23
--- OUTSIDE RECORDS SUMMARY | 2025-03-22 16:02 | XMS_ITS | Encounter Summary ---
Author Organization [facility] Address [address] [place] [address] Care Team Providers Care Emergency Department Physician Name Role Phone Pcp, None Selected Primary Care Provider Unavail able Encounter Details Date Type Department Care Team (Late st Contact Info) Description 04/14/2020 Orders Only [facility] Cardiology [address], [place] [address] Joyce Zamudio MA Longstanding persistent atrial fibrillation (CMS/HCC); Lightheadedness Social History Tobacco Use Types Packs/Day Years Used Date Smoking Tobacco: Former Cigarettes 1 40 1 960 - 2000 Smokeless Tobacco: Never Alcohol Use Standard Drinks/Week Comments Not Currently 0 (1 standard drink = 0.6 oz pur e alcohol) Sex and Gender Information Value Date Recorded Sex Assigned at Not on file Legal Sex Male 2:51 PM PDT Gender Identity Not on file Sexual Orientation Not on file documented as of this encounter Plan of Treatment Not on file documented as of this encounter Procedures Procedure Name Priority Date/Time Associated Diagnosis Comments MONITOR - 7 DAY Routine 04/14/2020 7:42 AM PST Longstanding persistent atrial fibrillation (CMS/HCC) Lightheadedness documented in this encounter Results * ZIO Patch - 7 Day Placed During Visit (04/14/2020 7:42 AM PST) Hermes Alcaraz MD CV CARDIAC SERVICES PROCEDUR ES Final Result documented in this encounter Visit Diagnoses Diagnosis Longstanding persistent atrial fibrillation (CMS/HCC) Lightheadedness Dizziness and giddiness documented in this encounter Care Teams Emergency Department Physician Relationship Specialty Start Date End Date Pcp, None Selected PCP - General 08/16/24 documented as of this encounter
--- OUTSIDE RECORDS SUMMARY | 2025-03-22 16:02 | XMS_ITS | Encounter Summary ---
Author Organization [facility] Address [address] [place] [address] Care Team Providers Care Rib Builder Name Role Phone Pcp, None Selected Primary Care Provider Unavail able Reason for Visit * Reason Comments Med Refill Encounter Details Date Type Department Care Team (Late st Contact Info) Description 03/30/2021 Refill [facility] Cardiology [address], [place] [address] Hermes Alcaraz MD [address] [place] [address] [address] [place] [address] Old cerebrovascular accident (CVA) without late effect Social History Tobacco Use Types Packs/Day Years [...] on file documented as of this encounter Visit Diagnoses Diagnosis Old 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
--- OUTSIDE RECORDS SUMMARY | 2025-03-22 16:02 | XMS_ITS | Encounter Summary ---
Author Organization [facility] Address [address] [place] [address] Care Team Providers Care Bat Person Name Role Phone Pcp, None Selected Primary Care Provider Unavail able Encounter Details Date Type Department Care Team (Late st Contact Info) Description 06/15/2023 Orders Only [facility] Infectious Diseases [place] [address] [address] [place] [address] Denice Plummer MD [address] [place] [address] Social History Tobacco Use Types Packs/Day Years [...] documented as of this encounter Visit Diagnoses Not on filedocumented in this encounter Care Teams Bat Person Relationship Specialty Start Date End Date Pcp, None Selected PCP - General 08/16/24 documented as of this encounter
--- OUTSIDE RECORDS SUMMARY | 2025-03-22 16:02 | XMS_ITS | Encounter Summary ---
Author Organization [facility] Address [address] [place] [address] Care Team Providers Care Highway Maintenance Crew Worker Name Role Phone Pcp, None Selected Primary Care Provider Unavail able Encounter Details Date Type Department Care Team (Late st Contact Info) Description 04/28/2022 Orders Only [facility] Cardiology [address], [place] [address] Hermes Alcaraz MD [address] [place] [address] [address] [place] [address] Hyperlipidemia, unspecified hyperlipidemia type; ASHD (arteriosclerotic heart disease) Social History Tobacco Use Types Packs/Day Years [...] on file documented as of this encounter Functional Status documented as of this encounter Plan of Treatment Not on file documented as of this encounter Procedures Procedure Name Priority Date/Time Associated Diagnosis Comments COMPLETE BLOOD COUNT Routine 04/27/2022 ASHD (arteriosclerotic heart disease) LIPID PANEL Routine 04/27/2022 Hyperlipidemia, unspecified hyperlipidemia type BASIC METABOLIC PANEL Routine 04/27/2022 ASHD (arteriosclerotic heart disease) documented in this encounter Results * Basic metabolic panel (04/27/2022) Blood Venous blood / Unknown Hermes Alcaraz MD LAB BLOOD ORDERABLES Final R esult * Complete blood count (04/27/2022) Blood Venous blood / Unknown Hermes Alcaraz MD LAB BLOOD ORDERABLES Final R esult * Lipid panel (04/27/2022) Blood Venous blood / Unknown Hermes Alcaraz MD LAB BLOOD ORDERABLES Final R esult documented in this encounter Visit Diagnoses Diagnosis Hyperlipidemia, unspecified hyperlipidemia type ASHD (arteriosclerotic heart disease) Coronary atherosclerosis of unspecified type of vessel, [place] or graft documented in this encounter Care Teams Highway Maintenance Crew Worker Relationship Specialty Start Date End Date Pcp, None Selected PCP - General 08/16/24 documented as of this encounter
--- OUTSIDE RECORDS SUMMARY | 2025-03-22 16:02 | XMS_ITS | Clinical Summary ---
Author Organization [facility] [place] [facility] Address [address] [place] [address] Care Team Providers Care Engineering Laboratory Technician Name Role Phone Cristopher Randall MD Primary Care Provider Unav ailable Allergies Active Allergy Reactions Criticality Noted Date Comments Penicillins Skin: Hives Low 01/17/2017 Medications Mometasone Furoate 220 MCG/INH Inhalation AEROSOL POWDER, BREATH ACTIVATED Inhale 2 puffs by mouth 2 times a day. Active Olodaterol HCl (STRIVERDI RESPIMAT IN) Inhale 12.5 mcg by mouth 2 times a day. Two inhalations twice daily. Active RaNITidine HCl 150 MG Oral Tab Take 150 mg by mouth 2 times a day. Active MetFORMIN HCl 1000 MG Oral Tab Take 1,000 mg by mouth 2 times a day. Active Albuterol (PROVENTIL IN) Activ e Warfarin Sodium 1 MG Oral TabIndications:Chr onic atrial fibrillation (HCC),watermelon harvesting supervisor (current) use of anticoagulants Take 4 tablets (4 mg) by mouth every Tuesday, Tuesday, and Tuesday. 64 tablet 1 06/08/19 18 Active B Complex Vitamins (VITAMIN B COMPLEX OR) Take by mouth daily. Active Magnesium 200 MG Oral Tab Take 200 mg by mouth. Active Nitroglycerin 0.4 MG Sublingual SL Tab Place 0.4 mg under the tongue daily as needed. 06/06/19 19 Active Clopidogrel Bisulfate 75 MG Oral TabIndications:Pre sence of coronary artery bypass graft stent,Stenosis involving vascular device, subsequent encounter Take 1 tablet (75 mg) by mouth daily. 30 tablet 11 07/29/19 19 Active ferrous sulfate 325 (65 Fe) MG Oral Tablet Take 325 mg by mouth daily. Active aspirin 81 MG EC tablet Take 81 mg by mouth daily. Active predniSONE 1 MG tabletIndications: Panlobular emphysema (HCC) Take 2 tablets (2 mg) by mouth daily. 100 tablet 1 02/12/20 20 Active albuterol HFA 108 (90 Base) MCG/ACT inhaler Inhale 2 puffs by mouth every 4 hours as needed. Active metoprolol tartrate 50 MG tabletIndications: Coronary artery disease of [place] artery of [place] heart with stable angina pectoris Take 1 tablet (50 mg) by mouth 2 times a day. 180 tablet 3 04/08/20 20 Active lisinopril 5 MG tabletIndications: Hypertension associated with diabetes ([facility]) Take 1 tablet (5 mg) by mouth daily. 90 tablet 3 07/29/19 21 Active warfarin 5 MG tabletIndications: Atrial fibrillation, unspecified type ([facility]) TAKE (1/2) TABLET BY MOUTH ONCE DAILY ON TUESDAY, TUESDAY AND TUESDAY AND TAKE ONE TABLET BY MOUTH ONCE DAILY ON TUESDAY, TUESDAY, TUESDAY AND TUESDAY. 70 tablet 07/29/19 21 Active ipratropium-albute rol 0.5-2.5 (3) MG/3ML nebulizer solutionIndication s:Other emphysema ([facility]) USE 1 VIAL IN NEBULIZER 4 TIMES DAILY 120 mL 11 09/03/19 21 Active glimepiride 1 MG tabletIndications: Type 2 diabetes mellitus without complication, without long-term current use of insulin ([facility]) TAKE ONE-HALF TABLET BY MOUTH EVERY DAY WITH BREAKFAST 45 tablet 1 09/03/19 21 Active furosemide 20 MG tabletIndications: Cor pulmonale ([facility]) TAKE ONE TABLET BY MOUTH EVERY MORNING 90 tablet 1 09/03/19 21 Active Active Problems Problem Noted Date Diagnosed Date Aneurysm, cerebral 07/11/2020 Cor pulmonale 11/07/2019 SNHL (sensory-neural hearing loss), asymmetrical 08/20/2019 Internal carotid artery occlusion, right, old h/o CVA, frontoparietal, right, old 08/20/2019 Postural dizziness with presyncope 08/20/2019 Cyst of maxillary sinus 08/20/2019 Chronic maxillary sinusitis 07/12/2019 CAD, s/p NSTEMI, w/ stable angina 09/11/2018 DM, w/ PAD, w/ rest pain 07/10/2018 DM, w/ Angina, stent RCA Jun 2018 06/09/2018 DM, w/ Hyperlipidemia 06/09/2018 DM, w/ HTN 06/09/2018 DM, w/ PAD, BLE 08/24/2017 Atrial Fibrillation, chronic 01/18/2017 h/o Cigarette Smoking, 120 PYH 01/18/2017 Vertigo, benign positional 01/18/2017 Hearing loss, sensineural, AU 01/17/2017 Anticoagulation, chronic, wa rfarin, target INR 2.0 - 2.5 (while on Plavix/Clopidogrel) 01/17/2017 COPD, emphysema, mod-severe 01/17/2017 DM, A1c 7.2% March 2020 03/25/2015 Resolved Problems Problem Noted Date Diagnosed Date Resolved Date Chest pain 05/24/2019 08/20/2019 Anemia, iron deficiency 09/11/201811/30 PAD, LLE, w/ ischemic foot ulcer 07/11/2018 02/23/2019 Routine general medical exam ination at a health care facility 07/10/2018 08/20/2019 DM, w/ Foot Ulcer 07/10/2018 02/23/2019 Diabetic ulcer of left midfo ot associated with diabetes mellitus due to underlying condition, limited to breakdown of skin 06/03/2018 08/20/2019 Leukocytosis, nos, mild 01/08/201810/31 Anemia, nos, mild 01/08/2018 12/12/2019 Atherosclerosis of [place] ar teries of extremity with intermittent claudication 08/24/2017 06/13/2020 Foot pain 01/18/2017 08/29/2017 Dizziness 01/17/2017 06/09/2018 Immunizations Immunization Administration Dates Next Due Influenza quadrivalent PF 2019,02/13/2019 Influenza quadrivalent high- dose (Fluzone High-Dose) 02/12/2020 Influenza trivalent 03/06/2010 Influenza trivalent high-dos e (Fluzone High-Dose) 02/12/2020,02/08/2018,02/03/2016 Influenza, unspecified 02/14/2015,03/17/2009 Novel influenza [id number], all formulations 2008 Pneumococcal conjugate PCV13 (Prevnar 13) 2015 Pneumococcal polysaccharide PPSV23 (Pneumovax 23) 08/08/2015 Family History Medical History Relation Comments Cancer No Hx Of Heart Disease No Hx Of Social History Tobacco Use Types Packs/Day Years Used Date Smoking Tobacco: Former Cigarettes Q uit: 01/17/2002 Alcohol Use Standard Drinks/Week Comments No 0 (1 standard drink = 0.6 oz pur e alcohol) PHQ-2 Answer Date Recorded PHQ2 Total Score 0 07/14/2020 Sex and Gender Information Value Date Recorded Sex Assigned at Not on file Legal Sex Male 9:45 AM PDT Gender Identity Not on file Sexual Orientation Not on file Last Filed Vital Signs Vital Sign Reading Time Taken Comments Blood Pressure 135/64 08/21/2020 1:53 PM PDT Pulse 92 08/21/2020 1:53 PM PDT Temperature 36.4 C (97.5 F) 07/09/2020 11:50 AM PST Respiratory Rate 16 05/07/2020 9:55 AM PST Oxygen Saturation 97% 07/09/2020 11: 50 AM PST Inhaled Oxygen Concentration - - Weight 101.9 kg (224 lb 11.2 oz) 08/21/2020 1:49 PM PDT Height 172.7 cm (5' 8) 08/21/2020 1:49 PM PDT Body Mass Index 34.17 08/21/2020 1:49 PM PDT Plan of Treatment Not on file Insurance MEDICARE [employer] [facility] Care Teams Engineering Laboratory Technician Relationship Specialty Start Date End Date Cristopher Randall MD PCP - General Family Practice 08/29/17
--- OUTSIDE RECORDS SUMMARY | 2025-03-22 16:02 | XMS_ITS | Clinical Summary ---
Author Organization [facility] Address [address] [place] [address] Care Team Providers Care Agricultural Specialist Name Role Phone Pcp, None Selected Primary Care Provider Unavail able Allergies Active Allergy Reactions Criticality Noted Date Comments Penicillins Dermatitis,Hives Medium 01/17/2017 Sulfamethoxazole-Trimeth oprim High 12/08/2022 Other Reaction(s): Other (See Comments) Kidney failure Medications ferrous sulfate 325 mg (65 mg iron) tablet Take 1 tablet (325 mg total) by mouth daily with breakfast Active furosemide (LASIX) 20 mg tablet Take 1 tablet (20 mg total) by mouth daily Active glimepiride (AMARYL) 1 mg tablet Take 1 tablet (1 mg total) by mouth every morning before breakfast Takes .5 tablet Active ipratropium-alb uteroL (DUO-NEB) 0.5-2.5 mg/3 mL nebulizer solution Take 3 mL by nebulization every 6 (six) hours as needed for wheezing Active metFORMIN (GLUCOPHAGE) 1,000 mg tablet Take 1 tablet (1,000 mg total) by mouth 2 (two) times a day with meals Active mometasone (ASMANEX) 220 mcg/ actuation (14) inhaler Inhale 2 puffs once daily Rinse mouth with water after use to reduce aftertaste and incidence of candidiasis. Do not swallow. Active nitroglycerin (NITROSTAT) 0.[address] 1 tablet (0.4 mg total) under the tongue every 5 (five) minutes as needed for chest pain Active olodateroL (STRIVERDI RESPIMAT) 2.5 mcg/actuation inhaler Inhale 2 puffs once daily Active predniSONE 2 mg tablet,delayed release (DR/EC) Take 1 tablet by mouth daily Active albuterol HFA (ProAir) 90 mcg/actuation inhaler Inhale 2 puffs every 6 (six) hours as needed for wheezing Active omeprazole (PriLOSEC) 20 mg capsule Take 1 capsule (20 mg total) by mouth daily Active empagliflozin (JARDIANCE) 25 mg tablet tablet Take 1 tablet (25 mg total) by mouth daily 1/2 pill daily Active montelukast (SINGULAIR) 10 mg tablet Take 1 tablet (10 mg total) by mouth nightly 2 Active semaglutide (Ozempic) 0.25 mg or 0.5 mg(2 mg/1.5 mL) pen injector Inject under the skin Active tiotropium bromide (Spiriva Respimat) 2.5 mcg/actuation inhaler Inhale 2 puffs 2 Active nitroglycerin (NITRO-BID) 2.5 mg CR capsule Take 1 capsule (2.5 mg total) by mouth every 12 hours Active cyanocobalamin 1,000 mcg tablet Take 1 tablet (1,000 mcg total) by mouth daily Active metoprolol tartrate (LOPRESSOR) 100 mg tablet Take 1 tablet (100 mg total) by mouth 2 (two) times a day 180 tablet 3 3 Active apixaban (ELIQUIS) 5 mg tablet Take 1 tablet (5 mg total) by mouth 2 (two) times a day 180 tablet 3 3 Active Active Problems Problem Noted Date Diagnosed Date Osteomyelitis 06/15/2023 Atrial fibrillation, permanent 03/28/2020 Overview (03/28/2020): Since 2004, rate controlled, anticoagulated on warfarin Dizziness 03/28/2020 Internal carotid artery occlusion, right 020 Old cerebrovascular accident (CVA) without late effect 08/20/2019 Rest pain of left lower extr emity concurrent with and due to atherosclerosis of bypass graft 07/10/2018 Angina pectoris associated with type 2 diabetes mellitus 06/09/2018 Hypertension associated with diabetes 06/09/2018 Atherosclerosis of [place] ar teries of extremity with intermittent claudication 08/24/2017 senior living (current) use of anticoagulants 2016 Panlobular emphysema 01/17/2017 Immunizations Immunization Administration Dates Next Due FLU High Dose 65+ Trivalent, PF (FLUZONE) 2019,02/08/2018,02/03/2016 FLU PF 6+Mos Quad (Fluzone, FluLaval, Fluarix) 2019,02/13/2019 FLU PF 6+Mos Trivalent 0.5ML (Fluzone, FluLaval, Fluarix) 02/12/2020,02/14/2015,03/06/2010 H1N1 All Forms 03/17/2009 Influenza, Seasonal, Injectable 03/06/2010 Moderna SARS-CoV-2 Vaccine Monovalent 07/15/2020 ,06/17/2020 Pneumococcal Conjugate PCV13 (Gpidruw30) 016 Pneumococcal Polysaccharide PPV23 ([id number]) 08/08/2015 Family History Medical History Relation Comments No Known Problems Father Heart disease Maternal Grandfather No Known Problems Maternal Grandmother No Known Problems Mother No Known Problems Paternal Grandfather No Known Problems Paternal Grandmother No Known Problems Sister Relation Status Comments Father Maternal Grandfather Maternal Grandmother Mother Paternal Grandfather Paternal Grandmother Sister Alive Social History Tobacco Use Types Packs/Day Years Used Date Smoking Tobacco: Former Cigarettes 1 40 1 960 - 2000 Smokeless Tobacco: Never Tobacco Cessation:Counseling Given: Not Answered Alcohol Use Standard Drinks/Week Comments Not Currently 0 (1 standard drink = 0.6 oz pur e alcohol) Sex and Gender Information Value Date Recorded Sex Assigned at Not on file Legal Sex Male 2:51 PM PDT Gender Identity Not on file Sexual Orientation Not on file Last Filed Vital Signs Vital Sign Reading Time Taken Comments Blood Pressure 151/94 08/09/2023 9:53 AM PDT Pulse 63 08/09/2023 9:53 AM PDT Temperature 36.2 C (97.2 F) 08/09/2023 9:53 AM PDT Respiratory Rate 16 08/09/2023 9:53 AM PDT Oxygen Saturation 99% 08/09/2023 9:53 AM PDT Inhaled Oxygen Concentration - - Weight 88 kg (194 lb) 08/09/2023 9:53 AM PDT Height 172.7 cm (5' 8) 06/10/2023 1:21 PM PST Body Mass Index 29.5 06/10/2023 1:21 PM PST Plan of Treatment Health Maintenance Due Date Last Done Comments Diabetic Eye Exam 1944 Medicare Annual Wellness (AWV) 1945 Diabetes Urine Protein Screening 1954 Diabetic Foot Exam 1954 Depression Screening (PHQ-2) 1956 Zoster Vaccines (1 of 2) 1963 Fall Risk Screening 2009 RSV Patients Over 60 years OR qualifying ( Patients) (1 - 1-dose 75+ series) 2019 Hemoglobin A1C 10/23/2023 04/23/2023, 12/2 06/2022, 03/25/2020, Additional history exists COVID-19 Vaccine ( season) 2024 07/01/2023, 09/16/2022, 02/19/2022, Additional history exists Influenza Vaccine (#1) 2025 , 03/10/2022, 02/03/2021, Additional history exists DTaP,Tdap,and Td Vaccines (2 - Td or Tdap) 06/30/2033 07/01/2023 HM Pneumococcal Adult 50+ Completed 08/08/2015, HPV Vaccines Aged Out No longer eligi ble based on patient's age to complete this topic Hepatitis A Vaccines Aged Out No long er eligible based on patient's age to complete this topic Hepatitis B Vaccines Aged Out No long er eligible based on patient's age to complete this topic IPV Vaccines Aged Out No longer eligi ble based on patient's age to complete this topic MMR Vaccines Aged Out No longer eligi ble based on patient's age to complete this topic Insurance MEDICARE PART A AND B [employer] [place] [place] [id number] Care Teams Agricultural Specialist Relationship Specialty Start Date End Date Pcp, None Selected PCP - General 08/16/24
--- OUTSIDE RECORDS SUMMARY | 2025-03-22 16:02 | XMS_ITS | Encounter Summary ---
Author Organization [facility] Address [address] [place] [address] Care Team Providers Care Blender Machine Operator Name Role Phone Pcp, None Selected Primary Care Provider Unavail able Encounter Details Date Type Department Care Team (Late st Contact Info) Description 04/28/[address] [facility] Cardiology [address], [place] [address] Hermes Alcaraz MD [address] [place] [address] [address] [place] [address] ASHD (arteriosclerotic heart disease); Lightheadedness; History of heart artery stent Social History Tobacco Use Types Packs/Day Years [...] Procedure Name Priority Date/Time Associated Diagnosis Comments NM CARDIAC STRESS TEST EXERCISE Routine 04/23/2020 ASHD (arteriosclerotic heart disease) Lightheadedness History of heart artery stent documented in this encounter Results * NM CARDIAC STRESS TEST EXERCISE (04/23/2020) Anatomical Region Laterality Modality N/A Nuclear Medicine Hermes Alcaraz MD [facility] NM PROCEDURES Final Result documented in this encounter Visit Diagnoses Diagnosis ASHD (arteriosclerotic heart disease) Coronary atherosclerosis of unspecified type of vessel, [place] or graft Lightheadedness Dizziness and giddiness History of heart artery stent documented in this encounter Care Teams Blender Machine Operator Relationship Specialty Start Date End Date Pcp, None Selected PCP - General 08/16/24 documented as of this encounter
--- OUTSIDE RECORDS SUMMARY | 2025-03-22 16:03 | XMS_ITS | Encounter Summary ---
Author Organization [facility] Address [address] [place] [address] Care Team Providers Care Computer Systems Security Administrator Name Role Phone Pcp, None Selected Primary Care Provider Unavail able Encounter Details Date Type Department Care Team (Late st Contact Info) Description 04/28/2022 Abstract [facility] Health Information Management [address] [place] [id number] [employer] Chassis Mechanic, Provider, Social History Tobacco Use Types Packs/Day Years [...] Procedure Name Priority Date/Time Associated Diagnosis Comments LIPID PANEL Routine 04/27/2022 documented in this encounter Results * Lipid panel (04/27/2022) External LDL Cholesterol 82 mg/dL Blood Venous blood / Unknown us Ordering Provider LAB BLOOD ORDERABLES Final Res ult documented in this encounter Visit Diagnoses Not on filedocumented in this encounter Care Teams Computer Systems Security Administrator Relationship Specialty Start Date End Date Pcp, None Selected PCP - General 08/16/24 documented as of this encounter
== END ==
LOC: WC 11:26
PROVIDERS: PCP Family Medicine; Referring Provider Family Medicine; Visit Provider Surgery
DX: E11.622 Type 2 diabetes mellitus with other skin ulcer (principal); L97.812 Non-pressure chronic ulcer of other part of right lower leg with fat layer exposed; I73.9 Peripheral vascular disease, unspecified; R60.0 Localized edema; Z89.511 Acquired absence of right leg below knee; Z79.01 Long term (current) use of anticoagulants
CPT/HCPCS: 11042

== ENCOUNTER → 2025-04-02 10:35 | Outpatient (CLI) | payer MEDICARE, OTHER, SELFPAY | LOC: WC 10:40 | PROVIDERS: PCP Family Medicine; Referring Provider Family Medicine; Visit Provider Surgery | DX: E11.622 Type 2 diabetes mellitus with other skin ulcer (principal); L97.812 Non-pressure chronic ulcer of other part of right lower leg with fat layer exposed; T87.89 Other complications of amputation stump; I73.9 Peripheral vascular disease, unspecified; R60.0 Localized edema | CPT/HCPCS: 11042; 99213 ==

== ENCOUNTER → 2025-04-09 10:40 | Outpatient (CLI) | payer MEDICARE, OTHER, SELFPAY | LOC: WC 10:42 | PROVIDERS: PCP Family Medicine; Referring Provider Family Medicine; Visit Provider Surgery | DX: L97.812 Non-pressure chronic ulcer of other part of right lower leg with fat layer exposed (principal); E11.51 Type 2 diabetes mellitus with diabetic peripheral angiopathy without gangrene; E11.622 Type 2 diabetes mellitus with other skin ulcer; R60.0 Localized edema; Z89.511 Acquired absence of right leg below knee; Z79.01 Long term (current) use of anticoagulants | CPT/HCPCS: 11042 ==

== ENCOUNTER → 2025-04-16 10:50 | Outpatient (CLI) | payer MEDICARE, OTHER, SELFPAY | LOC: WC 10:51 | PROVIDERS: PCP Family Medicine; Referring Provider Family Medicine; Visit Provider Surgery | DX: E11.622 Type 2 diabetes mellitus with other skin ulcer (principal); L97.812 Non-pressure chronic ulcer of other part of right lower leg with fat layer exposed; I73.9 Peripheral vascular disease, unspecified; R60.0 Localized edema; Z79.01 Long term (current) use of anticoagulants | CPT/HCPCS: 11042 ==

== ENCOUNTER → 2025-04-30 10:37 | Outpatient (CLI) | payer MEDICARE, OTHER, SELFPAY | LOC: WC 10:38 | PROVIDERS: PCP Family Medicine; Referring Provider Family Medicine; Visit Provider Surgery | DX: E11.622 Type 2 diabetes mellitus with other skin ulcer (principal); L97.812 Non-pressure chronic ulcer of other part of right lower leg with fat layer exposed; Z89.511 Acquired absence of right leg below knee; E11.51 Type 2 diabetes mellitus with diabetic peripheral angiopathy without gangrene; I48.91 Unspecified atrial fibrillation; Z79.01 Long term (current) use of anticoagulants; I25.10 Atherosclerotic heart disease of native coronary artery without angina pectoris; E11.22 Type 2 diabetes mellitus with diabetic chronic kidney disease; I12.9 Hypertensive chronic kidney disease with stage 1 through stage 4 chronic kidney disease, or unspecified chronic kidney disease; N18.9 Chronic kidney disease, unspecified; Z87.891 Personal history of nicotine dependence; Z79.85 Long-term (current) use of injectable non-insulin antidiabetic drugs; Z88.0 Allergy status to penicillin; Z88.1 Allergy status to other antibiotic agents | CPT/HCPCS: 11042; 99213 ==